=== PATIENT | female | born 1965 | race Caucasian/White ===

== ENCOUNTER 2020-03-16 09:53 | Emergency (ER) | payer OTHER ==
--- OUTSIDE RECORDS SUMMARY | 2020-03-16 09:56 | XMS REPORT | Summary of Care ---
:1965 Author Organization [facility] - [facility] Address [address] [place] [id number] Care Team Providers Name Role Phone Pcp, Patient Does Not Have A Primary Care Provider +[id number] 0-0000 Reason for Visit Reason Comments Follow-up Impingement syndrome of righ t shoulder Encounter Details Date Type Department Care Team Description 01/20/2020 Office Visit [facility] Orthopaedic Malik Alston S, T raumatic complete Surgery- [place] PAC tear of right rotator [address], [address], initial [address] encounter (Primary Dx) [place] [address] [address] [place], [place] [phone] Allergies No Known Allergiesdocumented as of this encounter (statuses as of 01/20/2020) Medications Medication Sig Dispensed Refills Start Date End Date Status ALPRAZolam (XANAX) 0.5 mg 0 03/19/2015 Active tablet buPROPion XL (WELLBUTRIN 0 02/12/2015 Active XL) 300 mg 24 hr tablet omeprazole (PRILOSEC) 40 0 03/31/2015 Active mg capsule valACYclovir (VALTREX) 1 0 04/11/2015 Active gram tablet zolpidem (AMBIEN CR) 12.5 0 04/12/2015 Active mg CR tablet cyclobenzaprine 10 mg TAKE 1 TABLET BY 0 11/11/2019 Active tablet MOUTH AT BEDTIME NEEDED FOR SPASM. WILL CAUSE SLEEPINESS, NO DRIVING estradiol 2 mg tablet Take 2 mg by 0 09/20/2019 Active mouth daily. FLUoxetine 20 mg capsule Take 20 mg by 0 09/21/2019 Active mouth daily. medroxyPROGESTERone 10 mg Take 10 mg by 0 11/19/2019 Active tablet mouth daily. rizatriptan 10 mg Take 10 mg by 0 11/03/2019 Active disintegrating tablet mouth daily. methylPREDNISolone Take by mouth 21 Each 0 12/04/2019 Active (MEDROL, JOSEFA,) 4 mg SEE-INSTRUCTIONS tablets . follow package directions meloxicam 15 mg Take 1 tablet by 30 tablet 0 01/01/2020 Active tabletIndications: mouth daily for 0 Impingement syndrome of 30 days. right shoulder, Internal derangement of multiple sites of right knee documented as of this encounter (statuses as of 01/20/2020) Active Problems Problem Noted Date Right knee pain 04/14/2015 documented as of this encounter (statuses as of 01/20/2020) Social History Tobacco Use Types Packs/Day Years Used Date Never Smoker Smokeless Tobacco: Never Used Alcohol Use Drinks/Week oz/Week Comments Never 0 Standard drinks or equivalent 0.0 Alcohol Habits Answer Date Recorded How often do you have a drink containing alcohol? Never 12/04/2019 How many drinks containing alcohol do you have on a typical Not asked day when you are drinking? How often do you have six or more drinks on one occasion? No t asked Sex Assigned at Date Recorded Not on file COVID-19 Exposure Response Date Recorded In the last month, have you been in contact with No / Unsure 01/20/2020 9:59 AM CDT someone who was confirmed or suspected to have Coronavirus / COVID-19? documented as of this encounter Last Filed Vital Signs Vital Sign Reading Time Taken Comments Blood Pressure 115/78 01/20/2020 10:26 AM CDT Pulse 78 01/20/2020 10:26 AM CDT Temperature - - Respiratory Rate - - Oxygen Saturation - - Inhaled Oxygen Concentration - - Weight 95.3 kg (210 lb) 01/20/2020 10:26 AM CDT Height 177.8 cm (5' 10") 01/20/2020 10:26 AM CDT Body Mass Index 30.13 01/20/2020 10:26 AM CDT documented in this encounter Progress Notes Malik Alston, PAC - 01/20/2020 10:00 AM CDT Cc: Chief Complaint Patient presents with Follow-up Impingement syndrome of right shoulder Amy Segura is a 54 year old female. On her last office visit she was prescribed meloxicam and had a cortisone injection in the right shoulder, 01/01/2020, her pain resolved a week ago and she was doing quite well until yesterday. She had an acute injury where she fell on her outstretched right hand after her dog that weighs 50 pounds hit her in the chest. Afterwards she had an acute loss of strength and motion she can only flex her arm at 20 but she can actively abduct 180 She was seen on 12/04/[address] Cosby she had imaging either CT or MR that showed that she had bursitis only we tried a Medrol Dosepak and that worked well while she was on it but after it wore offbut she is not getting relief any longer for her right shoulder. Seen her previously for arthritic pain in her right knee she has medial joint line pain and lateral joint line pain that is exacerbated today Shoulder Pain The pain is present in the right shoulder. This is a recurrent problem. The current episode started 1 to 4 weeks ago. There has been no history of extremity trauma. The problem occurs constantly. The problem has been gradually worsening. The quality of the pain is described as aching, burning and sharp. The pain is at a severity of 5/10. The pain is moderate. Associated symptoms include an inability to bear weight, joint swelling and a limited range of motion. The symptoms are aggravated by activity. She has tried NSAIDS, rest and movement for the symptoms. The treatment provided no relief. Allergies Amy has No Known Allergies. Medications Outpatient Medications Prior to Visit Medication Sig Dispense Refill meloxicam 15 mg tablet Take 1 tablet by mouth daily for 30 days. 30 tablet 0 cyclobenzaprine 10 mg tablet TAKE 1 TABLET BY MOUTH AT BEDTIME NEEDED FOR SPASM. WILL CAUSE SLEEPINESS, NO DRIVING estradiol 2 mg tablet Take 2 mg by mouth daily. FLUoxetine 20 mg capsule Take 20 mg by mouth daily. medroxyPROGESTERone 10 mg tablet Take 10 mg by mouth daily. methylPREDNISolone (MEDROL, JOSEFA,) 4 mg tablets Take by mouth SEE- INSTRUCTIONS. follow package directions 21 Each 0 rizatriptan 10 mg disintegrating tablet Take 10 mg by mouth daily. ALPRAZolam (XANAX) 0.5 mg tablet buPROPion XL (WELLBUTRIN XL) 300 mg 24 hr tablet omeprazole (PRILOSEC) 40 mg capsule valACYclovir (VALTREX) 1 gram tablet zolpidem (AMBIEN CR) 12.5 mg CR tablet No facility-administered medications prior to visit. Histories Past Medical History: Diagnosis Date Anxiety Hx of migraines Past Surgical History: Procedure Laterality Date APPENDECTOMY CHOLECYSTECTOMY Social History Socioeconomic History Marital status: Spouse name: Not on file Number of children: Not on file Years of education: Not on file Highest education level: Not on file Occupational History Not on file Social Needs Financial resource strain: Not on file Food insecurity Worry: Not on file Inability: Not on file Transportation needs Medical: Not on file Non-medical: Not on file Tobacco Use Smoking status: Never Smoker Smokeless tobacco: Never Used Substance and Sexual Activity Alcohol use: Never Alcohol/week: 0.0 standard drinks Frequency: Never Drug use: Not on file Sexual activity: Not on file Lifestyle Physical activity Days per week: Not on file Minutes per session: Not on file Stress: Not on file Relationships Social connections Talks on phone: Not on file Gets together: Not on file Attends denominational service: Not on file Active member of club or organization: Not on file Attends meetings of clubs or organizations: Not on file Relationship status: Not on file Intimate partner violence Fear of current or ex partner: Not on file Emotionally abused: Not on file Physically abused: Not on file Forced sexual activity: Not on file Other Topics Concern Not on file Social History Narrative Not on file Family History Problem Relation Age of Onset Diabetes Father Review of Systems Constitutional: Positive for activity change. HENT: Negative. Eyes: Negative. Respiratory: Negative. Cardiovascular: Negative. Gastrointestinal: Negative. Genitourinary: Negative. Musculoskeletal: Positive for joint swelling. Negative for gait problem and myalgias. Skin: Negative. Neurological: Negative. Psychiatric/Behavioral: Negative. Endocrine: Endocrine negative Vital Signs Ht 70" (177.8 cm) | Wt 95.3 kg (210 lb) | BMI 30.13 kg/m Physical Exam Musculoskeletal: Comments: Physical Exam Constitutional: oriented to person, place, and time. appears well-developed and well-nourished. HENT: Head: Normocephalic and atraumatic. Right Ear: External ear normal. Left Ear: External ear normal. Eyes: Conjunctivae are normal. Neck: Normal range of motion. No strabismus Neck supple. Cardiovascular: Normal rate and regular rhythm. Pulmonary/Chest: Normal respiratory rate equal chest rise and fall in no apparent distress Abdominal: Abdomen nondistended nontender Neurological: alert and oriented to person, place, and time. No asymmetry Skin: Skin is warm and dry. Psychiatric: normal mood and affect. behavior is normal. Judgment and thought content normal. Nursing note and vitals reviewed. She is tender in her biceps tendon on the right there is no asymmetry to her proximal biceps muscle there is no distal biceps pain she has a positive speed's test with pain and cannot flex her arm morethan 20 she is able to abduct 180 carefully. Has got a profound weakness to supraspinatus strength testing She had plain x-rays of her right shoulder performed at [facility] emergency centers no acute abnormality was found them they performed x-rays on another date 01/19/2020 and found no acute fracture or dislocation acromioclavicular osteoarthritis had a helical CT of the cervical spine that had no acute abnorm ality it was performed on 11/11/2019 Assessment/Plan 1. Traumatic complete tear of right rotator cuff, initial encounter She has signs on her physical exam of bicipital tendinitis and a complete tear of the supraspinatus of her rotator cuff she has been conservatively managing her shoulder pain for on this since November, we will proceed with an MRI of her right shoulder and follow-up with the results. documented in this encounter Plan of Treatment Health Maintenance Due Date Last Done Comments HEPATITIS C (HCV) SCREEN 1965 DTaP,Tdap,and Td Vaccines (1 - 1982 Tdap) PAP SMEAR 1984 Breast Cancer Screening 2003 (MAMMOGRAM) COLON CANCER SCREENING ANNUAL 2013 FIT/FOBT COLON CANCER SCREENING FIT DNA 2013 EVERY 3 YEARS COLON CANCER SCREENING 2013 SIGMOIDOSCOPY EVERY 5 YEARS COLONOSCOPY 2013 Colorectal Cancer Screening 2013 Zoster Recombinant Vaccine 2013 (SHINGRIX) (1 of 2) INFLUENZA VACCINE (#1) 2020 Depression Screening 12/31/2020 01/01/2020 PNEUMOCOCCAL 0-64 YEARS COMBINED Aged Out No longer eligible based on SERIES patient's age to complete this topic documented as of this encounter Results Not on filedocumented in this encounter Visit Diagnoses Diagnosis Traumatic complete tear of right rotator cuff, initial encounter - Primary documented in this encounter documented as of this encounter
--- OUTSIDE RECORDS SUMMARY | 2020-03-16 09:56 | XMS REPORT | Summary of Care ---
:1965 Author Organization [facility] - [facility] Address [address] [place] [id number] Care Team Providers Name Role Phone Pcp, Patient Does Not Have A Primary Care Provider +1-000-00 0-0000 Reason for Visit Reason Comments Follow-up Right Shoulder Inflammation Encounter Details Date Type Department Care Team Description 01/01/2020 Office Visit [facility] Orthopaedic Malik Alston I mpingement syndrome of right shoulder (Primary Dx); Surgery- [place] PAC Internal derangement of multiple sites o f right knee [address], [address] [place] [address] [address] [place], [place] [phone] Allergies No Known Allergiesdocumented as of this encounter (statuses as of 01/01/2020) Medications Medication Sig Dispensed Refills Start Date [...] as of this encounter (statuses as of 01/01/2020) Active Problems Problem Noted Date Right knee pain 04/14/2015 documented as of this encounter (statuses as of 01/01/2020) Social History Tobacco Use Types Packs/Day Years [...] Assigned at Date Recorded Not on file Job Start Date Occupation Industry Not on file Not on file Not on file Travel History Travel Start Travel End No recent travel history available. COVID-19 Exposure Response Date Recorded In the last month, have you been in contact with No / Unsure 01/01/2020 8:18 AM CDT someone who was confirmed or suspected to have Coronavirus / COVID-19? documented as of this encounter Last Filed Vital Signs Vital Sign Reading Time Taken Comments Blood Pressure 123/70 01/01/2020 8:21 AM CDT Pulse 83 01/01/2020 8:21 AM CDT Temperature - - Respiratory Rate - - Oxygen Saturation - - Inhaled Oxygen Concentration - - Weight 95.3 kg (210 lb) 01/01/2020 8:21 AM CDT Height 177.8 cm (5' 10") 01/01/2020 8:21 AM CDT Body Mass Index 30.13 01/01/2020 8:21 AM CDT documented in this encounter Progress Notes Malik Alston S, PAC - 01/01/2020 8:15 AM CDT Cc: Chief Complaint Patient presents with Follow-up Right Shoulder Inflammation Amy Segura is a 54 year old female. She was seen on 12/04/[address] [...] Prior to Visit Medication Sig Dispense Refill cyclobenzaprine 10 mg tablet TAKE 1 TABLET [...] Financial resource strain: Not on file Food insecurity: Worry: Not on file Inability: Not on file Transportation needs: Medical: Not on file Non-medical: Not on file Tobacco Use Smoking status: Never Smoker Smokeless tobacco: Never Used Substance and Sexual Activity Alcohol use: Never Alcohol/week: 0.0 standard drinks Frequency: Never Drug use: Not on file Sexual activity: Not on file Lifestyle Physical activity: Days per week: Not on file Minutes per session: Not on file Stress: Not on file Relationships Social connections: Talks on phone: Not on file Gets together: Not on file Attends hoahaoism service: Not on file Active member of club or organization: Not on file Attends meetings of clubs or organizations: Not on file Relationship status: Not on file Intimate partner violence: Fear of current or ex partner: Not [...] Psychiatric/Behavioral: Negative. Endocrine: Endocrine negative Vital Signs BP 123/70 | Pulse 83 | Ht 70" (177.8 cm) | Wt 95.3 kg (210 lb) | BMI 30.13 kg/m Physical Exam Musculoskeletal: Physical Exam Constitutional: oriented to person, place, [...] normal. Nursing note and vitals reviewed. She has a positive Epstein and Mineer impingement test of the right shoulder her strength is 5 over 5 to internal rotation external rotation she does have some weakness to supraspinatus strength testing on the right it was 45 compared to 5 over 5 on the left Assessment/Plan 1. Impingement syndrome of right shoulder 2. 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 Patient received an ultrasound guided injection of 1cc kenalog and 4cc lidocaine to the right shoulder. The patient was examined with ultrasound machine and the posterior injection portal was localized and the skin was indented with a needle. The coracoid was identified anteriorly. The skin was prepped with Betadine and then with alcohol. Ethyl chloride spray was used to provide local anesthesia. The needle was advanced under ultrasound guidance just below the posterior corner of the acromion directed toward the coracoid. 1 cc of Kenalog and 4 cc of 1% lidocaine without epinephrine were injected into the subacromial space. The puncture wound was cleansed with alcohol dried with a sterile 4 x 4 and a sterile Band-Aid was applied. Patient tolerated procedure well. No reactions noted. External rotation -Lay on your side and take a 2-1/2 pound weight with the weight in your top hand and externally rotate until the hand is parallel with the bed, perform the exercises in sets of 10.Do as many sets of 10 as you can without pain iuntil you can do 6 sets of 10, perform exercises once a day. Internal rotation- Then put the weight in your lower hand internally rotate the hand to the body perform reps -same as previous. Supraspinatus with the arm out to the side, bringing your arms forward 30 degrees or 1 foot anteriorturn the thumbs down with a 2-1/2 pound weight lower your arms and bring them back up to shoulder height. Do not go higher than shoulder height perform sets of 10. do his many sets of ten as you can pain-free until they can do 6 sets of 10. Wall Crawl For range of motion perform the wall crawl test allowing her fingers to crawl up the wall as high asyou can until you can get to the point where your arm is by your head, which is 180 degrees of abduction. When you get high enough to hold the top of the door or Hold onto that with your hand and thenlower your body to bring your arm to your head. they are all daily exercises. documented in this encounter Plan of Treatment Health Maintenance Due Date Last Done Comments HEPATITIS C (HCV) SCREEN 1965 DTaP,Tdap,and Td Vaccines (1 - 1974 Tdap) PAP SMEAR 1984 Breast Cancer Screening 2003 (MAMMOGRAM) COLONOSCOPY 2013 Zoster Recombinant Vaccine 2013 (SHINGRIX) (1 of 2) INFLUENZA VACCINE (#1) 2020 Depression Screening 12/31/2020 01/01/2020 PNEUMOCOCCAL 0-64 YEARS COMBINED Aged Out No longer eligible based on SERIES patient's age to complete this topic documented as of this encounter Results Not on filedocumented in this encounter Visit Diagnoses Diagnosis Impingement syndrome of right shoulder - Primary Other affections of shoulder region, not elsewhere classified Internal derangement of multiple sites o f right knee documented in this encounter documented as of this encounter
--- OUTSIDE RECORDS SUMMARY | 2020-03-16 09:56 | XMS REPORT | Continuity of Care Document ---
:1965 Author Organization [facility] t Address [facility] [place] [address] Care Team Providers Name Role Phone CARMELA Attending Clinician Unavailable Doctor Unassigned, Name Attending Clinician Unavailable Alecia CHUA S Attending Clinician Jose Cosby MD Attending Clinician Problems Condition Condition Condition Status Onset Resolution Last Treating Co mments Source Name Details Category Date Date Treatment Clinician Date Rotator Rotator Problem Active Univers cuff cuff ity of strain, strain, [place] right, right, Physici initial initial ans encounter encounter History of History of Problem Resolve Univers arthritis arthritis d ity of [place] Physici ans History of History of Problem Resolve Univers depression depression d it y of [place] Physici ans History of History of Problem Resolve Univers Gall[place] d it y [place] problem [place] problem [place] Physici ans History of History of Problem Resolve Univers pancreatit pancreatit d it y of is is [place] Physici ans Allergies, Adverse Reactions, Alerts This patient has no known allergies or adverse reactions. Family History Family Member Diagnosis Comments Start Date Stop Date Source Unknown Family Family history of Other Uni versity of [place] Member diabetes mellitus Physici ans Unknown Family Family history of Other [facility] vers[place] Member Heart trouble Physicians Unknown Family Family history of Other [facility] vers[place] Member arthritis Physicians Unknown Family Family history of Other [facility] vers[place] Member malignant neoplasm Physic ians Medications Ordered Filled Start Stop Current Ordering Indication Dosage Frequency Signature Comments Components Source Medication Medication Date Date Medication? Clinician (SIG) Name Name Cyclobenzap Cyclobenzap Mary CHURCH Q0.3333D TAKE 1 Univers rine HCl - rine HCl - 9 CARMELA TABLET 3 ity of 5 MG Oral 5 MG Oral 00:00: M.D. TIMES [place] Tablet Tablet 00 DAILY Physici NEEDED. ans Procedures Procedure Date / Time Performed Performing Clinician Korin e MR Shoulder wo 2020-03-04 00:00:00 [facility] f [place] contrast [id number] Physicians Plan of Care Planned Activity Planned Date Details Comments Source Future Appointment 2020-04-01 Patrick EDGE [facility] 15:45:00 Shayy GIBSON Encounters Start End Encounter Admission Attending Care Care Encounter Source Date/Time Date/Time Type Type Clinicians Facility Department ID 2020-03-15 2020-03-15 Outpatient [id number] [facility] 11:16:00 11:16:00 [facility] 2020-03-11 2020-03-11 Appointmen CARMELA [facility] Orthopedics [id number] Univers 13:15:00 13:15:00 t; Joe CHURCH at [facility] RANJIT Medicine Physici [facility] A 2020-03-04 2020-03-04 Appointmen CARMELA [facility] Orthopedics [id number] Univers 11:15:00 11:15:00 t; Joe CHURCH at [facility] RANJIT [facility] Physici [facility] A 2020-03-02 2020-03-02 Orders Doctor NIXON [id number] 00:00:00 00:00:00 Only Unassigned, [place] [id number] [facility] [id number] 2020-02-28 2020-02-28 CHRISTINA Ward [id number] 00:00:00 00:00:00 [facility] [id number] Surgical [id number] Specialti [id number] [address] [place] 2020-02-19 2020-02-19 Office CHRISTINA Cosby [id number] 09:27:22 10:09:07 Visit [facility] [id number] Surgical [id number] Specialti [id number] es [address] [place] 2020-02-19 2020-02-19 Orders Doctor TIFFANI [id number] 00:00:00 00:00:00 Only [place]assigned, [place] [id number] [facility] [id number] Results Test Test Test Results Result Source Description Time Comments Comments MR Shoulder wo 2020-02- PROCEDURE [facility] [id number] INFORMATION:Exam: MR Right Michael 17:13:00 Upper Extremity Joint Phy sicians Without Contrast; ShoulderExam date and time: 03/10/2020 5:14 PMAge: 54 years oldClinical indication: Strain of muscle(s) and tendon(s) of the rotator cuff ofright shoulder, initial encounter; Additional info: S46.011a strain ofmuscle(s) and tendon(s) of the rotator cuff of right shoulder, initialencounter/s46.011a strain of muscle(s) and tendon(s) of the rotator cuff ofright shoulder, initial encounter; 54-year-old female reports history of rightshoulder pain and subjective instability for approximately 1 week aftershoulder dislocation on March 01, 2020, patient reports shoulderdislocation when she raised arm above headTECHNIQUE:Imaging protocol: MR of the Right upper extremity without contrast. Examfocused on the shoulder.COMPARISON:1. CR SHOULDER SERIES DX, RIGHT 03/01/2020 8:36 PM2. SHOULDER SERIES DX, RIGHT 03/01/2020 2:50:58 PMFINDINGS:Rotator cuff:1. High-grade full-thickness and near complete tear of the supraspinatustendon at its insertion. There are small bands of residual intact insertionalfibers anteriorly and posteriorly. Bulk of the tendon is retracted 3 cm.2. High-grade complete tear of the infraspinatus tendon with 5 cm tendonretraction.3. The subscapularis is intact.4. Intramuscular edema within the supraspinatus and infraspinatus musclescompatible with acute/subacute rotator cuff injury. No definite rotator cuffmuscle atrophy. Evaluation for infraspinatus muscle atrophy limited by markedmusculotendinous retraction.5. High-riding humeral head compatible with massive rotator cuff tear.Labrum and biceps tendon:6. Distorted and indistinct inferior glenoid labrum with abnormal labralsignal compatible with complex inferior labral tear. No displaced labral tissueevident on this exam. Incidental note of an anterior superior sublabralforamen, normal variant.7. The biceps tendon is intact and located normally within the bicipitalgroove.Glenohumer al joint:8. Glenohumeral joint cartilage grossly preserved.9. No significant glenohumeral joint arthritic osseous spurring.10. No intra-articular loose body evident.11. No significant joint effusion.Osseous and other:12. Acute/subacute mild Hill-Sachs impaction fracture of the posterosuperiorhumeral head. No osseous glenoid fracture or bone contusion.13. Moderate hypertrophic acromioclavicular arthropathy with inferiorspurring.IMPRESSIO N:1. High-grade full-thickness and near complete tear of the supraspinatus tendonwith tendon fiber retraction.2. High-grade full-thickness and complete tear of the infraspinatus tendon withtendon retraction.3. Supraspinatus and infraspinatus intramuscular edema compatible withacute/subacute rotator cuff injury.4. Indistinct complex tearing of the inferior glenoid labrum.5. Acute/subacute mild Hill-Sachs impaction fracture of the humeral head.6. Moderate hypertrophic acromioclavicular arthropathy with inferior spurring.Tucker Pham MD On 03/11/2020 11:46:55; [id number] by: Tucker Pham MDDictated Date/time: 03/11/20 11:46Electronically Signed by: Tucker Pham MD 03/11/2011:46FINAL REPORT
--- OUTSIDE RECORDS SUMMARY | 2020-03-16 09:56 | XMS REPORT | Summary of Care ---
:1965 Author Organization [facility] Address [address] [place] [address] Care Team Providers Name Role Phone Pcp, Patient Does Not Have A Primary Care Provider +1-000-00 0-0000 Reason for Visit Reason Comments Follow-up Impingement syndrome of righ t shoulder Encounter Details Date Type Department Care Team Description 01/20/2020 Office Visit [facility] Orthopaedic Malik Alston S, T raumatic complete Surgery- [place] [facility] tear of right rotator [address], [address], [address] encounter (Primary Dx) [place] [address] [place], [place] [phone] Allergies No Known Allergiesdocumented as of this [...] file Gets together: Not on file Attends faith service: Not on file Active member of [...] x-rays of her right shoulder performed at [facility] emergency centers no acute abnormality was [...]
--- OUTSIDE RECORDS SUMMARY | 2020-03-16 09:56 | XMS REPORT | Summary of Care ---
:1965 Author Organization [facility] Address [address] [place] [address] Care Team Providers Name Role Phone Pcp, Patient Does Not Have A Primary Care Provider +1-000-00 0-0000 Reason for Visit Reason Comments Follow-up Right Shoulder Inflammation Encounter Details Date Type Department Care Team Description 01/01/[address] [facility] Orthopaedic Malik Alston I mpingement syndrome of right shoulder (Primary Dx); Surgery- [place] PAC Internal derangement of multiple sites o f right knee [address], [address] [place] [address] [address] [place], [place] [phone] Allergies No Known Allergiesdocumented as of this [...] file Gets together: Not on file Attends anglican service: Not on file Active member of [...]
--- OUTSIDE RECORDS SUMMARY | 2020-03-16 09:57 | XMS REPORT | Summary of Care ---
:1965 Author Organization [facility] - Health Address [address] [place] [address] Care Team Providers Name Role Phone Pcp, Patient Does Not Have A Primary Care Provider +1-000-00 0-0000 Encounter Details Date Type Department Care Team Description 11/11/2019 Orders Only [facility] Doctor Unassigned, No [address] [facility] [place] [address] [address] [place] [id number] Allergies No Known Allergiesdocumented as of this encounter (statuses as of 01/22/2020) Medications Medication Sig Dispensed Refills Start Date End Date Status ALPRAZolam (XANAX) 0.5 mg tablet 0 015 Active buPROPion XL (WELLBUTRIN XL) 300 mg 0 01/17 Active 24 hr tablet omeprazole (PRILOSEC) 40 mg capsule 0 03/18 Active valACYclovir (VALTREX) 1 gram tablet 0 Active zolpidem (AMBIEN CR) 12.5 mg CR 0 04/12/20 15 Active tablet documented as of this encounter (statuses as of 01/22/2020) Active Problems Problem Noted Date Right knee pain 04/14/2015 documented as of this encounter (statuses as of 01/22/2020) Social History Tobacco Use Types Packs/Day Years Used Date Never Smoker Alcohol Use Drinks/Week oz/Week Comments Not Asked 0 Standard drinks or equivalent 0.0 Sex Assigned at Date Recorded Not on file COVID-19 Exposure Response Date Recorded In the last month, have you been in contact with No / Unsure 01/20/2020 9:59 AM CDT someone who was confirmed or suspected to have Coronavirus / COVID-19? documented as of this encounter Last Filed Vital Signs Not on filedocumented in this encounter Plan of Treatment Health [...] this topic documented as of this encounter Procedures Procedure Name Priority Date/Time Associated Diagnosis Comme nts EXTERNAL PROVIDER Routine 11/11/2019 12:01 AM CDT RECORDS documented in this encounter Results Not on filedocumented in this encounter Insurance Payer Benefit Plan / Group Subscriber ID Effective Dates Phone Address Type [place] [id number] 2014-Present HMO/PPO/POS documented as of this encounter
--- OUTSIDE RECORDS SUMMARY | 2020-03-16 09:57 | XMS REPORT | Summary of Care ---
:1965 Author Organization [facility] Address [address] [place] [address] Care Team Providers Name Role Phone Pcp, Patient Does Not Have A Primary Care Provider +1-000-00 0-0000 Reason for Visit Reason Comments Refill Request Encounter Details Date Type Department Care Team Description 02/03/2020 Refill [facility] Orthopaedic Guzman Cosby MD Refill Request Surgery- [place] [address] [facility] [address] [facility], [address] [place] [address] [address] [place] [address] [phone] Allergies No Known Allergiesdocumented as of this encounter (statuses as of 02/05/2020) Medications Medication Sig Dispensed Refills Start End Date Status Date ALPRAZolam (XANAX) 0.5 0 Active mg tablet 5 buPROPion XL 0 Active (WELLBUTRIN XL) 300 mg 5 24 hr tablet omeprazole (PRILOSEC) 0 Active 40 mg capsule 5 valACYclovir (VALTREX) 0 Active 1 gram tablet 5 zolpidem (AMBIEN CR) 0 Active 12.5 mg CR tablet 5 cyclobenzaprine 10 mg TAKE 1 TABLET 0 Active tablet BY MOUTH AT 0 BEDTIME NEEDED FOR SPASM. WILL CAUSE SLEEPINESS, NO DRIVING estradiol 2 mg tablet Take 2 mg by 0 Active mouth daily. 0 FLUoxetine 20 mg Take 20 mg by 0 Active capsule mouth daily. 0 medroxyPROGESTERone 10 Take 10 mg by 0 Active mg tablet mouth daily. 0 rizatriptan 10 mg Take 10 mg by 0 Active disintegrating tablet mouth daily. 0 methylPREDNISolone Take by mouth 21 Each 0 Active (MEDROL, JOSEFA,) 4 mg SEE-INSTRUCTIO 0 tablets NS. follow package directions MELOXICAM 15 mg TAKE 1 TABLET 30 tablet 0 Active tabletIndications: BY MOUTH EVERY 0 Impingement syndrome of DAY right shoulder meloxicam (MOBIC) 15 mg Take 1 tablet 30 tablet 0 Discontinued tablet by mouth 0 20 daily. documented as of this encounter (statuses as of 02/05/2020) Active Problems Problem Noted Date Right knee pain 04/14/2015 documented as of this encounter (statuses as of 02/05/2020) Social History Tobacco Use Types Packs/Day Years [...] been in contact with No / Unsure 01/22/2020 12:44 PM CDT someone who was confirmed or suspected to have Coronavirus / COVID-19? documented as of this encounter Last Filed Vital Signs Not on filedocumented in this encounter Miscellaneous Notes Telephone Encounter - Aleida Ludwig - 02/04/2020 11:59 AM CDTPatient is having her MRI tomorrow and is requesting something to help her relax through the testing. She reports she is claustrophobic. She is also requesting something for pain. The Meloxicam that was prescribed does not alleviate the pain. Her MRI is scheduled for 11 pm tomorrow in [place]. Aleida Ludwig 02/04/2020 12:01 PM documented in this encounter Plan of Treatment Date Type Specialty Care Team Description 02/05/2020 Office Visit Orthopedic Surgery Malik Alston, TOMA [address] [place], [place] [phone] 02/17/2020 Appointment Radiology Guzman Cosby MD [address] [place] [phone] Health Maintenance Due Date Last Done Comments [...] affections of shoulder region, not elsewhere classified documented in this encounter Insurance Payer Benefit Plan / Group Subscriber ID Effective Dates Phone Address Type [employer] [place] [id number] 2014-Present HMO/PPO/POS documented as of this encounter
--- OUTSIDE RECORDS SUMMARY | 2020-03-16 09:57 | XMS REPORT | Summary of Care ---
:1965 Author Organization [facility] - Health Address [address] [place] [address] Care Team Providers Name Role Phone Pcp, Patient Does Not Have A Primary Care Provider +1-000-00 0-0000 Reason for Referral MRI/CAT Scan (Routine) Status Reason Specialty Diagnoses / Referred By Referred To Procedures Contact Contact New Request Diagnostic Diagnoses Traumatic complete tear of right rotator cuff, initial encounter Guzman Cosby Radiology Procedures MR SHOULDER RIGHT WO MELODY Garcia MD [address] [place] [address] [place] [address] Reason for Visit Reason Comments Follow-up Impingement syndrome of righ t shoulder Encounter Details Date Type Department Care Team Description 01/20/2020 Office Visit [facility] Orthopaedic Malik Alston S, T raumatic complete Surgery- [facility] tear of right rotator [address], [address] cuff, initial [address] encounter (Primary Dx) [place] [address] [address] [place], [place] [phone] Allergies No Known Allergiesdocumented as of this [...] x-rays of her right shoulder performed at [facility] emergency centers no acute abnormality was found [...] with the results. documented in this encounter Miscellaneous Notes Addendum Note - Alice Stephens - 01/20/2020 10:00 AM CDT Addended by: ALICE STEPHENS on: 01/20/2020 04:42 PM Modules accepted: Orders documented in this encounter Plan of Treatment Name Type Priority Associated Diagnoses Order S chedule MR SHOULDER RIGHT WO IMAGING Routine Traumatic complete t ear Expected: 01/20/2020, CONTRAST of right rotator cuff, Expir es: 01/19/2021 initial encounter Health Maintenance Due Date Last Done Comments [...]
--- OUTSIDE RECORDS SUMMARY | 2020-03-16 09:57 | XMS REPORT | Summary of Care ---
:1965 Author Organization [facility] Address [address] [place] [address] Care Team Providers Name Role Phone Pcp, Patient Does Not Have A Primary Care Provider +1000-00 0-0000 Reason for Visit Reason Comments Rx Concern/Question Encounter Details Date Type Department Care Team Description 01/22/2020 Telephone [facility] Orthopaedic Grace Alston, PAC Rx Concern/Question Surgery- [address] [phone] Allergies No Known Allergiesdocumented as of this encounter (statuses as of 01/26/2020) Medications Medication Sig Dispensed Refills Start Date [...] mouth 21 Each 0 12/04/2019 Active (MEDROL, JOSFEA,) 4 mg SEE-INSTRUCTIONS tablets . follow package directions meloxicam 15 mg Take 1 tablet by 30 tablet 0 01/01/2020 Active tabletIndications: mouth daily for 0 Impingement syndrome of 30 days. right shoulder, Internal derangement of multiple sites of right knee meloxicam (MOBIC) 15 mg Take 1 tablet by 30 tablet 0 0 Active tablet mouth daily. documented as of this encounter (statuses as of 01/26/2020) Active Problems Problem Noted Date Right knee pain 04/14/2015 documented as of this encounter (statuses as of 01/26/2020) Social History Tobacco Use Types Packs/Day Years [...] Notes Telephone Encounter - Aleida Ludwig - 01/26/2020 3:46 PM CDTMedication sent to pharmacy on file. Aleida Ludwig 01/26/2020 3:46 PM elephone Encounter - Malik Alston PAC - 01/26/2020 3:35 PM CDTmobic 15 mg one by mouth daily #30 elephone Encounter - Deb Zayas - 01/22/2020 1:55 PM CDT Patient was seen in the office on 01/20/2020. We referred her for an MRI of the Right Shoulder. She is requesting pain medication be called to her pharmacy? Assessment/Plan 1. Traumatic complete tear of right [...] Date Type Specialty Care Team Description 02/05/2020 Appointment Radiology Guzman Cosby MD [address] [place] [phone] Health Maintenance Due Date Last Done [...] Dates Phone Address Type [employer] II [id number] 2014-Present HMO/PPO/POS documented as of this encounter
--- OUTSIDE RECORDS SUMMARY | 2020-03-16 09:57 | XMS REPORT | Summary of Care ---
:1965 Author Organization [facility] Address [address] [place] [address] Care Team Providers Name Role Phone Pcp, Patient Does Not Have A Primary Care Provider +1-000-00 0-0000 Reason for Visit Reason Comments Shoulder Pain right shoulder x 3 weeks Encounter Details Date Type Department Care Team Description 02/05/2020 Office Visit [facility] Orthopaedic Malik Alston S, T raumatic complete Surgery- [place] [facility] tear of right rotator [address], [address], initial [address] encounter (Primary Dx) [place] [address] [address] [place], [place] [phone] [address] [phone] Allergies No Known Allergiesdocumented as of this encounter (statuses as of 02/05/2020) Medications Medication Sig Dispensed Refills Start Date [...] mg SEE-INSTRUCTIONS tablets . follow package directions MELOXICAM 15 mg TAKE 1 TABLET BY 30 tablet 0 02/05/2020 Active tabletIndications: MOUTH EVERY DAY Impingement syndrome of right shoulder methylPREDNISolone Take 21 tablets 1 Each 0 02/05/2020 Active (MEDROL, JOSEFA,) 4 mg by mouth tabletsIndications: SEE-INSTRUCTIONS Traumatic complete tear . follow package of right rotator cuff, directions initial encounter diclofenac 75 mg EC Take 1 tablet by 60 tablet 0 02/05/2020 Active tabletIndications: mouth 2 (two) 0 Traumatic complete tear times daily with of right rotator cuff, meals for 30 initial encounter days. documented as of this encounter (statuses as [...] Sign Reading Time Taken Comments Blood Pressure 128/87 02/05/2020 11:13 AM CDT Pulse 81 02/05/2020 11:13 AM CDT Temperature - - Respiratory Rate - - Oxygen Saturation - - Inhaled Oxygen Concentration - - Weight 95.3 kg (210 lb) 02/05/2020 11:13 AM CDT Height 177.8 cm (5' 10") 02/05/2020 11:13 AM CDT Body Mass Index 30.13 02/05/2020 11:13 AM CDT documented in this encounter Progress Notes Malik Alston, PAC - 02/05/2020 11:15 AM CDT Cc: Chief Complaint Patient presents with Shoulder Pain right shoulder x 3 weeks Amy Segura is a 54 year old female. Awaiting MRI, attempting to get approval through her insurance company it was supposed to be today but it was canceled due to pending approval. Pain is 10 over 10 in the morning. Last cortisone injection was 01/01/2020. Is currently taking meloxicam 7.5 mg by mouth daily, it was increased to twice a day. On her last office visit she was [...] Prior to Visit Medication Sig Dispense Refill MELOXICAM 15 mg tablet TAKE 1 TABLET BY MOUTH EVERY DAY 30 tablet 0 cyclobenzaprine 10 mg tablet [...] file Gets together: Not on file Attends yarsanism service: Not on file Active member of [...] Onset Diabetes Father Review of Systems Constitutional: Negative. HENT: Negative. Eyes: Negative. Respiratory: Negative. Breasts: Negative. Cardiovascular: Negative. Gastrointestinal: Negative. Genitourinary: Negative. Musculoskeletal: Positive for myalgias. Negative for joint swelling. Skin: Negative. Neurological: Positive for weakness. Psychiatric/Behavioral: Negative. Endocrine: Endocrine negative Vital Signs BP 128/87 | Pulse 81 | Ht 70" (177.8 cm) | Wt [...] a profound weakness to supraspinatus strength testing Assessment/Plan 1. Traumatic complete tear of right rotator cuff, initial encounter The MRI of her shoulder is for surgical planning. She has been treated with oral anti-inflammatories prescription strength as well as at home exercise program physician directed. She's having severe pain and needs her rotator cuff repair, she has tried meloxicam at 7.5 and 15 mgwe will discontinue meloxicam and start diclofenac sodium. She can't have another cortisone injection until its in 3 months since the last one and the last onewas only just over a month ago. I will give her a one-time short course of oral steroids with a Medrol Dosepak she doesn't have diabetes. She should take the Medrol Dosepak first and on the last day of the Dosepak she can start diclofenacsodium And we'll follow-up with her MRI results. documented in this encounter Plan of Treatment Date Type Specialty Care Team Description 02/17/2020 Appointment Radiology Guzman Cosby MD [address] [place], [place] [phone] Health Maintenance Due Date Last Done [...]
--- OUTSIDE RECORDS SUMMARY | 2020-03-16 09:57 | XMS REPORT | Summary of Care ---
:1965 Author Organization [facility] - Health Address [address] [place] [address] Care Team Providers Name Role Phone Pcp, Patient Does Not Have A Primary Care Provider +1-000-00 0-0000 Encounter Details Date Type Department Care Team Description 01/21/2020 Orders Only [facility] Doctor Unassigned, No 301 [facility] [place] [address] [address] [place] [address] Allergies No Known Allergiesdocumented as of this encounter (statuses as of 01/21/2020) Medications Medication Sig Dispensed Refills Start Date [...] as of this encounter (statuses as of 01/21/2020) Active Problems Problem Noted Date Right knee pain 04/14/2015 documented as of this encounter (statuses as of 01/21/2020) Social History Tobacco Use Types Packs/Day Years [...] Associated Diagnosis Comme nts EXTERNAL PROVIDER Routine 01/21/2020 12:01 AM CDT RECORDS documented in this encounter Results Not on filedocumented in this encounter Insurance Payer Benefit Plan / Group Subscriber ID Effective Dates Phone Address Type [place] [id number] 2014-Present HMO/PPO/POS documented as of this encounter
--- OUTSIDE RECORDS SUMMARY | 2020-03-16 09:57 | XMS REPORT | Summary of Care ---
:1965 Author Organization [facility] Address [address] [place] [address] Care Team Providers Name Role Phone Pcp, Patient Does Not Have A Primary Care Provider +1-000-00 0-0000 Reason for Visit Reason Comments Shoulder Pain right shoulder x 3 weeks Encounter Details Date Type Department Care Team Description 02/05/2020 Office Visit [facility] Orthopaedic Malik Alston S, T raumatic complete Surgery- [place] PAC tear of right rotator [address], [address] cuff, initial [address] encounter (Primary Dx) [place] [address] [address] [place], [place] [phone] [phone] Allergies No Known Allergiesdocumented as of this [...] Appointment Radiology Guzman Cosby MD [address] [place], [place] [phone] Health Maintenance Due Date [...]
--- OUTSIDE RECORDS SUMMARY | 2020-03-16 09:58 | XMS REPORT | Summary of Care ---
:1965 Author Organization [facility] Address [address] [place] [address] Care Team Providers Name Role Phone Pcp, Patient Does Not Have A Primary Care Provider +1-000-00 0-0000 Reason for Visit Reason Comments Shoulder Pain right shoulder x 3 weeks Encounter Details Date Type Department Care Team Description 02/05/2020 Office Visit [facility] Orthopaedic Bon Alston S, T raumatic complete Surgery- [place] PAC tear of right rotator [address] [place], [address] cuff, initial [address] encounter (Primary Dx) [place] [address] [address] [place], [place] [phone] [address] [phone] Allergies No Known Allergiesdocumented as of this [...] cuff, meals for 30 initial encounter days. diazePAM (VALIUM) 10 mg Take 1 tablet by 2 tablet 0 0 Active tabletIndications: mouth once now 0 Traumatic complete tear for 1 dose. Take of right rotator cuff, one tablet by initial encounter mouth 30 minutes prior to procedure may repeat once documented as of this encounter (statuses as [...] CDT documented in this encounter Progress Notes Bon Alston, PAC - 02/05/2020 11:15 AM CDT [...] file Gets together: Not on file Attends advent service: Not on file Active member of [...] her MRI results. documented in this encounter Miscellaneous Notes Addendum Note - Bon Alston PAC - 02/05/2020 11:15 AM CDT Addended by: BON ROBERTSON on: 02/05/2020 11:57 AM Modules accepted: Orders documented in this encounter Plan of Treatment Date Type Specialty Care Team Description 02/17/2020 Appointment Radiology Guzman Cosby MD [address] [place] [phone] Health Maintenance Due Date Last Done [...]
--- OUTSIDE RECORDS SUMMARY | 2020-03-16 09:58 | XMS REPORT | Summary of Care ---
:1965 Author Organization [facility] - [facility] Address [address] [place] [address] Care Team Providers Name Role Phone Pcp, Patient Does Not Have A Primary Care Provider +1-000-00 0-0000 Encounter Details Date Type Department Care Team Description 02/05/2020 Orders Only [facility] Doctor Unassigned, No 301 [facility] Name [place] [phone] [phone] Allergies No Known Allergiesdocumented as of this encounter (statuses as of 02/18/2020) Medications Medication Sig Dispensed Refills Start Date [...] as of this encounter (statuses as of 02/18/2020) Active Problems Problem Noted Date Right knee pain 04/14/2015 documented as of this encounter (statuses as of 02/18/2020) Social History Tobacco Use Types Packs/Day Years [...] filedocumented in this encounter Plan of Treatment Date Type Specialty Care Team Description 02/19/2020 Office Visit Orthopedic Surgery Fercho Cosby MD [address] [phone] Health Maintenance Due Date Last Done [...] Name Priority Date/Time Associated Diagnosis Comme nts REFERRAL- Routine 02/05/2020 12:01 AM CDT REQUEST/RESPONSE documented in this encounter Results Not on filedocumented in this encounter Insurance Payer Benefit Plan / Group Subscriber ID Effective Dates Phone Address Type [place] [id number] 2014-Present HMO/PPO/POS documented as of this encounter
--- OUTSIDE RECORDS SUMMARY | 2020-03-16 09:58 | XMS REPORT | Summary of Care ---
:1965 Author Organization [facility] Address [address] [place] [address] Care Team Providers Name Role Phone Pcp, Patient Does Not Have A Primary Care Provider +1-000-00 0-0000 Reason for Visit Reason Comments Follow-up MRI follow up Encounter Details Date Type Department Care Team Description 02/19/2020 Office Visit [facility] Orthopaedic Guzman Cosby I mpingement syndrome Surgery- Jesus Garcia MD of right shoulder [address], [address] (Primary Dx) [place] [address] [address] [place], [place] [phone] [address] [phone] Allergies No Known Allergiesdocumented as of this encounter (statuses as of 02/20/2020) Medications Medication Sig Dispensed Refills Start Date [...] as of this encounter (statuses as of 02/20/2020) Active Problems Problem Noted Date Right knee pain 04/14/2015 documented as of this encounter (statuses as of 02/20/2020) Social History Tobacco Use Types Packs/Day Years [...] been in contact with No / Unsure 02/19/2020 10:07 AM CDT someone who was confirmed or suspected to have Coronavirus / COVID-19? documented as of this encounter Last Filed Vital Signs Vital Sign Reading Time Taken Comments Blood Pressure 132/84 02/19/2020 9:52 AM CDT Pulse 60 02/19/2020 9:52 AM CDT Temperature - - Respiratory Rate - - Oxygen Saturation - - Inhaled Oxygen Concentration - - Weight - - Height - - Body Mass Index - - documented in this encounter Progress Notes Guzman Cosby MD - 02/19/2020 9:30 AM CDT Cc: Chief Complaint Patient presents with Follow-up MRI follow up Follow up on MRI results for right shoulder Amy Segura is a 54 year old female. Patient here for MRI results of the of the right shoulder. She has noticed minor changes since the last office visit but continues to have discomfort. She has had cortisone injections previously. Allergies Amy has No Known Allergies. Medications Outpatient Medications Prior to Visit Medication Sig Dispense Refill diclofenac 75 mg EC tablet Take 1 tablet by mouth 2 (two) times daily with meals for 30 days. 60tablet 0 MELOXICAM 15 mg tablet TAKE 1 TABLET BY MOUTH EVERY DAY 30 tablet 0 methylPREDNISolone (MEDROL, JOSEFA,) 4 mg tablets Take 21 tablets by mouth SEE- INSTRUCTIONS. followpackage directions 1 Each 0 cyclobenzaprine 10 mg tablet TAKE 1 [...] file Gets together: Not on file Attends yazidi service: Not on file Active member of [...] Genitourinary: Negative. Musculoskeletal: Positive for joint swelling. Skin: Negative. Neurological: Negative. Psychiatric/Behavioral: Negative. Endocrine: Endocrine negative Vital Signs BP 132/84 | Pulse 60 Physical Exam Musculoskeletal: Comments: Physical Exam Constitutional: [...] a profound weakness to supraspinatus strength testing IMPRESSION: 1. Rotator cuff tendinosis and/or strain with retracted full-thickness tear through the majority of the supraspinatus and infraspinatus tendons. 2. Extensive infraspinatus muscle strain without significant atrophy or other interstitial tear. 3. Nondisplaced posterior labral tear. 4. Moderate acromio clavicular arthrosis with inferior projecting spur formation as well as lateral subacromial spurring and downsloping of the type II acromion process predisposing to rotator cuff outlet impingement. 5. Small glenohumeral joint effusion extends throughout the subacromial/subdeltoid bursa. Electronically Signed By: Guzman Garner MD, Board Certified by The [place] [employer] Signed On: 02/16/2020 9:14:00 AM Assessment/Plan Impingement Syndrome of the right shoulder Referral to PT to increase strength and ROM. Follow up 4 weeks. documented in this encounter Plan of Treatment [...] not elsewhere classified documented in this encounter documented as of this encounter"
--- OUTSIDE RECORDS SUMMARY | 2020-03-16 09:58 | XMS REPORT | Summary of Care ---
:1965 Author Organization [facility] Address [address] [place] [address] Care Team Providers Name Role Phone Pcp, Patient Does Not Have A Primary Care Provider +1-000-00 0-0000 Reason for Referral MRI/CAT Scan (Routine) Status Reason Specialty Diagnoses / Referred By Referred To Procedures Contact Contact Pending Review Diagnostic Diagnoses Traumatic complete tear of right rotator cuff, initial encounter Malik Alston, Radiology Procedures MR SHOULDER RIGHT WO CONTRAST PAC [address] [place] [address] Reason for Visit Reason Comments Orders Encounter Details Date Type Department Care Team Description 01/22/2020 Telephone [facility] Orthopaedic Grace Alston, PAC Orders Surgery- [place] [address] [place] [address] [address] [place] [address] Allergies No Known Allergiesdocumented as of [...] tablet cyclobenzaprine 10 mg TAKE 1 TABLET 0 11/11/2019 Active tablet BY MOUTH AT BEDTIME NEEDED FOR SPASM. [...] 0 12/04/2019 Active (MEDROL, JOSEFA,) 4 mg SEE-INSTRUCTION tablets S. follow package directions meloxicam 15 mg Take 1 tablet 30 tablet 0 01/01/2020 tabletIndications: by mouth daily 0 Impingement syndrome of for 30 days. right shoulder, Internal derangement of [...] on filedocumented in this encounter Miscellaneous Notes Addendum Note - Alice Stephens - 02/05/2020 4:51 PM CDT Addended by: ALICE STEPHENS on: 02/05/2020 04:51 PM Modules accepted: Orders elephone Encounter - Alice Stephens - 02/05/2020 4:47 PM CDTI did not have this patient MRI but went ahead and I have filled out the [facility] form, and faxed with demographics for scheduling. Alice Rosenthalca 02/05/2020 4:47 PM elephone Encounter - Deb Zayas - 01/22/2020 1:57 PM CDTPatient would like for her MRI to be sent to [facility] in [place], [place]. There fax# is [phone]. Thank you. documented in this encounter Plan of Treatment Date Type Specialty Care Team Description 02/17/2020 Appointment Radiology Guzman Cosby MD [address] [place] [phone] Name Type Priority Associated Diagnoses Order S chedule MR SHOULDER RIGHT WO IMAGING Routine Traumatic complete t ear Expected: 02/05/2020, CONTRAST of right rotator cuff, Expir es: 02/04/2021 initial encounter Health Maintenance Due Date Last [...] encounter - Primary documented in this encounter Insurance Payer Benefit Plan / Group Subscriber ID Effective Dates Phone Address Type [employer] II [id number] 2014-Present HMO/PPO/POS documented as of this encounter
--- OUTSIDE RECORDS SUMMARY | 2020-03-16 09:58 | XMS REPORT | Summary of Care ---
:1965 Author Organization [facility] Address [address] [place] [address] Care Team Providers Name Role Phone Pcp, Patient Does Not Have A Primary Care Provider +1-000-00 0-0000 Reason for Visit Reason Comments Orders Encounter Details Date Type Department Care Team Description 01/22/2020 Telephone [facility] Orthopaedic Grace Alston, PAC Orders Surgery- [place] [address] [facility] [address] [facility], [place] [address] [address] [place] [address] [phone] Allergies No Known Allergiesdocumented as of this [...] this encounter Miscellaneous Notes Telephone Encounter - Amy Stephens - 02/05/2020 4:47 PM CDTI did not have this patient MRI but went ahead and I have filled out the [facility] form, and faxed with demographics for scheduling. Amy Stephens 02/05/2020 4:47 PM elephone Encounter - Deb Zayas - 01/22/2020 1:57 PM CDTPatient would like for her MRI to be sent to [facility] in [place], [place]. There fax# is [phone]. Thank you. documented in this encounter Plan of Treatment Date Type Specialty Care Team Description 02/17/2020 Appointment Radiology Guzman Cosby MD Counts include 234 beds at the [facility] [address] [place] [phone] Health Maintenance Due Date Last Done [...] Dates Phone Address Type [employer] II [id number] 2014-Present HMO/PPO/POS documented as of this encounter
--- OUTSIDE RECORDS SUMMARY | 2020-03-16 09:58 | XMS REPORT | Summary of Care ---
:1965 Author Organization [facility] Address [address] [place] [address] Care Team Providers Name Role Phone Pcp, Patient Does Not Have A Primary Care Provider +1-000-00 0-0000 Reason for Visit Reason Comments Rx Concern/Question Encounter Details Date Type Department Care Team Description 02/04/2020 Telephone [facility] Orthopaedic Guzman Cosby , Rx Concern/Question Surgery- [place] [address] [facility] [address] [facility] [place] [address] [address] [place], [place] [phone] [address] Allergies No Known Allergiesdocumented as of [...] SEE-INSTRUCTIO 0 tablets NS. follow package directions meloxicam (MOBIC) 15 mg Take 1 tablet [...] Telephone Encounter - Amy Stephens - 02/05/2020 4:42 PM CDTCalled patient, stated she came in office today, and this was discussed and fixed in office. With Malik Alston PA-C. 02/05/2020 4:43 PM elephone Encounter - Malik Alston PAC - 02/05/2020 9:16 AM CDTDiscontinue meloxicam and start diclofenac sodium elephone Encounter - Abbie Canales - 02/04/2020 6:15 PM CDT Amy Wolverton is a 54 year old female The patient is calling because she is still in pain, the meloxocam is not working. It has been 3 weeks since the last appointment and her MRI has been rescheduled and she would like to know what she can do about the pain she is experiencing. documented in this encounter Plan of Treatment Date Type Specialty Care Team Description 02/17/2020 Appointment Radiology Guzman Cosby MD [address] [phone] Health Maintenance Due Date Last Done [...] Dates Phone Address Type [employer] II [id number] 2014-Present HMO/PPO/POS documented as of this encounter
--- OUTSIDE RECORDS SUMMARY | 2020-03-16 09:58 | XMS REPORT | Summary of Care ---
:1965 Author Organization [facility] Address [address] [place] [address] Care Team Providers Name Role Phone Pcp, Patient Does Not Have A Primary Care Provider +1-000-00 0-0000 Reason for Visit Reason Comments Follow-up MRI follow up Encounter Details Date Type Department Care Team Description 02/19/2020 Office Visit [facility] Orthopaedic Guzman Cosby I mpingement syndrome Surgery- Jesus Garcia MD of right shoulder [address] [place], [address] (Primary Dx) [place] [address] [place] [address] [address] [place], [place] [phone] [address] [phone] Allergies No Known Allergiesdocumented as of this [...] file Gets together: Not on file Attends evangelical service: Not on file Active member of [...] Guzman Garner MD, Board Certified by The [place] [employer] Signed On: 02/16/2020 9:14:00 [...]
--- OUTSIDE RECORDS SUMMARY | 2020-03-16 09:59 | XMS REPORT | Summary of Care ---
:1965 Author Name RANJIT CASEY M.D. Address [facility] Unavailable , Care Team Providers Name Role Phone RANJIT CASEY M.D. Unavailable Unavailable CARMELA CASE MA, RANJIT Brand Unavailable Unavailable Functional Status Name Dates Details Functional status health issues are not documented Status: Name Dates Details Cognitive status health issues are not documented Status: Problems Name Dates Details Rotator cuff strain, right, initial encounter (840.4, S46.01 1A) Status: Active Medications Name Dates Details Cyclobenzaprine HCl - 5 MG Oral Tablet TAKE 1 TABLET 3 TIMES DAILY NEEDED. Quantity: 30 Refills: 0 RANJIT CASEY M.D. Start : 10-Mar-2020 Active Allergies and Adverse Reactions Name Dates Details Allergy history not documented Status: Past Medical History Name Dates Details History of arthritis (V13.4, Z87.39) Sta tus: Resolved History of depression (V11.8, Z86.59) St atus: Resolved History of Gallbladder problem (575.9, K82.9) Status: Resolved History of pancreatitis (V12.79, Z87.19) Status: Resolved Procedures Procedure Dates Details Procedures not documented Immunization Name Dates Details Immunizations not documented Family History Name Dates Details Family history of diabetes mellitus (V18.0, Z83.3) Comments: Other Status: Active Family history of Heart trouble (429.9, I51.9) Comments: Other Status: Active Family history of arthritis (V17.7, Z82.61) Comments: Other Status: Active Family history of malignant neoplasm (V16.9, Z80.9) Comments: Other Status: Active Social History Name Dates Details Tobacco smoking consumption unknown (finding) Vital Signs Date Test Result Details No Known Vitals to report Results Date Description Value Details Results not documented Plan of Care Name Dates Details Planned Observations Planned Goals not documented Planned Encounters Appointment; RANJIT CASEY M.D. On: 15-Mar-2020 14:0 0 Appointment; MINESH GIBSON P.A. On: 01-Apr-2020 15: 45 Interventions Provided Medication ChangesCyclobenzaprine HCl - 5 MG Oral Tablet - Rosa has a dramatic acute on chronic right shoulder rotator cuff tear. She also has axillary nerve dysfunction, though this is improving. We discussed treatment options. Due to her young age and hernear pseudo-paralytic status to the shoulder, we will plan for right shoulder arthroscopic rotator cuff repair. We will add her to the surgical schedule. P Instructions Name Dates Details Instructions not documented Encounters Appointment; RANJIT CASEY M.D. On: 04-Mar-2020 11:1 5 Encounter Diagnosis: Problem not documented Appointment; RANJIT CASEY M.D. On: 11-Mar-2020 13:1 5 Encounter Diagnosis: Problem not documented
--- OUTSIDE RECORDS SUMMARY | 2020-03-16 09:59 | XMS REPORT | Summary of Care ---
:1965 Author Organization [facility] Address [address] [place] [address] Care Team Providers Name Role Phone Pcp, Patient Does Not Have A Primary Care Provider +1-000-00 0-0000 Reason for Visit Reason Comments Refill Request Encounter Details Date Type Department Care Team Description 02/28/2020 Refill [facility] Orthopaedic Grace Alston, PAC Refill Request Surgery- [place] [address] [facility], [place] [address] [address] [place] [address] [phone] Allergies No Known Allergiesdocumented as of this encounter (statuses as of 03/02/2020) Medications Medication Sig Dispensed Refills Start End [...] 0 Impingement syndrome of DAY right shoulder methylPREDNISolone Take 21 1 Each 0 A ctive (MEDROL, JOSEFA,) 4 mg tablets by 0 tabletsIndications: mouth Traumatic complete tear SEE-INSTRUCTIO of right rotator cuff, NS. follow initial encounter package directions DICLOFENAC 75 mg EC TAKE 1 TABLET 60 tablet 0 Active tabletIndications: BY MOUTH TWICE 0 Traumatic complete tear A DAY WITH A of right rotator cuff, MEAL initial encounter diclofenac 75 mg EC Take 1 tablet 60 tablet 0 Discontinued tabletIndications: by mouth 2 0 20 Traumatic complete tear (two) times of right rotator cuff, daily with initial encounter meals for 30 days. documented as of this encounter (statuses as of 03/02/2020) Active Problems Problem Noted Date Right knee pain 04/14/2015 documented as of this encounter (statuses as of 03/02/2020) Social History Tobacco Use Types Packs/Day Years [...] tear of right rotator cuff, initial encounter documented in this encounter Insurance Payer Benefit Plan / Group Subscriber ID Effective Dates Phone Address Type [place] [id number] 2014-Present HMO/PPO/POS documented as of this encounter
--- OUTSIDE RECORDS SUMMARY | 2020-03-16 09:59 | XMS REPORT | Summary of Care ---
:1965 Author Name RANJIT CASEY M.D. Address [facility]available , Care Team Providers Name Role Phone RANJIT CASEY M.D. Unavailable Unavailable CARMELA CASE NE, RANJIT Brand Unavailable Unavailable Functional Status Name Dates Details Functional status health issues are not documented Status: Name Dates Details Cognitive status health issues are not documented Status: Problems Name Dates Details Rotator cuff strain, right, initial encounter (840.4, S46.01 1A) Status: Active Medications Name Dates Details Medications not documented Allergies and Adverse Reactions Name Dates Details Allergy history not documented Status: Procedures Procedure Dates Details MR Shoulder wo contrast [id number] Date: 04-Mar-2020 Immunization Name Dates Details Immunizations not documented Social History Name Dates Details Tobacco smoking consumption unknown (finding) Vital Signs Date Test Result Details No Known Vitals to report Results Date Description Value Details Results not documented Plan of Care Name Dates Details Planned Observations Planned Goals not documented Planned Encounters Appointment; RANJIT CASEY M.D. On: 11-Mar-2020 13:1 5 Interventions Provided Labs/Procedures/ImagingMR Shoulder wo contrast [id number]; To Be Done: 04 Mar 2020 PlanPatient has a large full-thickness rotator cuff tear. She was being treated with physical therapy, with no improvement. She then sustained a dislocation developed an axillary nerve palsy. I am concerned that her rotator cuff tear has progressed. I recommended an updated MRI to assess for rotator cuff tear progression. She will follow-up after this is complete, we will discuss arthroscopic rotator cuff repair. P Instructions Name Dates Details Instructions not documented Encounters Appointment; RANJIT CASEY M.D. On: 04-Mar-2020 11:1 5 Encounter Diagnosis: Problem not documented
--- OUTSIDE RECORDS SUMMARY | 2020-03-16 09:59 | XMS REPORT | Summary of Care ---
:1965 Author Name Yonis Tuttle M.A. Address Unavailable Unavailable , Care Team Providers Name Role Phone CARMELA Diaz, RANJIT Unavailable Unavailable CARMELA CASE [place], RANJIT Brand Unavailable Unavailable Functional Status Name [...] Z87.19) Status: Resolved Procedures Procedure Dates Details MR Shoulder wo contrast [id number] Date: 04-Mar-2020 Immunization Name Dates Details Immunizations [...] 5 Interventions Provided Labs/Procedures/ImagingMR Shoulder wo contrast [id number]; To Be Done: 04 Mar 2020 Tobacco Use Screening; Done: 10 Mar 2020PlanPatient has a large full-thickness rotator cuff tear. [...]
--- OUTSIDE RECORDS SUMMARY | 2020-03-16 09:59 | XMS REPORT | Summary of Care ---
:1965 Author Name RANJIT CASEY M.D. Address [place] Physicians Unavailable , Care Team Providers Name Role Phone RANJIT CASEY M.D. Unavailable Unavailable CARMELA CASE [place], RANJIT Brand Unavailable Unavailable Functional Status Name [...] to report Results Date Description Value Details [id number] MR Shoulder wo contrast [id number] Shoulder wo contrast MR SEE NOTES Comments : PROCEDURE INFORMATION:Exam: MR Right Upper Extremity Joint Without Contrast; ShoulderExam date and time: 03/10/2020 5:14 PMAge: 54 years oldClinical indication: Strain of muscle(s) and tendon(s) of the r otator cuff ofri ght shoulder, initial encounter; Additional info: S46.011a strain ofmuscle(s) and tendon(s) of the rotator cuff of right shoulder, initialencounter/s46.011a strain of muscle(s) and tendo n(s) of the rota tor cuff ofright shoulder, initial encounter; 54-year-old female reports history of rightshoulder pain and subjective instability for approximately 1 week aftershoulder dislocation on Se pt2019 , patient reports shoulderdislocation when she raised arm above headTECHNIQUE:Imaging protocol: MR of the Right upper extremity without contrast. Examfocused on the shoulder.COMPARISON:1 . CR SHOULDER SE CARMEL DX, RIGHT 03/01/2020 8:36 PM2. SHOULDER SERIES DX, RIGHT 03/01/2020 2:50:58 PMFINDINGS:Rotator cuff:1. High-grade full-thickness and near complete tear of the supraspinatustendon at its insertion. T here are small bands of residual intact insertionalfibers anteriorly and posteriorly. Bulk of the tendon is retracted 3 cm.2. High-grade complete tear of the infraspinatus tendon with 5 cm tendonretrac tion.3. The subscapularis is intact.4. Intramuscular edema within the supraspinatus and infraspinatus musclescompatible with acute/subacute rotator cuff injury. No definite rotator cuf fmuscle atrophy. Evaluation for infraspinatus muscle atrophy limited by markedmusculotendinous retraction.5. High-riding humeral head compatible with massive rotator cuff tear.Labrum and biceps tendon: 6. Distorted an d indistinct inferior glenoid labrum with abnormal labralsignal compatible with complex inferior labral tear. No displaced labral tissueevident on this exam. Incidental note of an anteri or superior subl abralforamen, normal variant.7. The biceps tendon is intact and located normally within the bicipitalgroove.Glenohumeral joint:8. Glenohumeral joint cartilage grossly preserved.9. No significant christ ohumeral joint arthritic osseous spurring.10. No intra- articular loose body evident.11. No significant joint effusion.Osseous and other:12. Acute/subacute mild Hill-Sachs impaction fr acture of the po sterosuperiorhumeral head. No osseous glenoid fracture or bone contusion.13. Moderate hypertrophic acromioclavicular arthropathy with inferiorspurring.IMPRESSION:1. High-grade full-thic kness and near c omplete tear of the supraspinatus tendonwith tendon fiber retraction.2. High-grade full-thickness and complete tear of the infraspinatus tendon withtendon retraction.3. Supraspinatus and infraspinatus i ntramuscular edema compatible withacute/subacute rotator cuff injury.4. Indistinct complex tearing of the inferior glenoid labrum.5. Acute/subacute mild Hill-Sachs impaction fracture of the humeral head .6. Moderate hypertrophic acromioclavicular arthropathy with inferior spurring.Tucker Pham MD On 03/11/2020 11:46:55; [id number] by: Tucker Pham MDDictated Date/ time: 03/11/20 11:46Electronically Signed by: Tucker Pham MD 03/11/2011:46FINAL REPORT Plan of Care Name Dates Details Planned Observations Planned Goals not documented Planned Encounters Appointment; RANJIT CASEY M.D. On: 15-Mar-2020 14:0 0 Appointment; MINESH GIBSON P.A. On: 01-Apr-2020 15: 45 Interventions Provided Medication ChangesCyclobenzaprine HCl - 5 MG Oral Tablet - Start Labs/Procedures/ImagingMR Shoulder wo contrast [id number]; Done: 10 Mar 2020Tobacco Use Screening; Done: 10 Mar 2020PlanPatient has [...]
--- OUTSIDE RECORDS SUMMARY | 2020-03-16 09:59 | XMS REPORT | Summary of Care ---
:1965 Author Organization [facility] Address [address] [place] [address] Care Team Providers Name Role Phone Pcp, Patient Does Not Have A Primary Care Provider +1-000-00 0-0000 Encounter Details Date Type Department Care Team Description 02/19/2020 Orders Only [facility] Doctor Unassigned, No [address] [facility] Name [place] [phone] [place] [phone] Allergies No Known Allergiesdocumented as of this encounter (statuses as of 03/02/2020) Medications Medication Sig Dispensed Refills Start Date [...] Date/Time Associated Diagnosis Comme nts REFERRAL- Routine 02/19/2020 12:01 AM CDT REQUEST/RESPONSE documented in this encounter Results Not on filedocumented in this encounter Insurance Payer Benefit Plan / Group Subscriber ID Effective Dates Phone Address Type [place] [id number] 2014-Present HMO/PPO/POS documented as of this encounter
--- OUTSIDE RECORDS SUMMARY | 2020-03-16 09:59 | XMS REPORT | Summary of Care ---
:1965 Author Name Flynn Sesay Mesha Address Unavailable Unavailable , Care Team Providers Name Role Phone RANJIT CASEY M.D. Unavailable Unavailable CARMELA CASE [place], RANJIT Brand Unavailable Unavailable Functional Status Name [...] Procedure Dates Details MR Shoulder wo contrast [id number] Date: 04-Mar-2020 Immunization Name Dates Details Immunizations [...] 5 Interventions Provided Labs/Procedures/ImagingMR Shoulder wo contrast [id number]; To Be Done: 04 Mar 2020 Instructions Name Dates Details Instructions not documented Encounters Appointment; RANJIT CASEY M.D. On: 04-Mar-2020 11:1 5 Encounter Diagnosis: Problem not documented
--- OUTSIDE RECORDS SUMMARY | 2020-03-16 09:59 | XMS REPORT | Summary of Care ---
:1965 Author Organization [facility] Address [address] [place] [address] Care Team Providers Name Role Phone Pcp, Patient Does Not Have A Primary Care Provider +1-000-00 0-0000 Encounter Details Date Type Department Care Team Description 03/02/2020 Orders Only [facility] Doctor Unassigned, No [address] [facility] Name [place] [phone] [place] [phone] Allergies No Known Allergiesdocumented as of this [...] Associated Diagnosis Comme nts EXTERNAL PROVIDER Routine 03/02/2020 12:01 AM CDT RECORDS documented in this encounter Results Not on filedocumented in this encounter Insurance Payer Benefit Plan / Group Subscriber ID Effective Dates Phone Address Type [place] [id number] 2014-Present HMO/PPO/POS documented as of this encounter
--- NOTE | 2020-03-16 11:16 | ER ---
Nurse's Notes [facility] Name: Amy Segura Age: 54 yrs Sex: Female : 1965 Arrival Date: 03/16/2020 Time: 09:56 Bed Waiting Private MD: Diagnosis: Presentation: 03/16 10:06 Chief complaint: Patient states: Had a orthoscopic rotator cuff surgery yesterday for a ca1 dislocated R shoulder. The numbness has always been there since the dislocation, but it has gotten worse today that it had moved up to the R side of my neck to the middle, R jaw and I have difficulty breathing and swallowing. Reports cough this morning. Denies sore throat. Coronavirus screen: Client denies travel out of the [place] in the last 14 days. At this time, the client does not indicate any symptoms associated with coronavirus-19. The client reports previous COVID testing was negative. Date of collection: March 15, 2020 in prep for surgery. Ebola Screen: Patient negative for fever greater than or equal to 101.5 degrees Fahrenheit, and additional compatible Ebola Virus Disease symptoms Patient denies exposure to infectious person. Patient denies travel to an Ebola-affected area in the 21 days before illness onset. No symptoms or risks identified at this time. Initial Sepsis Screen: Does the patient meet any 2 criteria? No. Patient's initial sepsis screen is negative. Does the patient have a suspected source of infection? No. Patient's initial sepsis screen is negative. Risk Assessment: Do you want to hurt yourself or someone else? Patient reports no desire to harm self or others. Onset of symptoms was March 16, 2020. 10:06 Method Of Arrival: Wheelchair ca1 10:06 Acuity: BETY 3 ca1 Triage Assessment: 10:13 General: Appears in no apparent distress. uncomfortable, Behavior is calm, cooperative, ca1 appropriate for age. Pain: Complains of pain in right arm Pain currently is 10 out of 10 on a pain scale. Respiratory: Respiratory effort is even, unlabored, Respiratory pattern is regular, symmetrical. Historical: - Allergies: 10:13 No Known Allergies; ca1 - Home Meds: 10:13 Wellbutrin Oral [Active]; Prozac Oral [Active]; oxycodone 5 mg Oral tab 1 tab every 4-6 ca1 hours [Active]; acetaminophen 650 mg Oral TbER 1 tabs every 8 hours [Active]; tramadol 50 mg Oral tab 1 tab every 4-6 hours [Active]; - PMHx: 10:13 Depression; ca1 - PSHx: 10:13 Appendectomy; Cholecystectomy; rotator Cuff surgery R; ca1 - Immunization history:: Adult Immunizations up to date. - Social history:: Smoking status: Patient denies any tobacco usage or history of. Assessment: 11:15 Reassessment: Pt left, told registration, "their doctor can see them sooner". ca1 Vital Signs: 10:06 BP 132 / 87; Pulse 85; Resp 18 S; Temp 97.1(TE); Pulse Ox 97% on R/A; Weight 95.25 kg ca1 (R); Height 5 ft. 10 in. (177.80 cm) (R); Pain 10/10; 10:06 Body Mass Index 30.13 (95.25 kg, 177.80 cm) ca1 ED Course: 09:56 Patient arrived in ED. ag5 10:11 Triage completed. ca1 10:14 Arm band placed on right wrist. ca1 11:13 Desmond Miller MD is Attending Physician. dm Administered Medications: No medications were administered Outcome: 11:15 Patient left the ED. ca1 Signatures: Desmond Miller MD MD cha Acob, Cheryl RN RN ca1 Leyla Arevalo ag5
[2020-03-16 11:21] VITALS: BP 132/87; TEMP 97.1; O2SAT 97
== END 2020-03-16 11:15 | disposition left against medical advice (07) ==
LOC: ER 09:53
DX: Z53.21 Procedure and treatment not carried out due to patient leaving prior to being seen by health care provider (principal); Z20.828 Contact with and (suspected) exposure to other viral communicable diseases
CPT/HCPCS: 99281

== ENCOUNTER 2021-09-23 18:32 | Emergency (ER) | payer OTHER ==
--- OUTSIDE RECORDS SUMMARY | 2021-09-23 18:38 | XMS REPORT | Continuity of Care Document ---
:1965 Author Organization [facility] t Address [address] [place] [address] Care Team Providers Name Role Phone No Primary Care Physician Unavailable ROBBIE Attending Clinician Unavailable MCKENZIE_NORMAN_Richard_Zain Attending Clinician Unavailable Matias Ramos Attending Clinician [phone] MCKENZIE_FRANCISCO_Yang_Arleen Attending Clinician Unavailable Frankie Soria Attending Clinician [phone] USHA AVALOS Attending Clinician Unavailable Mitchel WU Attending Clinician Unavailable Jose MARTIN Attending Clinician Unavailable CELIO Attending Clinician Unavailable ARTHUR Attending Clinician Unavailable CARMELA CASEY Attending Clinician Unavailable Doctor Unassigned, Name Attending Clinician Unavailable ISREAL DAWSON Attending Clinician Unavailable Ernesto Rausch Attending Clinician Jose Martin MD Attending Clinician Ernesto BHARDWAJ Attending Clinician Unavailable TITI_Richard_Zain Admitting Clinician Unavailable VICKI_Leanne Admitting Clinician Unavailable Payers Payer Name Policy Type Policy Number Effective Date Expiration Date Ernesto leonard WEBTPA [id number] 2020 00:00:00 WEB-TPA - [employer] [id number] 2021 (PPO) 00:00:00 [employer] [id number] 2017 00:00:00 Problems Condition Condition Condition Status Onset Resolution Last Treating Co mments Source Name Details Category Date Date Treatment Clinician Date 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 [facility] tear of tear of -11 [facility] lateral lateral 00:00: meniscus meniscus 00 of left of left knee as knee as current current injury injury 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 [facility] tear of tear of -11 [facility] medial medial 00:00: meniscus meniscus 00 of left of left knee as knee as current current injury injury Internal Internal Disease Active 2020-06 UT derangemen derangemen 0-27 He alth t of left t of left 00:00: knee knee 00 Limp Limp Disease Active 2020-06 [facility] 0-27 Health 00:00: 00 Class 1 Class 1 Disease Active 2020-06 [facility] obesity obesity 0-27 Health due to due to 00:00: excess excess 00 calories calories with with serious serious comorbidit comorbidit y and body y and body mass index mass index (BMI) of (BMI) of 34.0 to 34.0 to 34.9 in 34.9 in adult adult Effusion Effusion Disease Active 2020-06 [facility] of left of left 0-27 Health knee knee 00:00: 00 Primary Primary Disease Active 2020-06 [facility] osteoarthr osteoarthr 0-27 He alth itis of itis of 00:00: left knee left knee 00 Right knee Right knee Disease Active 2014-06 U nivers pain pain 0-28 ity of 00:00: [facility] Rotator Rotator Problem Active [facility] cuff cuff [...] y of is is [place] [facility] Shoulder Shoulder Problem Active Un[facility] rs pain, pain, ity of right right [place] [facility] Complete Complete Problem Active [facility] tear of tear of ity of right right [place] rotator rotator Physici cuff cuff ans Allergies, Adverse Reactions, Alerts Allergy Allergy Status Severity Reaction(s) Onset Inactive Treating Comm ents Source Name Type Date Date Clinician NO KNOWN Drug Active Univers ALLERGIE Class ity of [facility] Family History Family Member Diagnosis Comments Start Date Stop Date Source Unknown Family Family history of Other [facility] [place] Member diabetes mellitus Physici ans Unknown Family Family history of Other [facility] [place] Member Heart trouble Physicians Unknown Family Family history of Other [facility] [place] Member arthritis Physicians Unknown Family Family history of Other [facility] [place] Member malignant neoplasm Physic ians Social History Social Habit Start Date Stop Date Quantity Comments Source Exposure to Not sure [facility] SARS-CoV-2 (event) History [facility] [place] [facility] History [facility] Alcohol intake 2021-05-26 2021-05-26 Lifetime [facility] 00:00:00 00:00:00 non-drinker (finding) Tobacco use and 2021-04-13 2021-04-13 Smokeless tobacco [facility] exposure 00:00:00 00:00:00 non-user History [facility] 2019-12-04 2019-12-04 1 [facility] 00:00[facility]00 [facility] [place] Sex Assigned At [birth year] [facility] 00:00:00 00:00:00 Smoking Status Start Date Stop Date Source Never smoked tobacco [facility] Medications Ordered Filled Start Stop Current Ordering Indication Dosage Frequency Signature Comments Components Source Medication Medication Date Date Medication? Clinician (SIG) Name Name omeprazole 2020-06 Yes [id number] TAKE 1 UT (PriLOSEC) 07-05 9109 CAPSULE BY [facility] [address] 00:00: MOUTH 1 capsule 00 TIME EACH DAY. DO NOT CRUSH, CHEW, OR SPLIT. TAKE W/ NSAID omeprazole 2020-06 Yes [id number] TAKE 1 UT (PriLOSEC) 1-18 9109 CAPSULE [facility] [address] 00:00: MOUTH 1 capsule 00 TIME EACH DAY. DO NOT CRUSH, CHEW, OR SPLIT. TAKE W/ NSAID aspirin 325 2020-06- No [id number] 325mg QD Take 1 UT MG EC 07-03 9108 tablet Health tablet 00:00: 05:59 (325 mg 00 :00 total) by mouth 1 (one) time each day. aspirin 325 2020-06- No [id number] 325mg QD Take 1 UT MG EC 07-03 9108 tablet Health tablet 00:00: 05:59 (325 mg 00 :00 total) by mouth 1 (one) time each day. naloxone 2020-06- No [id number] .4mg Administer UT (Narcan) 2 07-03 9109 0.4 mL Health MG/2ML 00:00: 05:59 (0.4 mg injection 00 :00 total) into affected nostril(s) if needed for opioid reversal. May repeat every 2-3 minutes as needed until medical assistance available. aspirin 325 2020-06- No [id number] 325mg QD Take 1 UT MG EC 07-03 9108 tablet Health tablet 00:00: 05:59 (325 mg 00 :00 total) by mouth 1 (one) time each day. naloxone 2020-06- No [id number] .4mg Administer UT (Narcan) 2 07-03 9109 0.4 mL Health MG/2ML 00:00: 05:59 (0.4 mg injection 00 :00 total) into affected nostril(s) if needed for opioid reversal. May repeat every 2-3 minutes as needed until medical assistance available. aspirin 325 2020-06- No [id number] 325mg QD Take 1 UT MG EC 07-03 9108 tablet Health tablet 00:00: 05:59 (325 mg 00 :00 total) by mouth 1 (one) time each day. naloxone 2020-06- No [id number] .4mg Administer UT (Narcan) 2 07-03 9109 0.4 mL Health MG/2ML 00:00: 05:59 (0.4 mg injection 00 :00 total) into affected nostril(s) if needed for opioid reversal. May repeat every 2-3 minutes as needed until medical assistance available. HYDROcodone 2020-06- No [id number] 1{tbl} Take 1 UT -acetaminop 07-03 9109 tablet by Miko riddle ([place]) 00:00: 05:59 mouth 10-325 MG 00 :00 every 4 tablet (four) hours if needed for severe pain (Pain). HYDROcodone 2020-06- No [id number] 1{tbl} Take 1 UT -acetaminop -07-03 9109 tablet by He alth hen ([place]) 00:00: 05:59 mouth 10-325 MG 00 :00 every 4 tablet (four) hours if needed for severe pain (Pain). HYDROcodone 2020-06- No [id number] 1{tbl} Take 1 UT -acetaminop -07-03 9109 tablet by He alth hen ([place]) 00:00: 05:59 mouth 10-325 MG 00 :00 every 4 tablet (four) hours if needed for severe pain (Pain). ondansetron 2020-06- No [id number] 4mg Take 1 UT ODT (Zofran 07-03 9108 tablet (4 He alth ODT) 4 MG 00:00: 05:59 mg total) disintegrat 00 :00 by mouth ing tablet every 8 (eight) hours if needed for nausea or vomiting for up to 7 days. sulfamethox 2020-06- No [id number] 1{tbl} Q.5D Take 1 UT azole-trime 07-03 9108 tablet by He alth thoprim 00:00: 05:59 mouth 2 (Bactrim 00 :00 (two) DS) 800-160 times a MG tablet day for 7 days. ondansetron 2020-06- No [id number] 4mg Take 1 UT ODT (Zofran 07-03 9108 tablet (4 He alth ODT) 4 MG 00:00: 05:59 mg total) disintegrat 00 :00 by mouth ing tablet every 8 (eight) hours if needed for nausea or vomiting for up to 7 days. sulfamethox 2020-06- No [id number] 1{tbl} Q.5D Take 1 UT azole-trime 07-03 9108 tablet by He alth thoprim 00:00: 05:59 mouth 2 (Bactrim 00 :00 (two) DS) 800-160 times a MG tablet day for 7 days. ondansetron 2020-06- No [id number] 4mg Take 1 UT ODT (Zofran 07-03 9108 tablet (4 He alth ODT) 4 MG 00:00: 05:59 mg total) disintegrat 00 :00 by mouth ing tablet every 8 (eight) hours if needed for nausea or vomiting for up to 7 days. sulfamethox 2020-06- No [id number] 1{tbl} Q.5D Take 1 UT azole-trime 07-03 9108 tablet by He alth thoprim 00:00: 05:59 mouth 2 (Bactrim 00 :00 (two) DS) 800-160 times a MG tablet day for 7 days. meloxicam 2020-06- No [id number] 7.5mg Take 1 UT (Mobic) 7.5 06-22 9109 tablet Healt h MG tablet 00:00: 05:59 (7.5 mg 00 :00 total) by mouth 1 (one) time each day if needed (pain). meloxicam 2020-06- No [id number] 7.5mg Take 1 UT (Mobic) 7.5 06-22 9109 tablet Healt h MG tablet 00:00: 05:59 (7.5 mg 00 :00 total) by mouth 1 (one) time each day if needed (pain). meloxicam 2020-06- No [id number] 7.5mg Take 1 UT (Mobic) 7.5 06-22 9109 tablet Healt h MG tablet 00:00: 05:59 (7.5 mg 00 :00 total) by mouth 1 (one) time each day if needed (pain). meloxicam 2020-06- No [id number] 7.5mg Take 1 UT (Mobic) 7.5 06-22 9109 tablet Healt h MG tablet 00:00: 05:59 (7.5 mg 00 :00 total) by mouth 1 (one) time each day if needed (pain). meloxicam 2020-06- No [id number] 7.5mg Take 1 UT (Mobic) 7.5 06-22 9109 tablet Healt h MG tablet 00:00: 05:59 (7.5 mg 00 :00 total) by mouth 1 (one) time each day if needed (pain). meloxicam 2020-06- No [id number] 7.5mg Take 1 UT (Mobic) 7.5 06-22 9109 tablet Healt h MG tablet 00:00: 05:59 (7.5 mg 00 :00 total) by mouth 1 (one) time each day if needed (pain). meloxicam 2020-06- No [id number] 7.5mg Take 1 UT (Mobic) 7.5 06-22 9109 tablet Healt h MG tablet 00:00: 05:59 (7.5 mg 00 :00 total) by mouth 1 (one) time each day if needed (pain). methylPREDN 2020-06- No [id number] 4mg Take 1 UT ISolone 004-15 9108 tablet (4 Health (Medrol 00:00: 04:59 mg total) Dospak) 4 00 :00 by mouth 1 MG tablets (one) time for 1 dose. Use as directed by package instructio ns ACYclovi 2020-06 Yes valacyclov UT r (Valtrex) 0-27 ir 1 gram [facility] 1 g tablet 15:20: tablet 10 TAKE 1 TABLET BY MOUTH EVERY DAY zoster 2020-06 Yes Shingrix UT vaccine-rec 0-27 (PF) 50 Healt h ombinant 15:20: mcg/0.5 mL adjuvanted 10 intramuscu (Shingrix) lar 50 suspension MCG/0.5ML , kit TO vaccine BE ADMINISTER ED BY PHARMACIST FOR IMMUNIZATI ON valACYclovi 2020-06 Yes valacyclov UT r (Valtrex) 0-27 ir 1 gram [facility] 1 g tablet 15:20: tablet 10 TAKE 1 TABLET BY MOUTH EVERY DAY zoster 2020-06 Yes Shingrix UT vaccine-rec 0-27 (PF) 50 Healt h ombinant 15:20: mcg/0.5 mL adjuvanted 10 intramuscu (Shingrix) lar 50 suspension MCG/0.5ML , kit TO vaccine BE ADMINISTER ED BY PHARMACIST FOR IMMUNIZATI ON valACYclovi 2020-06 Yes valacyclov UT r (Valtrex) 0-27 ir 1 gram [facility] 1 g tablet 15:20: tablet 10 TAKE 1 TABLET BY MOUTH EVERY DAY zoster 2020-06 Yes Shingrix UT vaccine-rec 0-27 (PF) 50 Healt h ombinant 15:20: mcg/0.5 mL adjuvanted 10 intramuscu (Shingrix) lar 50 suspension MCG/0.5ML , kit TO vaccine BE ADMINISTER ED BY PHARMACIST FOR IMMUNIZATI ON ACYcl2020-06 Yes valacyclov UT r (Valtrex) 0-27 ir 1 gram [facility] 1 g tablet 15:20: tablet 10 TAKE 1 TABLET BY MOUTH EVERY DAY zoster 2020-06 Yes Shingrix UT vaccine-rec 0 (PF) 50 Healt h ombinant 15:20: mcg/0.5 mL adjuvanted 10 intramuscu (Shingrix) lar 50 suspension MCG/0.5ML , kit TO vaccine BE ADMINISTER ED BY PHARMACIST FOR IMMUNIZATI ON 2020-06 Yes valacyclov UT r (Valtrex) 0-27 ir 1 gram [facility]a [facility] 1 g tablet 15:20: tablet 10 TAKE 1 TABLET BY MOUTH EVERY DAY zoster 2020-06 Yes Shingrix UT vaccine-rec 0 (PF) 50 Healt h ombinant 15:20: mcg/0.5 mL adjuvanted 10 intramuscu (Shingrix) lar 50 suspension MCG/0.5ML , kit TO vaccine BE ADMINISTER ED BY PHARMACIST FOR IMMUNIZATI ON 2020-06 Yes valacyclov UT r (Valtrex) 0-27 ir 1 gram [facility] 1 g tablet 15:20: tablet 10 TAKE 1 TABLET BY MOUTH EVERY DAY zoster 2020-06 Yes Shingrix UT vaccine-rec 0 (PF) 50 Healt h ombinant 15:20: mcg/0.5 mL adjuvanted 10 intramuscu (Shingrix) lar 50 suspension MCG/0.5ML , kit TO vaccine BE ADMINISTER ED BY PHARMACIST FOR IMMUNIZATI ON ACYcl2020-06 Yes valacyclov UT r (Valtrex) 0-27 ir 1 gram [facility]a [facility] 1 g tablet 15:20: tablet 10 TAKE 1 TABLET BY MOUTH EVERY DAY zoster 2020-06 Yes Shingrix UT vaccine-rec 027 (PF) 50 Healt h ombinant 15:20: mcg/0.5 mL adjuvanted 10 intramuscu (Shingrix) lar 50 suspension MCG/0.5ML , kit TO vaccine BE ADMINISTER ED BY PHARMACIST FOR IMMUNIZATI ON valACYclovi 2020-06 Yes valacyclov UT r (Valtrex) 0-27 ir 1 gram [facility] 1 g tablet 15:20: tablet 10 TAKE 1 TABLET BY MOUTH EVERY DAY zoster 2020-06 Yes Shingrix UT vaccine-rec 0-27 (PF) 50 Healt h ombinant 15:20: mcg/0.5 mL adjuvanted 10 intramuscu (Shingrix) lar 50 suspension MCG/0.5ML , kit TO vaccine BE ADMINISTER ED BY PHARMACIST FOR IMMUNIZATI ON valACYclovi 2020-06 Yes valacyclov UT r (Valtrex) 0-27 ir 1 gram [facility] 1 g tablet 15:20: tablet 10 TAKE 1 TABLET BY MOUTH EVERY DAY zoster 2020-06 Yes Shingrix UT vaccine-rec 027 (PF) 50 Healt h ombinant 15:20: mcg/0.5 mL adjuvanted 10 intramuscu (Shingrix) lar 50 suspension MCG/0.5ML , kit TO vaccine BE ADMINISTER ED BY PHARMACIST FOR IMMUNIZATI ON valACYclovi 2020-06 Yes valacyclov UT r (Valtrex) 0-27 ir 1 gram [facility] 1 g tablet 15:20: tablet 10 TAKE 1 TABLET BY MOUTH EVERY DAY zoster 2020-06 Yes Shingrix UT vaccine-rec 027 (PF) 50 Healt h ombinant 15:20: mcg/0.5 mL adjuvanted 10 intramuscu (Shingrix) lar 50 suspension MCG/0.5ML , kit TO vaccine BE ADMINISTER ED BY PHARMACIST FOR IMMUNIZATI ON valACYclovi 2020-06 Yes valacyclov UT r (Valtrex) 0-27 ir 1 gram [facility]a [facility] 1 g tablet 15:20: tablet 10 TAKE 1 TABLET BY MOUTH EVERY DAY zoster 2020-06 Yes Shingrix UT vaccine-rec 027 (PF) 50 Healt h ombinant 15:20: mcg/0.5 mL adjuvanted 10 intramuscu (Shingrix) lar 50 suspension MCG/0.5ML , kit TO vaccine BE ADMINISTER ED BY PHARMACIST FOR IMMUNIZATI ON valACYclovi 2020-06 Yes valacyclov UT r (Valtrex) 0-27 ir 1 gram [facility]a [facility] 1 g tablet 15:20: tablet 10 TAKE 1 TABLET BY MOUTH EVERY DAY zoster 2020-06 Yes Shingrix UT vaccine-rec 0-27 (PF) 50 Healt h ombinant 15:20: mcg/0.5 mL adjuvanted 10 intramuscu (Shingrix) lar 50 suspension MCG/0.5ML , kit TO vaccine BE ADMINISTER ED BY PHARMACIST FOR IMMUNIZATI ON estradiol 2020-06 Yes estradiol UT (Estrace) 1 0-27 1 mg Health MG tablet 15:20: tablet 09 TAKE 1 AND 1/2 TABLET BY MOUTH EVERY DAY estradiol 2020-06 Yes estradiol UT (Estrace) 1 0-27 1 mg Health MG tablet 15:20: tablet 09 TAKE 1 AND 1/2 TABLET BY MOUTH EVERY DAY estradiol 2020-06 Yes estradiol UT (Estrace) 1 0-27 1 mg Health MG tablet 15:20: tablet 09 TAKE 1 AND 1/2 TABLET BY MOUTH EVERY DAY estradiol 2020-06 Yes estradiol UT (Estrace) 1 0-27 1 mg Health MG tablet 15:20: tablet 09 TAKE 1 AND 1/2 TABLET BY MOUTH EVERY DAY estradiol 2020-06 Yes estradiol UT (Estrace) 1 0-27 1 mg Health MG tablet 15:20: tablet 09 TAKE 1 AND 1/2 TABLET BY MOUTH EVERY DAY estradiol 2020-06 Yes estradiol UT (Estrace) 1 0-27 1 mg Health MG tablet 15:20: tablet 09 TAKE 1 AND 1/2 TABLET BY MOUTH EVERY DAY estradiol 2020-06 Yes estradiol UT (Estrace) 1 0-27 1 mg Health MG tablet 15:20: tablet 09 TAKE 1 AND 1/2 TABLET BY MOUTH EVERY DAY estradiol 2020-06 Yes estradiol UT (Estrace) 1 0-27 1 mg Health MG tablet 15:20: tablet 09 TAKE 1 AND 1/2 TABLET BY MOUTH EVERY DAY estradiol 2020-06 Yes estradiol UT (Estrace) 1 0-27 1 mg Health MG tablet 15:20: tablet 09 TAKE 1 AND 1/2 TABLET BY MOUTH EVERY DAY estradiol 2020-06 Yes estradiol UT (Estrace) 1 0-27 1 mg Health MG tablet 15:20: tablet 09 TAKE 1 AND 1/2 TABLET BY MOUTH EVERY DAY estradiol 2020-06 Yes estradiol UT (Estrace) 1 0-27 1 mg Health MG tablet 15:20: tablet 09 TAKE 1 AND 1/2 TABLET BY MOUTH EVERY DAY estradiol 2020-06 Yes estradiol UT (Estrace) 1 0-27 1 mg Health MG tablet 15:20: tablet 09 TAKE 1 AND 1/2 TABLET BY MOUTH EVERY DAY clotrimazol 2020-06 Yes clotrimazo UT e-betametha 0-27 le-betamet He alth sone 15:20: hasone 1 (Lotrisone) 08 %-0.05 % cream topical cream APPLY TO AFFECTED AREA TWICE A DAY clotrimazol 2020-06 Yes clotrimazo UT e-betametha 0-27 le-betamet He alth sone 15:20: hasone 1 (Lotrisone) 08 %-0.05 % cream topical cream APPLY TO AFFECTED AREA TWICE A DAY clotrimazol 2020-06 Yes clotrimazo UT e-betametha 0-27 le-betamet He alth sone 15:20: hasone 1 (Lotrisone) 08 %-0.05 % cream topical cream APPLY TO AFFECTED AREA TWICE A DAY clotrimazol 2020-06 Yes clotrimazo UT e-betametha 0-27 le-betamet He alth sone 15:20: hasone 1 (Lotrisone) 08 %-0.05 % cream topical cream APPLY TO AFFECTED AREA TWICE A DAY clotrimazol 2020-06 Yes clotrimazo UT e-betametha 0-27 le-betamet He alth sone 15:20: hasone 1 (Lotrisone) 08 %-0.05 % cream topical cream APPLY TO AFFECTED AREA TWICE A DAY clotrimazol 2020-06 Yes clotrimazo UT e-betametha 0-27 le-betamet He alth sone 15:20: hasone 1 (Lotrisone) 08 %-0.05 % cream topical cream APPLY TO AFFECTED AREA TWICE A DAY clotrimazol 2020-06 Yes clotrimazo UT e-betametha 0-27 le-betamet He alth sone 15:20: hasone 1 (Lotrisone) 08 %-0.05 % cream topical cream APPLY TO AFFECTED AREA TWICE A DAY clotrimazol 2020-06 Yes clotrimazo UT e-betametha 0-27 le-betamet He alth sone 15:20: hasone 1 (Lotrisone) 08 %-0.05 % cream topical cream APPLY TO AFFECTED AREA TWICE A DAY clotrimazol 2020-06 Yes clotrimazo UT e-betametha 0-27 le-betamet He alth sone 15:20: hasone 1 (Lotrisone) 08 %-0.05 % cream topical cream APPLY TO AFFECTED AREA TWICE A DAY clotrimazol 2020-06 Yes clotrimazo UT e-betametha 0-27 le-betamet He alth sone 15:20: hasone 1 (Lotrisone) 08 %-0.05 % cream topical cream APPLY TO AFFECTED AREA TWICE A DAY clotrimazol 2020-06 Yes clotrimazo UT e-betametha 0-27 le-betamet He alth sone 15:20: hasone 1 (Lotrisone) 08 %-0.05 % cream topical cream APPLY TO AFFECTED AREA TWICE A DAY clotrimazol 2020-06 Yes clotrimazo UT e-betametha 0-27 le-betamet He alth sone 15:20: hasone 1 (Lotrisone) 08 %-0.05 % cream topical cream APPLY TO AFFECTED AREA TWICE A DAY omeprazole 2020-06- No [id number] 20mg QD Take 1 UT OTC 005-14 9109 tablet (20 Health (PriLOSEC 00:00: 05:59 mg total) OTC) 20 MG 00 :00 by mouth 1 EC tablet (one) time each day. Do not crush, chew, or split. Take w/ NSAID Diclofenac 2020-06- No [id number] Q.[id number] Apply UT Sodium 05-14 9109 [id number] topically H ealth (Voltaren) 00:00: 05:59 3D 3 (three) 1 % 00 :00 times a external day if gel needed (pain). Apply 4 grams to affected area not to exceed 16 grams every day omeprazole 2020-06- No [id number] 20mg QD Take 1 UT OTC 0-05-14 9109 tablet (20 Health (PriLOSEC 00:00: 05:59 mg total) OTC) 20 MG 00 :00 by mouth 1 EC tablet (one) time each day. Do not crush, chew, or split. Take w/ NSAID Diclofenac 2020-06- No [id number] Q.[id number] Apply UT Sodium 0-27 11- 9109 [id number] topically H ealth (Voltaren) 00:00: 05:59 3D 3 (three) 1 % 00 :00 times a external day if gel needed (pain). Apply 4 grams to affected area not to exceed 16 grams every day omeprazole 2020-06- No [id number] 20mg QD Take 1 UT OTC 0-14 05- 9109 tablet (20 Health (PriLOSEC 00:00: 05:59 mg total) OTC) 20 MG 00 :00 by mouth 1 EC tablet (one) time each day. Do not crush, chew, or split. Take w/ NSAID Diclofenac 2020-06- No [id number] Q.[id number] Apply UT Sodium 0-27 11- 9109 [id number] topically H ealth (Voltaren) 00:00: 05:59 3D 3 (three) 1 % 00 :00 times a external day if gel needed (pain). Apply 4 grams to affected area not to exceed 16 grams every day omeprazole 2020-06 No [id number] 20mg QD Take 1 UT OTC 005-14 9109 tablet (20 Health (PriLOSEC 00:00: 05:59 mg total) OTC) 20 MG 00 :00 by mouth 1 EC tablet (one) time each day. Do not crush, chew, or split. Take w/ NSAID Diclofenac 2020-06- No [id number] Q.[id number] Apply UT Sodium 0-27 - 9109 [id number] topically H ealth (Voltaren) 00:00: 05:59 3D 3 (three) 1 % 00 :00 times a external day if gel needed (pain). Apply 4 grams to affected area not to exceed 16 grams every day omeprazole 2020-06- No [id number] 20mg QD Take 1 UT OTC 0-27 11- 9109 tablet (20 Health (PriLOSEC 00:00: 05:59 mg total) OTC) 20 MG 00 :00 by mouth 1 EC tablet (one) time each day. Do not crush, chew, or split. Take w/ NSAID Diclofenac 2020-06- No [id number] Q.[id number] Apply UT Sodium 0-27 11-27 9109 [id number] topically H ealth (Voltaren) 00:00: 05:59 3D 3 (three) 1 % 00 :00 times a external day if gel needed (pain). Apply 4 grams to affected area not to exceed 16 grams every day omeprazole 2020-06- No [id number] 20mg QD Take 1 UT OTC 0-05-14 9109 tablet (20 Health (PriLOSEC 00:00: 05:59 mg total) OTC) 20 MG 00 :00 by mouth 1 EC tablet (one) time each day. Do not crush, chew, or split. Take w/ NSAID Diclofenac 2020-06- No [id number] Q.[id number] Apply UT Sodium 0-27 11-27 9109 [id number] topically H ealth (Voltaren) 00:00: 05:59 3D 3 (three) 1 % 00 :00 times a external day if gel needed (pain). Apply 4 grams to affected area not to exceed 16 grams every day Diclofenac 2020-06- No [id number] Q.[id number] Apply UT Sodium 0-27 11-27 9109 [id number] topically H ealth (Voltaren) 00:00: 05:59 3D 3 (three) 1 % 00 :00 times a external day if gel needed (pain). Apply 4 grams to affected area not to exceed 16 grams every day Diclofenac 2020-06- No [id number] Q.[id number] Apply UT Sodium 0-27 11-27 9109 [id number] topically H ealth (Voltaren) 00:00: 05:59 3D 3 (three) 1 % 00 :00 times a external day if gel needed (pain). Apply 4 grams to affected area not to exceed 16 grams every day omeprazole 2020-06- No [id number] 20mg QD Take 1 UT OTC 0-14 05- 9109 tablet (20 Health (PriLOSEC 00:00: 05:59 mg total) OTC) 20 MG 00 :00 by mouth 1 EC tablet (one) time each day. Do not crush, chew, or split. Take w/ NSAID Diclofenac 2020-06- No [id number] Q.[id number] Apply UT Sodium 0-14 05- 9109 [id number] topically H ealth (Voltaren) 00:00: 05:59 3D 3 (three) 1 % 00 :00 times a external day if gel needed (pain). Apply 4 grams to affected area not to exceed 16 grams every day meloxicam 2020-06- No [id number] 7.5mg Take 1 UT (Mobic) 7.5 005-14 9109 tablet Healt h MG tablet 00:00: 05:59 (7.5 mg 00 :00 total) by mouth 1 (one) time each day if needed (pain). omeprazole 2020-06- No [id number] 20mg QD Take 1 UT OTC 005-14 9109 tablet (20 Health (PriLOSEC 00:00: 05:59 mg total) OTC) 20 MG 00 :00 by mouth 1 EC tablet (one) time each day. Do not crush, chew, or split. Take w/ NSAID Diclofenac 2020-06- No [id number] Q.[id number] Apply UT Sodium 0- 9109 [id number] topically H ealth (Voltaren) 00:00: 05:59 3D 3 (three) 1 % 00 :00 times a external day if gel needed (pain). Apply 4 grams to affected area not to exceed 16 grams every day meloxicam 2020-06- No [id number] 7.5mg Take 1 UT (Mobic) 7.5 005-14 9109 tablet Healt h MG tablet 00:00: 05:59 (7.5 mg 00 :00 total) by mouth 1 (one) time each day if needed (pain). omeprazole 2020-06- No [id number] 20mg QD Take 1 UT OTC 005-14 9109 tablet (20 Health (PriLOSEC 00:00: 05:59 mg total) OTC) 20 MG 00 :00 by mouth 1 EC tablet (one) time each day. Do not crush, chew, or split. Take w/ NSAID Diclofenac 2020-06- No [id number] Q.[id number] Apply UT Sodium 05-14 9109 [id number] topically H ealth (Voltaren) 00:00: 05:59 3D 3 (three) 1 % 00 :00 times a external day if gel needed (pain). Apply 4 grams to affected area not to exceed 16 grams every day omeprazole 2020-06- No [id number] 20mg QD Take 1 UT OTC 05-05 9109 tablet (20 Health (PriLOSEC 00:00: 00:00 mg total) OTC) 20 MG 00 :00 by mouth 1 EC tablet (one) time each day. Do not crush, chew, or split. Take w/ NSAID meloxicam 2020-06- No [id number] 7.5mg Take 1 UT (Mobic) 7.5 04-22 tablet Healt h MG tablet 00:00: 00:00 (7.5 mg 00 :00 total) by mouth 1 (one) time each day if needed (pain). baclofen 2020-06 Yes UT (Lioresal) 0-20 Health 10 MG 00:00: tablet 00 topiramate 2020-06 Yes UT (Topamax) 0-20 Health 25 MG 00:00: tablet 00 baclofen 2020-06 Yes UT (Lioresal) 0-20 Health 10 MG 00:00: tablet 00 topiramate 2020-06 Yes UT (Topamax) 0-20 Health 25 MG 00:00: tablet 00 baclofen 2020-06 Yes UT (Lioresal) 0-20 Health 10 MG 00:00: tablet 00 topiramate 2020-06 Yes UT (Topamax) 0-20 Health 25 MG 00:00: tablet 00 baclofen 2020-06 Yes UT (Lioresal) 0-20 Health 10 MG 00:00: tablet 00 topiramate 2020-06 Yes UT (Topamax) 0-20 Health 25 MG 00:00: tablet 00 baclofen 2020-06 Yes UT (Lioresal) 0-20 Health 10 MG 00:00: tablet 00 baclofen 2020-06 Yes [facility] (L[facility]resal[facility]-20 [facility] 10 MG 00:00: tablet 00 topiramate 2020-06 Yes [facility] (Topamax[facility] 25 MG 00:00: tablet 00 baclofen 2020-06 Yes [facility] (Lioresal) [facility]-20 [facility] 10 MG 00:00: tablet 00 topiramate 2020-06 Yes [facility] (Topamax) [facility] 25 MG 00:00: tablet 00 baclofen 2020-06 Yes [facility] (Lioresal) 0-20 [facility] 10 MG 00:00: tablet 00 topiramate 2020-06 Yes [facility] (Topamax) 0-20 [facility] 25 MG 00:00: tablet 00 baclofen 2020-06 Yes [facility] (Lioresal) 0-20 [facility] 10 MG 00:00: tablet 00 topiramate 2020-06 Yes [facility] (Topamax) 0-20 [facility] 25 MG 00:00: tablet 00 topiramate 2020-06 Yes [facility] (Topamax) 0-20 [facility] 25 MG 00:00: tablet 00 baclofen 2020-06 Yes [facility] (Lioresal) 0-20 [facility] 10 MG 00:00: tablet 00 topiramate 2020-06 Yes [facility] (Topamax) 0-20 [facility] 25 MG 00:00: tablet 00 baclofen 2020-06 Yes [facility] (Lioresal) 0-20 [facility] 10 MG 00:00: tablet 00 topiramate 2020-06 Yes [facility] (Topamax) 0-20 [facility] 25 MG 00:00: tablet 00 baclofen 2020-06 Yes [facility] (Lioresal) 0-20 [facility] 10 MG 00:00: tablet 00 topiramate 2020-06 Yes [facility] (Topamax) 0-20 [facility] 25 MG 00:00: tablet 00 buPROPion 0 Yes [facility] XL 8-24 [facility] (Wellbutrin 00:00: XL) 300 MG 00 24 hr tablet FLUoxetine 0 Yes [facility] (PROzac) 40 8-24 [facility] MG capsule 00:00: 00 buPROPion 2020-0 Yes [facility] XL 8-[facility] (Wellbutrin 00:00: XL) 300 MG 00 24 hr tablet FLUoxetine 0 Yes [facility] (PROzac) 40 8-24 [facility] MG capsule 00:00: 00 buPROPion 2020-0 Yes [facility] XL 8-24 [facility] (Wellbutrin 00:00: XL) 300 MG 00 24 hr tablet FLUoxetine 2020-0 Yes [facility] (PROzac) 40 8-24 [facility] MG capsule 00:00: 00 buPROPion 2020-0 Yes [facility] XL 8-24 [facility] (Wellbutrin 00:00: XL) 300 MG 00 24 hr tablet FLUoxetine 2020-0 Yes [facility] (PROzac) 40 8-24 [facility] MG capsule 00:00: 00 buPROPion 2020-0 Yes [facility] XL 8-24 [facility] (Wellbutrin 00:00: XL) 300 MG 00 24 hr tablet FLUoxetine 2020-0 Yes [facility] (PROzac) 40 8-24 [facility] MG capsule 00:00: 00 buPROPion 2020-0 Yes [facility] XL 8-24 [facility] (Wellbutrin 00:00: XL) 300 MG 00 24 hr tablet buPROPion 2020-0 Yes [facility] XL 8-24 [facility] (Wellbutrin 00:00: XL) 300 MG 00 24 hr tablet FLUoxetine 2020-0 Yes [facility] (PROzac) 40 8-24 [facility] MG capsule 00:00: 00 buPROPion 2020-0 Yes [facility] XL 8-24 [facility] (Wellbutrin 00:00: XL) 300 MG 00 24 hr tablet FLUoxetine 2020-0 Yes [facility] (PROzac) 40 8-24 [facility] MG capsule 00:00: 00 FLUoxetine 2020-0 Yes [facility] (PROzac) 40 8-24 [facility] MG capsule 00:00: 00 buPROPion 2020-0 Yes [facility] XL 8-24 [facility] (Wellbutrin 00:00: XL) 300 MG 00 24 hr tablet FLUoxetine 2020-0 Yes [facility] (PROzac) 40 8-24 [facility] MG capsule 00:00: 00 buPROPion 2020-0 Yes [facility] XL 8-24 [facility] (Wellbutrin 00:00: XL) 300 MG 00 24 hr tablet FLUoxetine 2020-0 Yes [facility] (PROzac) 40 8-24 [facility] MG capsule 00:00: 00 buPROPion 2020-0 Yes [facility] XL 8-24 [facility] (Wellbutrin 00:00: XL) 300 MG 00 24 hr tablet FLUoxetine 2020-0 Yes [facility] (PROzac) 40 8-24 [facility] MG capsule 00:00: 00 buPROPion 2020-0 Yes [facility] XL 8-24 [facility] (Wellbutrin 00:00: XL) 300 MG 00 24 hr tablet FLUoxetine 2021-0 Yes [facility] (PROzac) 40 8-24 [facility] MG capsule 00:00: 00 chlorhexidi 2020-1 Yes [facility] ne 2-29 [facility] (Peridex) 00:00: 0.12 % 00 solution chlorhexidi 2020-1 Yes [facility] ne 2-29 [facility] (Peridex) 00:00: 0.12 % 00 solution chlorhexidi 2020-1 Yes [facility] ne 2-29 [facility] (Peridex) 00:00: 0.12 % 00 solution chlorhexidi 2020-1 Yes [facility] ne 2-29 [facility] (Peridex) 00:00: 0.12 % 00 solution chlorhexidi 2020-1 Yes [facility] ne 2-29 [facility] (Peridex) 00:00: 0.12 % 00 solution chlorhexidi 2020-1 Yes [facility] ne 2-29 [facility] (Peridex) 00:00: 0.12 % 00 solution chlorhexidi 2020-1 Yes [facility] ne 2-29 [facility] (Peridex) 00:00: 0.12 % 00 solution chlorhexidi 2020-1 Yes [facility] ne 2-29 [facility] (Peridex) 00:00: 0.12 % 00 solution chlorhexidi 2020-1 Yes [facility] ne 2-29 [facility] (Peridex) 00:00: 0.12 % 00 solution chlorhexidi 2020-1 Yes [facility] ne 2-29 [facility] (Peridex) 00:00: 0.12 % 00 solution chlorhexidi 2020-1 Yes [facility] ne 2-29 [facility] (Peridex) 00:00: 0.12 % 00 solution chlorhexidi 2020-1 Yes [facility] ne 2-29 [facility] (Peridex) 00:00: 0.12 % 00 solution Meloxicam Meloxicam 2019-06 Yes RANJIT TAKE 1 [facility] 15 MG Oral 15 MG Oral 1-12 CELIO TABLET BY ity of Tablet Tablet 00:00: M.D. MOUTH [place] 00 EVERY DAY Physici NEEDED ans Tylenol 8 Tylenol 8 Yes RANJIT TAKE 1 [facility] Hour Hour 9-28 CELIO TABLET BY ity of Arthritis Arthritis 00:00: M.D. MOUTH [place] Pain 650 MG Pain 650 MG 00 EVERY 4-6 Physici Oral Tablet Oral Tablet HOURS ans Extended Extended NEEDED FOR Release Release PAIN traMADol traMADol Yes RANJIT TAKE 1 [facility] [place] HCl - 50 MG HCl - 50 MG 9-28 CELIO TABLET ity of Oral Tablet Oral Tablet 00:00: M.D. EVERY 4 TO [place] 00 6 HOURS Physici NEEDED. ans Cyclobenzap Cyclobenzap 2020-0 Yes RANJIT Q0.3333D TAKE 1 [facility] rine HCl - rine HCl - 9- CELIO TABLET 3 ity of 5 MG Oral 5 MG Oral 00:00: M.[place]. TIMES [place] Tablet Tablet 00 DAILY Physici NEEDED. ans diclofenac 2020-0 Yes 1{tbl} Take 1 [facility] (Voltaren) 9-15 tablet by [facility] 75 MG EC 00:00: mouth 2 tablet 00 (two) times a day with meals. diclofenac 2020-0 Yes 1{tbl} Take 1 [facility] (Voltaren) 9-15 tablet by [facility] 75 MG EC 00:00: mouth 2 tablet 00 (two) times a day with meals. diclofenac 2020-0 Yes 1{tbl} Take 1 [facility] (Voltaren) 9-15 tablet by [facility] 75 MG EC 00:00: mouth 2 tablet 00 (two) times a day with meals. diclofenac 2020-0 Yes 1{tbl} Take 1 [facility] (Voltaren) 9-15 tablet by [facility] 75 MG EC 00:00: mouth 2 tablet 00 (two) times a day with meals. diclofenac 2020-0 Yes 1{tbl} Take 1 [facility] (Voltaren) 9-15 tablet by [facility] 75 MG EC 00:00: mouth 2 tablet 00 (two) times a day with meals. diclofenac 2020-0 Yes 1{tbl} Take 1 [facility] (Voltaren) 9-15 tablet by [facility] 75 MG EC 00:00: mouth 2 tablet 00 (two) times a day with meals. diclofenac 2020-0 Yes 1{tbl} Take 1 [facility] (Voltaren) 9-15 tablet by [facility] 75 MG EC 00:00: mouth 2 tablet 00 (two) times a day with meals. diclofenac 2020-0 Yes 1{tbl} Take 1 [facility] (Voltaren) 9-15 tablet by [facility] 75 MG EC 00:00: mouth 2 tablet 00 (two) times a day with meals. diclofenac 2020-0 Yes 1{tbl} Take 1 [facility] (Voltaren) 9-15 tablet by [facility] 75 MG EC 00:00: mouth 2 tablet 00 (two) times a day with meals. diclofenac 2020-0 Yes 1{tbl} Take 1 [facility] (Voltaren) 9-15 tablet by [facility] MG EC 00:00: mouth 2 tablet 00 (two) times a day with meals. diclofenac 2020-0 Yes 1{tbl} Take 1 [facility] (Voltaren) 9-15 tablet by [facility] 75 MG EC 00:00: mouth 2 tablet 00 (two) times a day with meals. diclofenac 2020-0 Yes 1{tbl} Take 1 [facility] (Voltaren) 9-15 tablet by [facility] 75 MG EC 00:00: mouth 2 tablet 00 (two) times a day with meals. DICLOFENAC 2020-0 Yes [id number] TAKE 1 [facility] 75 mg EC 9-15 TABLET BY ity of tablet 00:00: MOUTH [place] 00 TWICE A Medical DAY WITH A Branch MEAL MELOXICAM 2020-0 Yes [id number] TAKE 1 [facility] 15 mg 8-20 9102 TABLET BY ity of tablet 00:00: MOUTH [place] 00 EVERY DAY Medical Branch MELOXICAM 2020-0 Yes [id number] TAKE 1 [facility] 15 mg 8-20 9102 TABLET BY ity of tablet 00:00: MOUTH [place] 00 EVERY DAY Medical Branch methylPREDN 2020-0 Yes [id number] 84mg Take 21 [facility] ISolone 8-20 tablets by ity of (MEDROL, 00:00: mouth [place] JOSEFA,) 4 mg 00 SEE-INSTRU Med ical tablets CTIONS. Branch follow package directions MELOXICAM 2020-0 Yes [id number] TAKE 1 [facility] 15 mg 8-20 9102 TABLET BY ity of tablet 00:00: MOUTH [place] 00 EVERY DAY Medical Branch methylPREDN 2020-0 Yes [id number] 84mg Take 21 [facility] ISolone 8-20 tablets by ity of (MEDROL, 00:00: mouth [place] JOSEFA,) 4 mg 00 SEE-INSTRU Med ical tablets CTIONS. Branch follow package directions MELOXICAM 2020-0 Yes [id number] TAKE 1 [facility] 15 mg 8-20 9102 TABLET BY ity of tablet 00:00: MOUTH [place] 00 EVERY DAY Medical Branch methylPREDN 2020-0 Yes [id number] 84mg Take 21 [facility] ISolone 8-20 tablets by ity of (MEDROL, 00:00: mouth [place] JOSEFA,) 4 mg 00 SEE-INSTRU Med ical tablets CTIONS. Branch follow package directions MELOXICAM 2020-0 Yes [id number] TAKE 1 [facility] 15 mg 8-20 9102 TABLET BY ity of tablet 00:00: MOUTH [place] 00 EVERY DAY Medical Branch methylPREDN 2020-0 Yes [id number] 84mg Take 21 [facility] ISolone 8-20 tablets by ity of (MEDROL, 00:00: mouth [place] JOSEFA,) 4 mg 00 SEE-INSTRU Med ical tablets CTIONS. Branch follow package directions MELOXICAM 2020-0 Yes [id number] TAKE 1 [facility] 15 mg 8-20 9102 TABLET BY ity of tablet 00:00: MOUTH [place] 00 EVERY DAY Medical Branch methylPREDN 2020-0 Yes [id number] 84mg Take 21 [facility] ISolone 8-20 tablets by ity of (MEDROL, 00:00: mouth [place] JOSEFA,) 4 mg 00 SEE-INSTRU Med ical tablets CTIONS. Branch follow package directions MELOXICAM 2020-0 Yes [id number] TAKE 1 [facility] 15 mg 8-20 9102 TABLET BY ity of tablet 00:00: MOUTH [place] EVERY DAY Medical Branch methylPREDN 2020-0 Yes [id number] 84mg Take 21 [facility] ISolone 8-20 tablets by ity of (MEDROL, 00:00: mouth [place] JOSEFA,) 4 mg 00 SEE-INSTRU Med ical tablets CTIONS. Branch follow package directions MELOXICAM 2020-0 Yes [id number] TAKE 1 [facility] 15 mg 8-20 9102 TABLET BY ity of tablet 00:00: MOUTH [place] EVERY DAY Medical Branch methylPREDN 2020-0 Yes [id number] 84mg Take 21 [facility] ISolone 8-20 tablets by ity of (MEDROL, 00:00: mouth [place] JOSEFA,) 4 mg 00 SEE-INSTRU Med ical tablets CTIONS. Branch follow package directions MELOXICAM 2020-0 Yes [id number] TAKE 1 [facility] 15 mg 8-20 9102 TABLET BY ity of tablet 00:00: MOUTH [place] 00 EVERY DAY Medical Branch methylPREDN 2020-0 Yes [id number] 84mg Take 21 [facility] ISolone 8-20 tablets by ity of (MEDROL, 00:00: mouth [place] JOSEFA,) 4 mg 00 SEE-INSTRU Med ical tablets CTIONS. Branch follow package directions MELOXICAM 2020-0 Yes [id number] TAKE 1 [facility] 15 mg 8-20 9102 TABLET BY ity of tablet 00:00: MOUTH [place] EVERY DAY Medical Branch methylPREDN 2020-0 Yes [id number] 84mg Take 21 [facility] ISolone 8-20 tablets by ity of (MEDROL, 00:00: mouth [place] JOSEFA,) 4 mg 00 SEE-INSTRU Med ical tablets CTIONS. Branch follow package directions diclofenac 2019-0 2020- No [id number] 75mg Take 1 [facility] 75 mg EC 8-20 09-20 tablet by ity o f tablet 00:00: 04:59 mouth 2 [place] 00 :00 (two) Medical times Branch daily with meals for 30 days. diclofenac 2019-0 2020- No [id number] 75mg Take 1 [facility] 75 mg EC 8-20 09-20 tablet by ity o f tablet 00:00: 04:59 mouth 2 [place] 00 :00 (two) Medical times Branch daily with meals for 30 days. diclofenac 2019-0 2020- No [id number] 75mg Take 1 [facility] 75 mg EC 8-20 09-20 tablet by ity o f tablet 00:00: 04:59 mouth 2 [place] 00 :00 (two) Medical times Branch daily with meals for 30 days. diclofenac 2019-0 2020- No [id number] 75mg Take 1 [facility] 75 mg EC 8-20 09-20 tablet by ity o f tablet 00:00: 04:59 mouth 2 [place] 00 :00 (two) Medical times Branch daily with meals for 30 days. diclofenac 2019-0 2020- No [id number] 75mg Take 1 [facility] 75 mg EC 8-20 09-20 tablet by ity o f tablet 00:00: 04:59 mouth 2 [place] 00 :00 (two) Medical times Branch daily with meals for 30 days. diclofenac 2019-0 2020- No [id number] 75mg Take 1 [facility] 75 mg EC 8-20 09-20 tablet by ity o f tablet 00:00: 04:59 mouth 2 [place] 00 :00 (two) Medical times Branch daily with meals for 30 days. diclofenac 2020-0 2020- No [id number] 75mg Take 1 [facility] 75 mg EC 8-20 09-20 tablet by ity o f tablet 00:00: 04:59 mouth 2 [place] 00 :00 (two) Medical times Branch daily with meals for 30 days. diclofenac 2020-0 2020- No [id number] 75mg Take 1 [facility] 75 mg EC 8-20 09-20 tablet by ity o f tablet 00:00: 04:59 mouth 2 [place] 00 :00 (two) Medical [facility] daily with meals for 30 days. diclofenac 2019-0 2020- No [id number] 75mg Take 1 [facility] 75 mg EC 8-20 09-15 tablet by ity o f tablet 00:00: 00:00 mouth 2 [place] 00 :00 (two) Medical [facility] daily with meals for 30 days. diazePAM 2019-0 2020- No [id number] 10mg Take 1 U nivers (VALIUM) 10 8-20 08-21 tablet by it y of mg tablet 00:00: 04:59 mouth once [place] 00 :00 now for 1 Medical dose. Take Branch one tablet by mouth 30 minutes prior to procedure may repeat once meloxicam 2019-0 Yes 15mg Take 1 Univer s (MOBIC) 15 8-10 tablet by ity of mg tablet 00:00: mouth [place] 00 daily. [facility] meloxicam 2019-0 2020- No 15mg Take 1 Unive rs (MOBIC) 15 8-10 08-20 tablet by ity of mg tablet 00:00: 00:00 mouth [place] 00 :00 daily. [facility] meloxicam 2019-0 2020- No 15mg Take 1 Unive rs (MOBIC) 15 8-10 08-20 tablet by ity of mg tablet 00:00: 00:00 mouth [place] 00 :00 daily. [facility] meloxicam 2019-0 2020- No [id number] 15mg Take 1 U nivers 15 mg 7-16 08-16 tablet by ity of tablet 00:00: 04:59 mouth [place] 00 :00 daily for Medical 30 days. Branch meloxicam 2020-0 2020- No [id number] 15mg Take 1 U nivers 15 mg 7-16 08-16 tablet by ity of tablet 00:00: 04:59 mouth [place] 00 :00 daily for Medical 30 days. Branch meloxicam 2020-0 2020- No [id number] 15mg Take 1 U nivers 15 mg 7-16 08-16 tablet by ity of tablet 00:00: 04:59 mouth [place] 00 :00 daily for Medical 30 days. [place] meloxicam 2020-0 2020- No [id number] 15mg Take 1 U nivers 15 mg 7-16 08-16 tablet by ity of tablet 00:00: 04:59 mouth [place] 00 :00 daily for Medical 30 days. Branch meloxicam 2020-0 2020- No [id number] 15mg Take 1 U nivers 15 mg 7-16 08-16 tablet by ity of tablet 00:00: 04:59 mouth [place] 00 :00 daily for Medical 30 days. Branch meloxicam 2020-0 2020- No [id number] 15mg Take 1 U nivers 15 mg 7-16 08-16 tablet by ity of tablet 00:00: 04:59 mouth [place] 00 :00 daily for Medical 30 days. Branch meloxicam 2020-0 2020- No [id number] 15mg Take 1 U nivers 15 mg 7-16 08-16 tablet by ity of tablet 00:00: 04:59 mouth [place] 00 :00 daily for Medical 30 days. [place] meloxicam 2020-0 2020- No [id number] 15mg Take 1 U nivers 15 mg 7-16 08-16 tablet by ity of tablet 00:00: 04:59 mouth [place] 00 :00 daily for Medical 30 days. [place] meloxicam 2020-0 2020- No [id number] 15mg Take 1 U nivers 15 mg 7-16 08-16 tablet by ity of tablet 00:00: 04:59 mouth [place] 00 :00 daily for Medical 30 days. [place] methylPREDN 2020-0 Yes Take by [facility] ISolone 6-18 mouth ity of (MEDROL, 00:00: SEE-INSTRU [place] JOSEFA,) 4 mg 00 CTIONS. Medica l tablets follow Branch package directions methylPREDN 2020-0 Yes Take by [facility] ISolone 6-18 mouth ity of (MEDROL, 00:00: SEE-INSTRU [place] JOSEFA,) 4 mg 00 CTIONS. Medica l tablets follow Branch package directions methylPREDN 2020-0 Yes Take by [facility] ISolone 6-18 mouth ity of (MEDROL, 00:00: SEE-INSTRU [place] JOSEFA,) 4 mg 00 CTIONS. Medica l tablets follow Branch package directions methylPREDN 2020-0 Yes Take by [facility] ISolone 6-18 mouth ity of (MEDROL, 00:00: SEE-INSTRU [place] JOSEFA,) 4 mg 00 CTIONS. Medica l tablets follow Branch package directions methylPREDN 2020-0 Yes Take by [facility] ISolone 6-18 mouth ity of (MEDROL, 00:00: SEE-INSTRU [place]SE[place],) 4 mg 00 CTIONS. Medica l tablets follow Branch package directions methylPREDN 2020-0 Yes Take by [facility] ISolone 6-18 mouth ity of (MEDROL, 00:00: SEE-INSTRU [place] JOSEFA,) 4 mg 00 CTIONS. Medica l tablets follow Branch package directions methylPREDN 2020-0 Yes Take by [facility] [place] ISolone 6-18 mouth ity of (MEDROL, 00:00: SEE-INSTRU [place] JOSEFA,) 4 mg 00 CTIONS. Medica l tablets follow Branch package directions methylPREDN 2020-0 Yes Take by [facility] ISolone 6-18 mouth ity of (MEDROL, 00:00: SEE-INSTRU [place] JOSEFA,) 4 mg 00 CTIONS. Medica l tablets follow Branch package directions methylPREDN 2020-0 Yes Take by [facility] ISolone 6-18 mouth ity of (MEDROL, 00:00: SEE-INSTRU [place] JOSEFA,) 4 mg 00 CTIONS. Medica l tablets follow Branch package directions methylPREDN 2020-0 Yes Take by [facility] ISolone 6-18 mouth ity of (MEDROL, 00:00: SEE-INSTRU [place] JOSEFA,) 4 mg 00 CTIONS. Medica l tablets follow Branch package directions methylPREDN 2020-0 Yes Take by [facility] ISolone 6-18 mouth ity of (MEDROL, 00:00: SEE-INSTRU [place] JOSE[place],) 4 mg 00 CTIONS. Medica l tablets follow Branch package directions methylPREDN 2020-0 Yes Take by [facility] ISolone 6-18 mouth ity of (MEDROL, 00:00: SEE-INSTRU [place]SE[place],) 4 mg 00 CTIONS. Medica l tablets follow Branch package directions methylPREDN 2020-0 Yes Take by [facility] [place] ISolone 6-18 mouth ity of (MEDROL, 00:00: SEE-INSTRU [place]SE[place],) 4 mg 00 CTIONS. Medica l tablets follow Branch package directions methylPREDN 2020-0 Yes Take by [facility] [place] ISolone 6-18 mouth ity of (MEDROL, 00:00: SEE-INSTRU [place],) 4 mg 00 CTIONS. Medica l tablets follow Branch package directions methylPREDN 2020-0 Yes Take by [facility] [place] ISolone 6-18 mouth ity of (MEDROL, 00:00: SEE-INSTRU [place],) 4 mg 00 CTIONS. Medica l tablets follow Branch package directions methylPREDN 2020-0 Yes Take by [facility] [place] ISolone 6-18 mouth ity of (MEDROL, 00:00: SEE-INSTRU [place],) 4 mg 00 CTIONS. Medica l tablets follow Branch package directions methylPREDN 2020-0 Yes Take by [facility] [place] ISolone 6-18 mouth ity of (MEDROL, 00:00: SEE-INSTRU [place],) 4 mg 00 CTIONS. Medica l tablets follow Branch package directions methylPREDN 2020-0 Yes Take by [facility] [place] ISolone 6-18 mouth ity of (MEDROL, 00:00: SEE-INSTRU [place],) 4 mg 00 CTIONS. Medica l tablets follow Branch package directions methylPREDN 2020-0 Yes Take by Un [place] ISolone 6-18 mouth ity of (MEDROL, 00:00: SEE-INSTRU [place],) 4 mg 00 CTIONS. Medica l tablets follow Branch package directions methylPREDN 2020-0 Yes Take by [facility] [place] ISolone 6-18 mouth ity of (MEDROL, 00:00: SEE-INSTRU [place],) 4 mg 00 CTIONS. Medica l tablets follow Branch package directions methylPREDN 2020-0 Yes Take by [facility] [place] ISolone 6-18 mouth ity of (MEDROL, 00:00: SEE-INSTRU [place] JOSEFA,) 4 mg 00 CTIONS. Medica l tablets follow Branch package directions methylPREDN 2020-0 Yes Take by [facility] [place] ISolone 6-18 mouth ity of (MEDROL, 00:00: SEE-INSTRU [place] JOSE[place],) 4 mg 00 CTIONS. Medica l tablets follow Branch package directions medroxyPROG 2020-0 Yes medroxypro [place] [facility] (Pro[facility] 00:00: 10 mg 10 MG 00 tablet tablet TAKE 1 TABLET BY MOUTH EVERY DAY medroxyPROG 2020-0 Yes medroxypro [place] [facility] (Provera) 00:00: 10 mg 10 MG 00 tablet tablet TAKE 1 TABLET BY MOUTH EVERY DAY medroxyPROG 2020-0 Yes medroxypro [facility] (Provera) 00:00: 10 mg 10 MG 00 tablet tablet TAKE 1 TABLET BY MOUTH EVERY DAY medroxyPROG 2020-0 Yes medroxypro [facility] 6[facility] (Provera) 00:00: 10 mg 10 MG 00 tablet tablet TAKE 1 TABLET BY MOUTH EVERY DAY medroxyPROG 2020-0 Yes medroxypro [facility] 6[facility] (Provera) 00:00: 10 mg 10 MG 00 tablet tablet TAKE 1 TABLET BY MOUTH EVERY DAY medroxyPROG 2020-0 Yes medroxypro [facility] 6[facility] (Provera) 00:00: 10 mg 10 MG 00 tablet tablet TAKE 1 TABLET BY MOUTH EVERY DAY medroxyPROG 2020-0 Yes medroxypro [facility] (Provera) 00:00: 10 mg 10 MG 00 tablet tablet TAKE 1 TABLET BY MOUTH EVERY DAY medroxyPROG 2020-0 Yes medroxypro [facility] (Provera) 00:00: 10 mg 10 MG 00 tablet tablet TAKE 1 TABLET BY MOUTH EVERY DAY medroxyPROG 2020-0 Yes medroxypro [facility] (Provera) 00:00: 10 mg 10 MG 00 tablet tablet TAKE 1 TABLET BY MOUTH EVERY DAY medroxyPROG 2020-0 Yes medroxypro [facility] (Provera) 00:00: 10 mg 10 MG 00 tablet tablet TAKE 1 TABLET BY MOUTH EVERY DAY medroxyPROG 2020-0 Yes medroxypro [facility] (Provera) 00:00: 10 mg 10 MG 00 tablet tablet TAKE 1 TABLET BY MOUTH EVERY DAY medroxyPROG 2020-0 Yes medroxypro [facility] (Provera) 00:00: 10 mg 10 MG 00 tablet tablet TAKE 1 TABLET BY MOUTH EVERY DAY medroxyPROG 2020-0 Yes 10mg Take 10 mg [facility] ESTERone 10 6-03 by mouth ity of mg tablet 00:00: daily. [address] medroxyPROG 2020-0 Yes 10mg Take 10 mg [facility] ESTERone 10 6-03 by mouth ity of mg tablet 00:00: daily. [place] [facility] medroxyPROG 2020-0 Yes 10mg Take 10 mg [facility] ESTERone 10 6-03 by mouth ity of mg tablet 00:00: daily. [place] [facility] Branch medroxyPROG 2020-0 Yes 10mg Take 10 mg [facility] ESTERone 10 6-03 by mouth ity of mg tablet 00:00: daily. [place] [facility] medroxyPROG 2020-0 Yes 10mg Take 10 mg [facility] ESTERone 10 6-03 by mouth ity of mg tablet 00:00: daily. [place] [facility] medroxyPROG 2020-0 Yes 10mg Take 10 mg [facility] ESTERone 10 6-03 by mouth ity of mg tablet 00:00: daily. [place] [facility] medroxyPROG 2020-0 Yes 10mg Take 10 mg [facility] ESTERone 10 6-03 by mouth ity of mg tablet 00:00: daily. [place] [facility] medroxyPROG 2020-0 Yes 10mg Take 10 mg [facility] ESTERone 10 6-03 by mouth ity of mg tablet 00:00: daily. [place] [facility] medroxyPROG 2020-0 Yes 10mg Take 10 mg [facility] ESTERone 10 6-03 by mouth ity of mg tablet 00:00: daily. [place] [facility] medroxyPROG 2020-0 Yes 10mg Take 10 mg [facility] ESTERone 10 6-03 by mouth ity of mg tablet 00:00: daily. [place] [facility] medroxyPROG 2020-0 Yes 10mg Take 10 mg [facility] ESTERone 10 6-03 by mouth ity of mg tablet 00:00: daily. [place] [facility] medroxyPROG 2020-0 Yes 10mg Take 10 mg [facility] ESTERone 10 6-03 by mouth ity of mg tablet 00:00: daily. [place] [facility] medroxyPROG 2020-0 Yes 10mg Take 10 mg [facility] ESTERone 10 6-03 by mouth ity of mg tablet 00:00: daily. [place] [facility] medroxyPROG 2020-0 Yes 10mg Take 10 mg [facility] ESTERone 10 6-03 by mouth ity of mg tablet 00:00: daily. [place] [facility] medroxyPROG 2020-0 Yes 10mg Take 10 mg [facility] ESTERone 10 6-03 by mouth ity of mg tablet 00:00: daily. [place] [facility] medroxyPROG 2020-0 Yes 10mg Take 10 mg [facility] ESTERone 10 6-03 by mouth ity of mg tablet 00:00: daily. [place] [facility] medroxyPROG 2020-0 Yes 10mg Take 10 mg [facility] ESTERone 10 6-03 by mouth ity of mg tablet 00:00: daily. [place] [facility] medroxyPROG 2020-0 Yes 10mg Take 10 mg [facility] ESTERone 10 6-03 by mouth ity of mg tablet 00:00: daily. Medical Branch medroxyPROG 2020-0 Yes 10mg Take 10 mg [facility] ESTERone 10 6-03 by mouth ity of mg tablet 00:00: daily. [place] [facility] medroxyPROG 2020-0 Yes 10mg Take 10 mg [facility] ESTERone 10 6-03 by mouth ity of mg tablet 00:00: daily. [place] [facility] medroxyPROG 2020-0 Yes 10mg Take 10 mg [facility] ESTERone 10 6-03 by mouth ity of mg tablet 00:00: daily. [place] [facility] medroxyPROG 2020-0 Yes 10mg Take 10 mg [facility] ESTERone 10 6-03 by mouth ity of mg tablet 00:00: daily. [place] [facility] cyclobenzap 2020-0 Yes TAKE 1 Univ ers rine 10 mg 5-26 TABLET BY ity of tablet 00:00: MOUTH AT [place] [address] BEDTIME Medical NEEDED FOR Branch SPASM. WILL CAUSE SLEEPINESS , NO DRIVING cyclobenzap 2020-0 Yes TAKE 1 Univ ers rine 10 mg 5-26 TABLET BY ity of tablet 00:00: MOUTH AT [place] [address] BEDTIME Medical NEEDED FOR Branch SPASM. WILL CAUSE SLEEPINESS , NO DRIVING cyclobenzap 2020-0 Yes TAKE 1 Univ ers rine 10 mg 5-26 TABLET BY ity of tablet 00:00: MOUTH AT [place] 00 BEDTIME Medical NEEDED FOR Branch SPASM. WILL CAUSE SLEEPINESS , NO DRIVING cyclobenzap 2020-0 Yes TAKE 1 Univ ers rine 10 mg 5-26 TABLET BY ity of tablet 00:00: MOUTH AT [place] [address] BEDTIME Medical NEEDED FOR Branch SPASM. WILL CAUSE SLEEPINESS , NO DRIVING cyclobenzap 2020-0 Yes TAKE 1 Univ ers rine 10 mg 5-26 TABLET BY ity of tablet 00:00: MOUTH AT [place] [address] BEDTIME Medical NEEDED FOR Branch SPASM. WILL CAUSE SLEEPINESS , NO DRIVING cyclobenzap 2020-0 Yes TAKE 1 Univ ers rine 10 mg 5-26 TABLET BY ity of tablet 00:00: MOUTH AT [place] 00 BEDTIME Medical NEEDED FOR Branch SPASM. WILL CAUSE SLEEPINESS , NO DRIVING cyclobenzap 2020-0 Yes TAKE 1 Univ ers rine 10 mg 5-26 TABLET BY ity of tablet 00:00: MOUTH AT [place] 00 BEDTIME Medical NEEDED FOR Branch SPASM. WILL CAUSE SLEEPINESS , NO DRIVING cyclobenzap 2020-0 Yes TAKE 1 [facility] 10 mg 5-26 TABLET BY ity of tablet 00:00: MOUTH AT [place] 00 BEDTIME Medical NEEDED FOR Branch SPASM. WILL CAUSE SLEEPINESS , NO DRIVING cyclobenzap 2020-0 Yes TAKE 1 [facility] rine 10 mg 5-26 TABLET BY ity of tablet 00:00: MOUTH AT [place] 00 BEDTIME Medical NEEDED FOR Branch SPASM. WILL CAUSE SLEEPINESS , NO DRIVING cyclobenzap 2020-0 Yes TAKE 1 [facility]ine 10 mg 5-26 TABLET BY ity of tablet 00:00: MOUTH AT [place] 00 BEDTIME Medical NEEDED FOR Branch SPASM. WILL CAUSE SLEEPINESS , NO DRIVING cyclobenzap 2020-0 Yes TAKE 1 [facility]ine 10 mg 5-26 TABLET BY ity of tablet 00:00: MOUTH AT [place] 00 BEDTIME Medical NEEDED FOR Branch SPASM. WILL CAUSE SLEEPINESS , NO DRIVING cyclobenzap 2020-0 Yes TAKE 1 [facility]ine 10 mg 5-26 TABLET BY ity of tablet 00:00: MOUTH AT [place] 00 BEDTIME Medical NEEDED FOR Branch SPASM. WILL CAUSE SLEEPINESS , NO DRIVING cyclobenzap 2020-0 Yes TAKE 1 [facility]ine 10 mg 5-26 TABLET BY ity of tablet 00:00: MOUTH AT [place] 00 BEDTIME Medical NEEDED FOR Branch SPASM. WILL CAUSE SLEEPINESS , NO DRIVING cyclobenzap 2020-0 Yes TAKE 1 [facility] 10 mg 5-26 TABLET BY ity of tablet 00:00: MOUTH AT [place] 00 BEDTIME Medical NEEDED FOR Branch SPASM. WILL CAUSE SLEEPINESS , NO DRIVING cyclobenzap 2020-0 Yes TAKE 1 [facility] 10 mg 5-26 TABLET BY ity of tablet 00:00: MOUTH AT [place] 00 BEDTIME Medical NEEDED FOR Branch SPASM. WILL CAUSE SLEEPINESS , NO DRIVING cyclobenzap 2020-0 Yes TAKE 1 [facility]ine 10 mg 5-26 TABLET BY ity of tablet 00:00: MOUTH AT [place] 00 BEDTIME Medical NEEDED FOR Branch SPASM. WILL CAUSE SLEEPINESS , NO DRIVING cyclobenzap 2019- Yes TAKE 1 [facility]ine 10 mg 5-26 TABLET BY ity of tablet 00:00: MOUTH AT [place] [address] BEDTIME Medical NEEDED FOR Branch SPASM. WILL CAUSE SLEEPINESS , NO DRIVING cyclobenzap 2019- Yes TAKE 1 [facility]ine 10 mg 5-26 TABLET BY ity of tablet 00:00: MOUTH AT [place] 00 BEDTIME Medical NEEDED FOR Branch SPASM. WILL CAUSE SLEEPINESS , NO DRIVING cyclobenzap 0 Yes TAKE 1 [facility]ine 10 mg 5-26 TABLET BY ity of tablet 00:00: MOUTH AT [place] 00 BEDTIME Medical NEEDED FOR Branch SPASM. WILL CAUSE SLEEPINESS , NO DRIVING cyclobenzap Yes TAKE 1 [facility]ine 10 mg 5-26 TABLET BY ity of tablet 00:00: MOUTH AT [place] 00 BEDTIME Medical NEEDED FOR Branch SPASM. WILL CAUSE SLEEPINESS , NO DRIVING cyclobenzap Yes TAKE 1 [facility] 10 mg 5-26 TABLET BY ity of tablet 00:00: MOUTH AT [place] 00 BEDTIME Medical NEEDED FOR Branch SPASM. WILL CAUSE SLEEPINESS , NO DRIVING cyclobenzap Yes TAKE 1 [facility] 10 mg 5-26 TABLET BY ity of tablet 00:00: MOUTH AT [place] 00 BEDTIME Medical NEEDED FOR Branch SPASM. WILL CAUSE SLEEPINESS , NO DRIVING rizatriptan Yes rizatripta [facility] 5-18 n 10 mg Health ([facility] 00:00: disintegra ) 10 MG 00 ting disintegrat tablet ing tablet TAKE 1 TABLET BY MOUTH EVERY DAY rizatriptan 2019- Yes rizatripta [facility] 5-18 n 10 mg Health ([facility] 00:00: disintegra ) 10 MG 00 ting disintegrat tablet ing tablet TAKE 1 TABLET BY MOUTH EVERY DAY rizatriptan 2019-0 Yes rizatripta [facility] 5-18 n 10 mg Health ([facility] 00:00: disintegra ) 10 MG 00 ting disintegrat tablet ing tablet TAKE 1 TABLET BY MOUTH EVERY DAY rizatriptan 2019- Yes rizatripta [facility] 5-18 n 10 mg Health ([facility] 00:00: disintegra ) 10 MG 00 ting disintegrat tablet ing tablet TAKE 1 TABLET BY MOUTH EVERY DAY rizatriptan Yes rizatripta [facility] 5-18 n 10 mg Health ([employer] 00:00: disintegra ) 10 MG 00 ting disintegrat tablet ing tablet TAKE 1 TABLET BY MOUTH EVERY DAY rizatriptan Yes rizatripta [facility] 5-18 n 10 mg Health ([employer] 00:00: disintegra ) 10 MG 00 ting disintegrat tablet ing tablet TAKE 1 TABLET BY MOUTH EVERY DAY rizatriptan Yes rizatripta [facility] 5-18 n 10 mg Health ([employer] [facility] 00:00: disintegra ) 10 MG 00 ting disintegrat tablet ing tablet TAKE 1 TABLET BY MOUTH EVERY DAY rizatriptan Yes rizatripta [facility] 5-18 n 10 mg Health ([employer] 00:00: disintegra ) 10 MG 00 ting disintegrat tablet ing tablet TAKE 1 TABLET BY MOUTH EVERY DAY rizatriptan Yes rizatripta [facility] 5-18 n 10 mg Health ([employer] 00:00: disintegra ) 10 MG 00 ting disintegrat tablet ing tablet TAKE 1 TABLET BY MOUTH EVERY DAY rizatriptan Yes rizatripta [facility] 5-18 n 10 mg Health ([employer] 00:00: disintegra ) 10 MG 00 ting disintegrat tablet ing tablet TAKE 1 TABLET BY MOUTH EVERY DAY rizatriptan Yes rizatripta [facility] 5-18 n 10 mg Health ([employer] 00:00: disintegra ) 10 MG 00 ting disintegrat tablet ing tablet TAKE 1 TABLET BY MOUTH EVERY DAY rizatriptan Yes rizatripta [facility] 5-18 n 10 mg Health ([employer] 00:00: disintegra ) 10 MG 00 ting disintegrat tablet ing tablet TAKE 1 TABLET BY MOUTH EVERY DAY rizatriptan Yes 10mg Take 10 mg [facility] 10 mg 5-18 by mouth [facility]y [place] disintegrat [place] tablet 00 [facility] rizatriptan Yes 10mg Take 10 mg [facility] 10 mg 5-18 by mouth ity of disintegrat 00:[place] 00 [facility] rizatriptan 2019-0 Yes 10mg Take 10 mg [facility] 10 mg 5-18 by mouth ity of disintegrat 00:00: [place] [facility] rizatriptan 2019-0 Yes 10mg Take 10 mg [facility] 10 mg 5-18 by mouth ity of disintegrat 00:00: [place] [facility] rizatriptan 2019-0 Yes 10mg Take 10 mg [facility] 10 mg 5-18 by mouth ity of disintegrat 00:00: [place]. [place] [facility] rizatriptan 2019-0 Yes 10mg Take 10 mg [facility] 10 mg 5-18 by mouth ity of disintegrat 00:00: [place] [facility] rizatriptan 0 Yes 10mg Take 10 mg [facility] 10 mg 5-18 by mouth ity of disintegrat 00:00: [place] [facility] rizatriptan 0 Yes 10mg Take 10 mg [facility] 10 mg 5-18 by mouth ity of disintegrat 00:00: [place]. [place] [facility] rizatriptan 0 Yes 10mg Take 10 mg [facility] 10 mg 5-18 by mouth ity of disintegrat 00:00: [place] [facility] rizatriptan 2019-0 Yes 10mg Take 10 mg [facility] 10 mg 5-18 by mouth ity of disintegrat 00:00: [place] 00 [facility] rizatriptan 2019-0 Yes 10mg Take 10 mg [facility] 10 mg 5-18 by mouth ity of disintegrat 00:00: [place]. [place] [facility] rizatriptan 2019-0 Yes 10mg Take 10 mg [facility] 10 mg 5-18 by mouth ity of disintegrat 00:00: [place] [facility] rizatriptan 2019-0 Yes 10mg Take 10 mg [facility] 10 mg 5-18 by mouth ity of disintegrat 00:00: [place]. [place] [facility] rizatriptan 2019-0 Yes 10mg Take 10 mg [facility] 10 mg 5-18 by mouth ity of disintegrat 00:00: [place]. [place] 00 [facility] rizatriptan 2019-0 Yes 10mg Take 10 mg [facility] 10 mg 5-18 by mouth ity of disintegrat 00:00: [place]. [place] [facility] rizatriptan 2019-0 Yes 10mg Take 10 mg [facility] 10 mg 5-18 by mouth ity of disintegrat 00:00: [place]. [place] [facility] rizatriptan 2019-0 Yes 10mg Take 10 mg [facility] 10 mg 5-18 by mouth ity of disintegrat 00:00: [place] [facility] rizatriptan 2019-0 Yes 10mg Take 10 mg [facility] 10 mg 5-18 by mouth ity of disintegrat 00:00: [place]. [place] [facility] rizatriptan 2019-0 Yes 10mg Take 10 mg [facility] 10 mg 5-18 by mouth ity of disintegrat 00:00: [place]. [place] [facility] rizatriptan 2019-0 Yes 10mg Take 10 mg [facility] 10 mg 5-18 by mouth ity of disintegrat 00:00: [place]. [place] [facility] rizatriptan 2019-0 Yes 10mg Take 10 mg [facility] 10 mg 5-18 by mouth ity of disintegrat 00:00: [place]. [place] [facility] rizatriptan 2019-0 Yes 10mg Take 10 mg [facility] 10 mg 5-18 by mouth ity of disintegrat 00:00: [place] [facility] FLUoxetine 2020-0 Yes 20mg Take 20 mg U nivers 20 mg 4-05 by mouth ity of capsule 00:00: daily. [address] FLUoxetine 2020-0 Yes 20mg Take 20 mg U nivers 20 mg 4-05 by mouth ity of capsule 00:00: daily. [address] FLUoxetine 2020-0 Yes 20mg Take 20 mg U nivers 20 mg 4-05 by mouth ity of capsule 00:00: daily. [address] FLUoxetine 2020-0 Yes 20mg Take 20 mg U nivers 20 mg 4-05 by mouth ity of capsule 00:00: daily. [address] FLUoxetine 2020-0 Yes 20mg Take 20 mg U nivers 20 mg 4-05 by mouth ity of capsule 00:00: daily. [place] [facility] FLUoxetine 2020-0 Yes 20mg Take 20 mg U nivers 20 mg 4-05 by mouth ity of capsule 00:00: daily. [place] [facility] FLUoxetine 2020-0 Yes 20mg Take 20 mg U nivers 20 mg 4-05 by mouth ity of capsule 00:00: daily. [place] [facility] FLUoxetine 2020-0 Yes 20mg Take 20 mg U nivers 20 mg 4-05 by mouth ity of capsule 00:00: daily. [place] [facility] FLUoxetine 2020-0 Yes 20mg Take 20 mg U nivers 20 mg 4-05 by mouth ity of capsule 00:00: daily. [place] [facility] FLUoxetine 2020-0 Yes 20mg Take 20 mg U nivers 20 mg 4-05 by mouth ity of capsule 00:00: daily. [place] [facility] FLUoxetine 2020-0 Yes 20mg Take 20 mg U nivers 20 mg 4-05 by mouth ity of capsule 00:00: daily. [place] [facility] FLUoxetine 2020-0 Yes 20mg Take 20 mg U nivers 20 mg 4-05 by mouth ity of capsule 00:00: daily. [place] [facility] FLUoxetine 2020-0 Yes 20mg Take 20 mg U nivers 20 mg 4-05 by mouth ity of capsule 00:00: daily. [place] [facility] FLUoxetine 2020-0 Yes 20mg Take 20 mg U nivers 20 mg 4-05 by mouth ity of capsule 00:00: daily. [place] [facility] FLUoxetine 2020-0 Yes 20mg Take 20 mg U nivers 20 mg 4-05 by mouth ity of capsule 00:00: daily. [place] [facility] FLUoxetine 2020-0 Yes 20mg Take 20 mg U nivers 20 mg 4-05 by mouth ity of capsule 00:00: daily. [place] [facility] FLUoxetine 2020-0 Yes 20mg Take 20 mg U nivers 20 mg 4-05 by mouth ity of capsule 00:00: daily. [place] [facility] FLUoxetine 2020-0 Yes 20mg Take 20 mg U nivers 20 mg 4-05 by mouth ity of capsule 00:00: daily. [address] FLUoxetine 2020-0 Yes 20mg Take 20 mg U nivers 20 mg 4-05 by mouth ity of capsule 00:00: daily. [place] [facility] FLUoxetine 2020-0 Yes 20mg Take 20 mg U nivers 20 mg 4-05 by mouth ity of capsule 00:00: daily. [place] [facility] FLUoxetine 2020-0 Yes 20mg Take 20 mg U nivers 20 mg 4-05 by mouth ity of capsule 00:00: daily. [place] [facility] FLUoxetine 2020-0 Yes 20mg Take 20 mg U nivers 20 mg 4-05 by mouth ity of capsule 00:00: daily. [place] [facility] estradiol 2 2020-0 Yes 2mg Take 2 mg U nivers mg tablet 4-04 by mouth ity of 00:00: daily. [place] [facility] estradiol 2 2020-0 Yes 2mg Take 2 mg U nivers mg tablet 4-04 by mouth ity of 00:00: daily. [place] [facility] estradiol 2 2020-0 Yes 2mg Take 2 mg U nivers mg tablet 4-04 by mouth ity of 00:00: daily. [address] estradiol 2 2020-0 Yes 2mg Take 2 mg U nivers mg tablet 4-04 by mouth ity of 00:00: daily. [place] [facility] estradiol 2 2020-0 Yes 2mg Take 2 mg U nivers mg tablet 4-04 by mouth ity of 00:00: daily. [place] [facility] estradiol 2 2020-0 Yes 2mg Take 2 mg U nivers mg tablet 4-04 by mouth ity of 00:00: daily. [place] [facility] estradiol 2 2020-0 Yes 2mg Take 2 mg U nivers mg tablet 4-04 by mouth ity of 00:00: daily. [place] [facility] estradiol 2 2020-0 Yes 2mg Take 2 mg U nivers mg tablet 4-04 by mouth ity of 00:00: daily. [place] [facility] estradiol 2 2020-0 Yes 2mg Take 2 mg U nivers mg tablet 4-04 by mouth ity of 00:00: daily. [address] estradiol 2 2020-0 Yes 2mg Take 2 mg U nivers mg tablet 4-04 by mouth ity of 00:00: daily. [address] estradiol 2 2020-0 Yes 2mg Take 2 mg U nivers mg tablet 4-04 by mouth ity of 00:00: daily. [address] estradiol 2 2020-0 Yes 2mg Take 2 mg U nivers mg tablet 4-04 by mouth ity of 00:00: daily. [address] estradiol 2 2020-0 Yes 2mg Take 2 mg U nivers mg tablet 4-04 by mouth ity of 00:00: daily. [place] [facility] estradiol 2 2020-0 Yes 2mg Take 2 mg U nivers mg tablet 4-04 by mouth ity of 00:00: daily. [place] [facility] estradiol 2 2020-0 Yes 2mg Take 2 mg U nivers mg tablet 4-04 by mouth ity of 00:00: daily. [place] [facility] estradiol 2 2020-0 Yes 2mg Take 2 mg U nivers mg tablet 4-04 by mouth ity of 00:00: daily. [place] [facility] estradiol 2 2020-0 Yes 2mg Take 2 mg U nivers mg tablet 4-04 by mouth ity of 00:00: daily. [place] [facility] estradiol 2 2020-0 Yes 2mg Take 2 mg U nivers mg tablet 4-04 by mouth ity of 00:00: daily. [place] [facility] estradiol 2 2020-0 Yes 2mg Take 2 mg U nivers mg tablet 4-04 by mouth ity of 00:00: daily. [place] [facility] estradiol 2 2020-0 Yes 2mg Take 2 mg U nivers mg tablet 4-04 by mouth ity of 00:00: daily. [place] [facility] estradiol 2 2020-0 Yes 2mg Take 2 mg U nivers mg tablet 4-04 by mouth ity of 00:00: daily. [place] [facility] estradiol 2 2020-0 Yes 2mg Take 2 mg U nivers mg tablet 4-04 by mouth ity of 00:00: daily. [place] [facility] zolpidem 2014-06 Yes Univers (AMBIEN CR) 0-26 ity of 12.5 mg CR 00:00: [place] tablet [facility] zolpidem 2014-06 Yes Univers (AMBIEN CR) 0-26 ity of 12.5 mg CR 00:00: [place] tablet [facility] zolpidem 2014-06 Yes Univers (AMBIEN CR) 0-26 ity of 12.5 mg CR 00:00: [place] tablet [facility] zolpidem 2014-06 Yes Univers (AMBIEN CR) 0-26 ity of 12.5 mg CR 00:00: [place] tablet [facility] zolpidem 2014-06 Yes Univers (AMBIEN CR) 0-26 ity of 12.5 mg CR 00:00: [place] tablet 00 [facility] zolpide 2014-06 Yes Univers (AMBIEN CR) 0-26 ity of 12.5 mg CR 00:00: [place] tablet 00 [facility] zolpide 2014-06 Yes Univers (AMBIEN CR) 0-26 ity of 12.5 mg CR 00:00: [place] tablet 00 [facility] zolpide 2014-06 Yes Univers (AMBIEN CR) 0-26 ity of 12.5 mg CR 00:00: [place] tablet 00 [facility] zolpide 2014-06 Yes Univers (AMBIEN CR) 0-26 ity of 12.5 mg CR 00:00: [place] tablet 00 [facility] zolpide 2014-06 Yes Univers (AMBIEN CR) 0-26 ity of 12.5 mg CR 00:00: [place] tablet [facility] zolpide 2014-06 Yes Univers (AMBIEN CR) 0-26 ity of 12.5 mg CR 00:00: [place] tablet [facility] zolpide 2014-06 Yes Univers (AMBIEN CR) 0-26 ity of 12.5 mg CR 00:00: [place] tablet 00 [facility] zolpide 2014-06 Yes Univers (AMBIEN CR) 0-26 ity of 12.5 mg CR 00:00: [place] tablet 00 [facility] zolpide 2014-06 Yes Univers (AMBIEN CR) 0-26 ity of 12.5 mg CR 00:00: [place] tablet 00 [facility] zolpide 2014-06 Yes Univers (AMBIEN CR) 0-26 ity of 12.5 mg CR 00:00: [place] tablet 00 [facility] zolpide 2014-06 Yes Univers (AMBIEN CR) 0-26 ity of 12.5 mg CR 00:00: [place] tablet 00 [facility] zolpide 2014-06 Yes Univers (AMBIEN CR) 0-26 ity of 12.5 mg CR 00:00: [place] tablet 00 [facility] zolpide 2014-06 Yes Univers (AMBIEN CR) 0-26 ity of 12.5 mg CR 00:00: [place] tablet 00 [facility] zolpide 2014-06 Yes Univers (AMBIEN CR) 0-26 ity of 12.5 mg CR 00:00: [place] tablet 00 [facility] zolpide 2014-06 Yes Univers (AMBIEN CR) 0-26 ity of 12.5 mg CR 00:00: [place] tablet 00 [facility] zolpidem 2014-06 Yes Univers (AMBIEN CR) 0-26 ity of 12.5 mg CR 00:00: [place] tablet 00 [facility] zolpidem 2014-06 Yes Univers (AMBIEN CR) 0-26 ity of 12.5 mg CR 00:00: [place] tablet 00 [facility] zolpidem 2014-06 Yes Univers (AMBIEN CR) 0-26 ity of 12.5 mg CR 00:00: [place] tablet 00 [facility] valACYclovi 2014-06 Yes Univer s r (VALTREX) 0-25 ity of 1 gram 00:00: [place] tablet 00 [facility] valACYclovi 2014-06 Yes Univer s r (VALTREX) 0-25 ity of 1 gram 00:00: [place] tablet 00 [facility] valACYclovi 2014-06 Yes Univer s r (VALTREX) 0-25 ity of 1 gram 00:00: [place] tablet 00 [facility] valACYclovi 2014-06 Yes Univer s r (VALTREX) 0-25 ity of 1 gram 00:00: [place] tablet 00 [facility] valACYclovi 2014-06 Yes Univer s r (VALTREX) 0-25 ity of 1 gram 00:00: [place] tablet 00 [facility] valACYclovi 2014-06 Yes Univer s r (VALTREX) 0-25 ity of 1 gram 00:00: [place] tablet 00 [facility] valACYclovi 2014-06 Yes Univer s r (VALTREX) 0-25 ity of 1 gram 00:00: [place] tablet 00 [facility] valACYclovi 2014-06 Yes Univer s r (VALTREX) 0-25 ity of 1 gram 00:00: [place] tablet 00 [facility] valACYclovi 2014-06 Yes Univer s r (VALTREX) 0-25 ity of 1 gram 00:00: [place] tablet 00 [facility] valACYclovi 2014-06 Yes Univer s r (VALTREX) 0-25 ity of 1 gram 00:00: [place] tablet 00 [facility] valACYclovi 2014-06 Yes Univer s r (VALTREX) 0-25 ity of 1 gram 00:00: [place] tablet 00 [facility] valACYclovi 2014-06 Yes Univer s r (VALTREX) 0-25 ity of 1 gram 00:00: [place] tablet 00 [facility] valACYclovi 2014-06 Yes Univer s r (VALTREX) 0-25 ity of 1 gram 00:00: [place] tablet 00 [facility] valACYclovi 2014-06 Yes Univer s r (VALTREX) 0-25 ity of 1 gram 00:00: [place] tablet 00 [facility] valACYclovi 2014-06 Yes Univer s r (VALTREX) 0-25 ity of 1 gram 00:00: [place] tablet 00 [facility] valACYclovi 2014-06 Yes Univer s r (VALTREX) 0-25 ity of 1 gram 00:00: [place] tablet 00 [facility] valACYclovi 2014-06 Yes Univer s r (VALTREX) 0-25 ity of 1 gram 00:00: [place] tablet 00 [facility] valACYclovi 2014-06 Yes Univer s r (VALTREX) 0-25 ity of 1 gram 00:00: [place] tablet 00 [facility] valACYclovi 2014-06 Yes Univer s r (VALTREX) 0-25 ity of 1 gram 00:00: [place] tablet 00 [facility] valACYclovi 2014-06 Yes Univer s r (VALTREX) 0-25 ity of 1 gram 00:00: [place] tablet 00 [facility] valACYclovi 2014-06 Yes Univer s r (VALTREX) 0-25 ity of 1 gram 00:00: [place] tablet 00 [facility] valACYclovi 2014-06 Yes Univer s r (VALTREX) 0-25 ity of 1 gram 00:00: [place] tablet 00 [facility] valACYclovi 2014-06 Yes Univer s r (VALTREX) 0-25 ity of 1 gram 00:00: [place] tablet 00 [facility] omeprazole 2014-06 Yes Univers (PRILOSEC) 0-14 ity of 40 mg 00:00: [place] capsule 00 [facility] omeprazole 2014-06 Yes Univers (PRILOSEC) 0-14 ity of 40 mg 00:00: [place] capsule 00 [facility] omeprazole 2014-06 Yes Univers (PRILOSEC) 0-14 ity of 40 mg 00:00: [place] capsule 00 [facility] omeprazole 2014-06 Yes Univers (PRILOSEC) 0-14 ity of 40 mg 00:00: [place] capsule 00 [facility] omeprazole 2014-06 Yes Univers (PRILOSEC) 0-14 ity of 40 mg 00:00: [place] capsule [facility] omeprazole 2014-06 Yes Univers (PRILOSEC) 0-14 ity of 40 mg 00:00: [place] capsule [facility] omeprazole 2014-06 Yes Univers (PRILOSEC) 0-14 ity of 40 mg 00:00: [place] capsule [facility] omeprazole 2014-06 Yes Univers (PRILOSEC) 0-14 ity of 40 mg 00:00: [place] capsule [facility] omeprazole 2014-06 Yes Univers (PRILOSEC) 0-14 ity of 40 mg 00:00: [place] capsule [facility] omeprazole 2014-06 Yes Univers (PRILOSEC) 0-14 ity of 40 mg 00:00: [place] capsule [facility] omeprazole 2014-06 Yes Univers (PRILOSEC) 0-14 ity of 40 mg 00:00: [place] capsule [facility] omeprazole 2014-06 Yes Univers (PRILOSEC) 0-14 ity of 40 mg 00:00: [place] capsule [facility] omeprazole 2014-06 Yes Univers (PRILOSEC) 0-14 ity of 40 mg 00:00: [place] capsule [facility] omeprazole 2014-06 Yes Univers (PRILOSEC) 0-14 ity of 40 mg 00:00: [place] capsule [facility] omeprazole 2014-06 Yes Univers (PRILOSEC) 0-14 ity of 40 mg 00:00: [place] capsule [facility] omeprazole 2014-06 Yes Univers (PRILOSEC) 0-14 ity of 40 mg 00:00: [place] capsule [facility] omeprazole 2014-06 Yes Univers (PRILOSEC) 0-14 ity of 40 mg 00:00: [place] capsule [facility] omeprazole 2014-06 Yes Univers (PRILOSEC) 0-14 ity of 40 mg 00:00: [place] capsule [facility] omeprazole 2014-06 Yes Univers (PRILOSEC) 0-14 ity of 40 mg 00:00: [place] capsule [facility] omeprazole 2014-06 Yes Univers (PRILOSEC) 0-14 ity of 40 mg 00:00: [place] capsule [facility] omeprazole 2014-06 Yes Univers (PRILOSEC) 0-14 ity of 40 mg 00:00: [place] capsule [facility] omeprazole 2014-06 Yes Univers (PRILOSEC) 0-14 ity of 40 mg 00:00: [place] capsule 00 [facility] [place] omeprazole 2014-06 Yes Univers (PRILOSEC) 0-14 ity of 40 mg 00:00: [place] capsule [facility] ALPRAZolam 2014-06 Yes Univers (XANAX) 0.5 0-02 ity of mg tablet 00:00: [place] [facility] ALPRAZolam 2014-06 Yes Univers (XANAX) 0.5 0-02 ity of mg tablet 00:00: [place] [facility] ALPRAZolam 2014-06 Yes Univers (XANAX) 0.5 0-02 ity of mg tablet 00:00: [place] [facility] ALPRAZolam 2014-06 Yes Univers (XANAX) 0.5 0-02 ity of mg tablet 00:00: [facility] ALPRAZolam 2014-06 Yes Univers (XANAX) 0.5 0-02 ity of mg tablet 00:00: [place] [facility] ALPRAZolam 2014-06 Yes Univers (XANAX) 0.5 0-02 ity of mg tablet 00:00: [place] [facility] ALPRAZolam 2014-06 Yes Univers (XANAX) 0.5 0-02 ity of mg tablet 00:00: [place] [facility] ALPRAZolam 2014-06 Yes Univers (XANAX) 0.5 0-02 ity of mg tablet 00:00: [place] [facility] ALPRAZolam 2014-06 Yes Univers (XANAX) 0.5 0-02 ity of mg tablet 00:00: [place] [facility] ALPRAZolam 2014-06 Yes Univers (XANAX) 0.5 0-02 ity of mg tablet 00:00: [place] [facility] ALPRAZolam 2014-06 Yes Univers (XANAX) 0.5 0-02 ity of mg tablet 00:00: [place] [facility] ALPRAZolam 2014-06 Yes Univers (XANAX) 0.5 0-02 ity of mg tablet 00:00: [place] [facility] ALPRAZolam 2014-06 Yes Univers (XANAX) 0.5 0-02 ity of mg tablet 00:00: [facility] ALPRAZolam 2014-06 Yes Univers (XANAX) 0.5 0-02 ity of mg tablet 00:00: [place] 00 [facility] ALPRAZolam 2014-06 Yes Univers (XANAX) 0.5 0-02 ity of mg tablet 00:00: [place] [facility] ALPRAZolam 2014-06 Yes Univers (XANAX) 0.5 0-02 ity of mg tablet 00:00: [place] [facility] ALPRAZolam 2014-06 Yes Univers (XANAX) 0.5 0-02 ity of mg tablet 00:00: [place] [facility] ALPRAZolam 2014-06 Yes Univers (XANAX) 0.5 0-02 ity of mg tablet 00:00: [place] [facility] ALPRAZolam 2014-06 Yes Univers (XANAX) 0.5 0-02 ity of mg tablet 00:00: [place] [facility] ALPRAZolam 2014-06 Yes Univers (XANAX) 0.5 0-02 ity of mg tablet 00:00: [place] [facility] ALPRAZolam 2014-06 Yes Univers (XANAX) 0.5 0-02 ity of mg tablet 00:00: [place] [facility] ALPRAZolam 2014-06 Yes Univers (XANAX) 0.5 0-02 ity of mg tablet 00:00: [place] [facility] ALPRAZolam 2014-06 Yes Univers (XANAX) 0.5 0-02 ity of mg tablet 00:00: [place] [facility] buPROPion Yes Univers XL 8-28 ity of (WELLBUTRIN 00:00: [place] XL) 300 mg 00 Medical 24 hr Branch tablet buPROPion Yes Univers XL 8-28 ity of (WELLBUTRIN 00:00: [place] XL) 300 mg 00 Medical 24 hr Branch tablet buPROPion Yes Univers XL 8-28 ity of (WELLBUTRIN 00:00: [place] XL) 300 mg 00 Medical 24 hr Branch tablet buPROPion Yes Univers XL 8-28 ity of (WELLBUTRIN 00:00: [place] XL) 300 mg 00 Medical 24 hr Branch tablet buPROPion Yes Univers XL 8-28 ity of (WELLBUTRIN 00:00: [place] XL) 300 mg 00 Medical 24 hr Branch tablet buPROPion Yes Univers XL 8-28 ity of (WELLBUTRIN 00:00: [place] XL) 300 mg 00 Medical 24 hr Branch tablet buPROPion Yes Univers XL 8-28 ity of (WELLBUTRIN 00:00: [place] XL) 300 mg 00 Medical 24 hr Branch tablet buPROPion Yes Univers XL 8-28 ity of (WELLBUTRIN 00:00: [place] XL) 300 mg 00 Medical 24 hr Branch tablet buPROPion Yes Univers XL 8-28 ity of (WELLBUTRIN 00:00: [place] XL) 300 mg 00 Medical 24 hr Branch tablet buPROPion Yes Univers XL 8-28 ity of (WELLBUTRIN 00:00: [place] XL) 300 mg 00 Medical 24 hr Branch tablet buPROPion Yes Univers XL 8-28 ity of (WELLBUTRIN 00:00: [place] XL) 300 mg 00 Medical 24 hr Branch tablet buPROPion Yes Univers XL 8-28 ity of (WELLBUTRIN 00:00: [place] XL) 300 mg 00 Medical 24 hr Branch tablet buPROPion Yes Univers XL 8-28 ity of (WELLBUTRIN 00:00: [place] XL) 300 mg 00 Medical 24 hr Branch tablet buPROPion Yes Univers XL 8-28 ity of (WELLBUTRIN 00:00: [place] XL) 300 mg 00 Medical 24 hr Branch tablet buPROPion Yes Univers XL 8-28 ity of (WELLBUTRIN 00:00: [place] XL) 300 mg 00 Medical 24 hr Branch tablet buPROPion Yes Univers XL 8-28 ity of (WELLBUTRIN 00:00: [place] XL) 300 mg 00 Medical 24 hr Branch tablet buPROPion Yes Univers XL 8-28 ity of (WELLBUTRIN 00:00: [place] XL) 300 mg 00 Medical 24 hr Branch tablet buPROPion Yes Univers XL 8-28 ity of (WELLBUTRIN 00:00: [place] XL) 300 mg 00 Medical 24 hr Branch tablet buPROPion Yes Univers XL 8-28 ity of (WELLBUTRIN 00:00: [place] XL) 300 mg 00 Medical 24 hr Branch tablet buPROPion Yes Univers XL 8-28 ity of (WELLBUTRIN 00:00: [place] XL) 300 mg 00 Medical 24 hr Branch tablet buPROPion 2015-0 Yes Univers XL 8-28 ity of (WELLBUTRIN 00:00: [place] XL) 300 mg 00 Medical 24 hr Branch tablet buPROPion 2014-0 Yes Univers XL 8-28 ity of (WELLBUTRIN 00:00: [place] XL) 300 mg 00 Medical 24 hr Branch tablet buPROPion 2014-0 Yes Univers XL 8-28 ity of (WELLBUTRIN 00:00: [place] XL) 300 mg 00 Medical 24 hr Branch tablet Vital Signs Vital Name Observation Time Observation Value Comments Source Body height 2021-05-26 16:58:00 [facility] weight 2021-05-26 16:58:00 [facility]245 [facility] BMI 2021-05-26 16:58:00 34.10 kg/m2 [facility] height 2021-04-28 14:48:00 171.5 [facility] weight 2021-04-28 14:48:00 100.245 [facility] BMI 2021-04-28 14:48:00 34.10 kg[facility]m2 [facility] Body height 2021-04-13 20:09:00 171.5 [facility] Body weight 2021-04-13 20:09:00 100.608 [facility] BMI 2021-04-13 20:09:00 34.23 kg[facility]m2 [facility] Systolic blood 2020-02-19 14:52:00 132 mm[facility]Hg[facility] 2020-02-19 14:52:00 84 mm[Hg] Unive [facility] Heart rate 2020-02-19 14:52:00 60 /min Universi [facility] Systolic blood 2020-02-19 14:52:00 132 mm[Hg] Univer sity [facility] pressure [facility] Branch Diastolic blood 2020-02-19 14:52:00 84 mm[Hg] [facility] 2020-02-19 14:52:00 60 /min Universi [facility] Systolic blood 2020-02-05 16:13:00 128 mm[Hg] Univer sity [facility] Branch Diastolic blood 2020-02-05 16:13:00 87 mm[Hg] [facility] Heart rate 2020-02-05 16:13:00 81 /min [facility] [place] [facility] Body height 2020-02-05 16:13:00 177.8 cm [facility] [place] [facility] Body weight 2020-02-05 16:13:00 95.255 kg [facility] [place] [facility] BMI 2020-02-05 16:13:00 30.13 kg/m2 [facility] [place] [facility] Systolic blood 2020-01-20 15:26:00 115 mm[Hg] [facility]iver [facility] [place] [facility] Diastolic blood 2020-01-20 15:26:00 78 mm[Hg] [facility]ive [facility] [place] pressure [facility] Heart rate 2020-01-20 15:26:00 78 /min [facility] [place] [facility] Body height 2020-01-20 15:26:00 177.8 cm [facility] [place] [facility] Body weight 2020-01-20 15:26:00 95.255 kg [facility] [place] [facility] BMI 2020-01-20 15:26:00 30.13 kg/m2 [facility] [place] [facility] Systolic blood 2020-01-01 13:21:00 123 mm[Hg] [facility]iver [facility] [place] [facility] Diastolic blood 2020-01-01 13:21:00 70 mm[Hg] [facility]ive [facility] [place] [facility] Heart rate 2020-01-01 13:21:00 83 /min [facility] [place] [facility] Body height 2020-01-01 13:21:00 177.8 cm [facility] [place] [facility] Body weight 2020-01-01 13:21:00 95.255 kg [facility] [place] [facility] BMI 2020-01-01 13:21:00 30.13 kg/m2 [facility] [place] [facility] Systolic blood 2019-12-04 13:14:00 129 mm[Hg] [facility] [place] [facility] Diastolic blood 2019-12-04 13:14:00 80 mm[Hg] [facility]ive [facility] [place] [facility] Heart rate 2019-12-04 13:14:00 85 /min [facility] [place] [facility] Body height 2019-12-04 13:14:00 177.8 cm [facility] [place] [facility] Body weight 2019-12-04 13:14:00 95.255 kg [facility] [place] [facility] BMI 2019-12-04 13:14:00 30.13 kg/m2 [facility] Medical Branch Procedures Procedure Date / Time Performed Performing Clinician Korin joya XR KNEE 4+ VIEWS LEFT 2021-04-13 19:55:00 AvalosShade [place] [facility] Op Promis 29 2020-03-31 00:00:00 [facility] Survey Physicians MR Shoulder wo 2020-03-04 00:00:00 [place] o [facility] contrast [id number] Physicians EXTERNAL PROVIDER 2020-03-02 05:01:00 Doctor Unassigned, No [facility] [place] RECORDS Name Medical Branch REFERRAL- 2020-02-19 05:01:00 Doctor Unassigned, No Univer sity [facility] REQUEST/RESPONSE Name Medical Branch REFERRAL- 2020-02-05 05:01:00 Doctor Unassigned, No [facility]RESPONSE Name Medical Branch EXTERNAL PROVIDER 2020-01-21 05:01:00 Doctor Unassigned, No Univ ersity [facility] RECORDS Name Medical Branch EXTERNAL PROVIDER 2019-11-11 05:01:00 Doctor Unassigned, No [facility] Name [facility] Branch Encounters Start End Encounter Admission Attending Care Care Encounter Source Date/Time Date/Time Type Type Clinicians Facility Department ID 2021-08-12 Outpatient ROBBIE [facility] [id number] [place] 01:01:39 [facility] 2021-05-26 [facility] [id number] [place] 11:11:27 [facility] 2021-08-29 2021-08-29 Outpatient GC_SWHAWPRC PRIV PRIV [id number] [facility] 12:51:00 12:51:00 _Fisher_H [id number] [facility] 2021-08-03 2021-08-03 Outpatient GC_SWHAWPRC PRIV PRIV [id number] [facility] 02:58:00 02:58:00 _Fisher_H [id number] [facility] 2021-08-03 2021-08-03 Outpatient GC_SWHAWPRC PRIV PRIV [id number] [facility] 02:58:00 02:58:00 _Fisher_H [id number] [facility] 2021-08-02 2021-08-02 Outpatient GC_SWHAWPRC PRIV PRIV [id number] [facility] 02:09:00 02:09:00 _Fisher_H [id number] [facility] 2021-07-28 2021-07-28 Outpatient GC_SWHAWPRC PRIV PRIV [id number] [facility] 03:49:00 03:49:00 _Fisher_H [id number] [facility] 2021-07-27 2021-07-27 Outpatient GC_SWHAWPRC PRIV PRIV [id number] [facility] 05:32:00 05:32:00 _Richard_H [id number] [facility] 2021-07-27 2021-07-27 Outpatient Richard, PRIV PRIV [id number] 00:00:00 00:00:00 Natty [id number] Matias [id number] 2021-05-31 2021-05-31 Outpatient GC_SWHAOMC_ PRIV PRIV [id number] [facility] 03:30:00 03:30:00 Leanne [id number] [facility] 2021-05-26 2021-05-26 Office KESHIA AVALOS [facility] 1.2.840.114 [id number] [place] 10:15:00 10:30:00 Visit [facility] [id number] H [facility] 9.2.7.2.686 PLAZA 2 [id number] [id number] 2021-05-24 2021-05-24 Outpatient GC_SWHAWPRC PRIV PRIV [id number] [facility] 03:44:00 03:44:00 _Richard_H [id number] [facility] 2021-05-24 2021-05-24 Outpatient Yang, PRIV PRIV [id number] 00:00:00 00:00:00 Celio [id number] Bude [id number] 2021-05-23 2021-05-23 Outpatient GC_SWHAOMC_ PRIV PRIV [id number] [facility] 04:56:00 04:56:00 Leanne [id number] [facility] 2021-05-13 2021-05-13 [id number] MH 05:22:00 10:50:00 [facility] 2021-05-05 2021-05-05 Refill KESHIA Avalos 1.2.840.114 [id number] [place] 00:00:00 00:00:00 [facility]ruly[facility]hnaz [facility] [id number] Health T CARE 9.2.7.2.686 CENTER AT [id number] [place] Alatorre [facility] 2021-05-03 2021-05-03 Refill Ana Grullon [facility] 1.2.840.11 [id number] [place] 00:00:00 00:00:00 Ana Grullon 350.1.13.58 Health MEDICAL 9.2.7.2.686 PLAZA 6 [id number] 5 2021-05-03 2021-05-03 Refill Ana Grullon [facility] 1.2.840.11 [id number] [place] 00:00:00 00:00:00 Ana Grullon 350.1.13.58 Health MEDICAL 9.2.7.2.686 PLAZA 8 [id number] 5 2021-05-02 2021-05-02 Orders Ana Grullon [facility] 1.2.840.11 [id number] [place] 00:00:00 00:00:00 Only Ana Grullon 350.1.13.58 Health MEDICAL 9.2.7.2.686 PLAZA 3 [id number] 5 2021-05-02 2021-05-02 EXT H OP Robbie, EXT MSRDP 1.2.840.114 [id number] [place] 00:00:00 00:00:00 Unrulymahnaz [place] 350.1.13.58 H ealt 9.2.7.2.686 [id number] 2021-04-28 2021-04-28 Office Robbie [facility] 1.2.840.114 [id number] [place] 08:42:47 09:54:20 Visit Unrulygeneva TAYLOR 350.1.13.58 [facility] MEDICAL 9.2.7.2.686 PLAZA 1 [id number] 5 2021-04-22 2021-04-22 Refill Ana Grullon [facility] 1.2.840.11 [id number] [place] 00:00:00 00:00:00 Ana Grullon 350.1.13.58 Health MEDICAL 9.2.7.2.686 PLAZA 2 [id number] 5 2021-04-20 2021-04-20 EXT MHH OP Robbie, EXT MSRDP 1.2.840.114 1 [id number] [place] 00:00:00 00:00:00 Unruly LOCATION 350.1.13.58 H ealth 9.2.7.2.686 [id number] 0 2021-04-14 2021-04-14 Orders Ana Grullon [facility] 1.2.840.11 [id number] [place] 00:00:00 00:00:00 Only Ana Grullon [place] 350.1.13.58 Health MEDICAL 9.2.7.2.686 PLAZA 6 [id number] 5 2021-04-13 2021-04-13 Office Robbie [facility] 1.2.840.114 [id number] [place] 14:47:02 15:53:55 Visit Unruly CONVENIEN 350.1.13.58 Health T CARE 9.2.7.2.686 CENTER AT [id number] [address] 2021-04-13 2021-04-13 EXT [facility] OP Robbie, EXT MSRDP 1.2.840.114 [id number] [place] 00:00:00 00:00:00 Unruly LOCATION 350.1.13.58 H ealth 9.2.7.2.686 [id number] 2021-04-08 2021-04-08 Outpatient Ric MARTIN [facility] [id number] Univers 09:45:00 09:45:00 SALONI [id number] [facility] 2021-04-08 2021-04-08 Outpatient Ric MARTIN [facility] [id number] Univers 09:45:00 09:45:00 SALONI [facility] 2020-06-15 2020-06-15 Appointmen KESHIA CASEY Orthopedics [id number] [facility] 11:30:00 11:30:00 t; Joe CHURCH at [facility] Yessenia CASEY Medicine Physici M.D. [facility] [address] 2020-06-01 2020-06-01 Outpatient GC_SWHAOMC_ PRIV PRIV [id number] [facility] 10:16:00 10:16:00 Yang_Arleen [id number] [facility] 2020-04-29 2020-04-29 Appointmen ARTHUR [facility] Orthopedics [id number] Univers 11:00:00 11:00:00 t; MINESH, at [facility] ARTHUR, P.A. [facility] MINESH Medicine Physici P.AClara [facility] [address] 2020-04-01 2020-04-01 Appointmen ARTHUR [facility] Orthopedics [id number] Univers 15:45:00 15:45:00 [facility] MINESH Medicine Physici P.AClara [facility], [facility] A 2020-03-15 2020-03-15 [facility] [id number] [facility] 11:16:00 17:55:00 RANJIT [facility] 2020-03-15 2020-03-15 [facility] [id number] Univers 14:00:00 14:00:00 t; Joe CHURCH [place], [place] Jim CHURCH M.D. [facility] 2020-03-11 2020-03-11 Appointmen CELIO [facility] Orthopedics 69 [id number] Univers 13:15:00 13:15:00 t; Joe CHURCH at [facility] Jamilah CHURCH M.D. [facility], [facility] A 2020-03-04 2020-03-04 Appointmen CELIO [facility] Orthopedics 69 [id number] Univers 11:15:00 11:15:00 t; Joe CHURCH at [facility] Jamilah CHURCH M.D. [facility], [facility] A 2020-03-02 2020-03-02 Orders Doctor NIXON 1.2.840.114 [id number] Univers 00:00:00 00:00:00 Only [place]assigned[place] 350.1.13.10 ity of [place] [facility] 4.2.7.2.686 Jorge Luis as [id number] [address] 2020-03-02 2020-03-02 Orders Doctor TIFFANI 1.2.840.114 [id number] 00:00:00 00:00:00 Only [place]assigned[place] 350.1.13.10 [facility] 4.2.7.2.686 [id number] 2020-03-01 2020-03-01 Emergency E SAMIR, [facility] [id number] [facility] 13:12:00 22:01:00 JAQUELINE [facility] 2020-02-28 2020-02-28 Diego [facility] 1.2.840.114 [id number] Univers 00:00:00 00:00:00 Bon [employer] 350.1.13.10 it y of Surgical 4.2.7.2.686 Jorge Luis as Specialti [phone] Ma dical es 198 [facility] 2020-02-28 2020-02-28 [facility] 1.2.840.114 [id number] 00:00:00 00:00:00 Bon S Health 350.1.13.10 Surgical 4.2.7.2.686 Specialti [id number] es [address] [place] [address] 2020-02-19 2020-02-19 Office [facility] 1.2.843.380 [id number] [facility] 09:27:22 10:09:07 Visit [facility] [employer] 350.1.13.10 it y of Surgical 4.2.7.2.686 Jorge Luis as Specialti [id number] Me dical es 198 [facility] 2020-02-19 2020-02-19 Office [facility] 1.2.999.889 [id number] 09:27:22 10:09:07 Visit [facility] [employer] 350.1.13.10 Surgical 4.2.7.2.686 Specialti [id number] es [address] [place] [address] 2020-02-19 2020-02-19 Outpatient Ric MARTIN [facility] [id number] Univers 09:30:00 09:30:00 SALONI [id number] ity of [facility] 2020-02-19 2020-02-19 Outpatient Ric MARTIN [facility] [id number] Univers 09:30:00 09:30:00 SALONI ity [facility] 2020-02-19 2020-02-19 Orders Doctor NIXON 1.2.840.114 [id number] Univers 00:00:00 00:00:00 Only [place]igned[place] 350.1.13.10 ity of [place] [facility] 4.2.7.2.686 Jorge Luis as [id number] [address] 2020-02-19 2020-02-19 Orders Doctor TIFFANI 1.2.840.114 [id number] 00:00:00 00:00:00 Only [place]assigned, [place] 350.1.13.10 [facility] 4.2.7.2.686 [id number] [facility] 2020-02-17 2020-02-17 [facility] [id number] Univers 17:30:00 17:30:00 [facility] 2020-02-05 2020-02-05 Office [facility] 1.2.840.114 [id number] Univers 11:01:26 11:57:43 Visit Bon [facility] 350.1.13.10 it y of Surgical 4.2.7.2.686 Jorge Luis as Specialti [phone] Ma dical [address] 2020-02-05 2020-02-05 Outpatient [facility] [id number] Univers 11:30:00 11:30:00 SALONI ity [facility] 2020-02-05 2020-02-05 Out[facility] [id number] Univers 11:15:00 11:15:00 BON ity [facility] 2020-02-05 2020-02-05 Orders Doctor NIXON 1.2.840.114 [id number] Univers 00:00:00 00:00:00 Only [place] 350.1.13.10 ity [facility] [place] [facility] 4.2.7.2.686 Jorge Luis as [id number] [address] 2020-02-04 2020-02-04 Telephone Mario [facility] 1.2.840.114 [id number] Univers 00:00:00 00:00:00 Saloni [facility] 350.1.13.10 it y of Surgical 4.2.7.2.686 Jorge Luis as Specialti [id number] Ma dical es 198 [facility] 2020-02-03 2020-02-03 Diego [facility] 1.2.079.678 [id number] Univers 00:00:00 00:00:00 [facility] Health 350.1.13.10 it y of Surgical 4.2.7.2.686 Jorge Luis as Specialti [id number] Ma dical es 198 [facility] 2020-01-22 2020-01-22 [facility] [id number] [id number] Univers 00:00:00 00:00:00 [facility] Health 350.1.13.10 it y of Surgical 4.2.7.2.686 Jorge Luis as Specialti [phone] Ma dical es 198 [facility] 2020-01-22 2020-01-22 [facility] 1.2.523.246 [id number] Univers 00:00:00 00:00:00 [facility] Health 350.1.13.10 it y of Surgical 4.2.7.2.686 Jorge Luis as Specialti [id number] Ma dical es 198 [facility] 2020-01-21 2020-01-21 Orders Doctor TIFFANI 1.2.840.114 [id number] Univers 00:00:00 00:00:00 Only [place] 350.1.13.10 ity [facility] [place] [facility] 4.2.7.2.686 Jorge Luis as [id number] [address] 2020-01-20 2020-01-20 Office [facility] 1.2.840.114 [id number] Univers 09:59:27 16:42:22 Visit [facility] 350.1.13.10 it y of Surgical 4.2.7.2.686 Jorge Luis as Specialti [id number] Ma dical es 198 [facility] 2020-01-20 2020-01-20 Outpatient Ric BHARDWAJ [facility] [id number] Univers 10:00:00 10:00:00 BON ity [facility] 2020-01-20 2020-01-20 Outpatient Ric BHARDWAJ [facility] [id number] Univers 10:00:00 10:00:00 BON ity [facility] 2020-01-01 2020-01-01 Office [facility] 1.2.840.114 [id number] Univers 08:15:23 08:50:41 Visit Bon [facility] 350.1.13.10 it y of Surgical 4.2.7.2.686 Jorge Luis as Specialti [id number] Ma dical es 198 [facility] 2020-01-01 2020-01-01 Outpatient [facility] [id number] Univers 08:15:00 08:15:00 BON [id number] ity [facility] 2020-01-01 2020-01-01 Outpatient Ric [facility] [id number] Univers 08:15:00 08:15:00 BON ity [facility] 2019-12-19 2019-12-19 Outpatient [facility] [id number] Univers 08:00:00 08:00:00 BON ity [facility] 2019-12-19 2019-12-19 Outpatient [facility] [id number] Univers 08:00:00 08:00:00 BON ity [facility] 2019-12-16 2019-12-16 Outpatient [facility] [id number] Univers 08:15:00 08:15:00 BON ity [facility] 2019-12-16 2019-12-16 Outpatient Ric [facility] [id number] Univers 08:15:00 08:15:00 [facility] 2019-12-04 2019-12-04 Office [facility] [id number] Univers 08:10:44 08:23:17 Visit Saloni [facility] 350.1.13.10 it y of Surgical 4.2.7.2.686 Jorge Luis as Specialti [phone] Ma dical es 198 [facility] 2019-12-04 2019-12-04 Out[facility] [id number] Univers 08:00:00 08:00:00 SALONI [facility] 2019-11-11 2019-11-11 Orders Doctor NIXON 1.2.840.114 [id number] [facility] 00:00:00 00:00:00 Only Unassigned[place] 350.1.13.[address] [place] [facility] 4.2.7.2.686 [facility] as [phone] [facility] 009 Branch Results Test Test Test Results Result Source Description Time Comments Comments MR Shoulder wo 2020-02- PROCEDURE [facility] [id number] INFORMATION:Exam: MR Right Michael 17:13:00 Upper [...] inferior spurring.Tucker Pham MD On 03/11/2020 11:46:55; [id number] by: Tucker Pham MDDictated Date/time: 03/11/20 11:46Electronically Signed by: Tucker Pham MD 03/11/2011:46FINAL REPORT
[2021-09-23] MEDS ORDERED: DIAZEPAM 5 MG TABLET ONE (19:51)
[2021-09-23] MEDS ORDERED: HYDROCODONE/APAP 5/325 MG TAB ONE (19:52)
--- NOTE | 2021-09-23 20:14 | RAD REPORT ---
EXAM DESCRIPTION: RAD - Lumbar Spine 3 Views - 09/23/2021 7:57 pm CLINICAL HISTORY: Fall;Lower back pain COMPARISON: CT ABD PELVIS W CONTRAST dated 11/02/2013 FINDINGS: A three-view lumbar spine examination was performed. Lumbar bodies are normal in height. No acute compression fracture. No lytic or blastic change identif iable. Approximately 7 mm anterior subluxation of L4 on L5 noted. This appears to be secondary to sev ere facet joint degenerative change. Pars defects are not identifiable. There is very slight retrolis thesis of L2 on L3 and L3 on L4. Facet degenerative change appears minimal at these 2 levels. L4-5 and L5-S1 disc space narrowing seen. Degenerative gas present in the L5-S1 disc space. Severe L5 -S1 facet joint degenerative changes are present. No pars defects identified. No significant SI joint abnormality. IMPRESSION: No compression fracture or acute lumbar spine finding. Advanced facet joint degenerative change at L4-5 and L5-S1 are present with degenerative disc disease at both these levels. Severe L4-5 facet degenerative change results in anterior L4 subluxation. Concerns for disc herniation, central canal abnormality or occult bone process can be addressed with MR imaging.
--- NOTE | 2021-09-23 20:46 | EDPHYS ---
Physician Documentation [facility] Name: Amy Segura Age: 56 yrs Sex: Female : 1965 Arrival Date: 09/23/2021 Time: 18:35 Bed 11 Private MD: ED Physician Saw Alarcon HPI: 09/23 20:07 This 56 yrs old Female presents to ER via Ambulatory with complaints of Fall Injury. ms3 20:07 Details of fall: The patient fell from an upright position, while standing. Onset: The ms3 symptoms/episode began/occurred acutely, 4.5 hour(s) ago. Associated injuries: The patient sustained injury to the low back, pain. Severity of symptoms: At their worst the symptoms were moderate, in the emergency department the symptoms are unchanged. 56-year-old female with past medical history of depression presents for fall that occurred 4 and half hours prior to arrival. Patient states she is having lower back pain that she rates a 7/10 and describes the pain as spasming in her lower back on the right side greater than left. Patient denies alleviating or inciting factors. Patient denies incontinence or numbness. Patient states the fall occurred while trying to lift a heavy box of papers and losing her balance.. Historical: - Allergies: 18:52 No Known Allergies; ab2 - PMHx: 18:52 Depression; ab2 - PSHx: 18:52 None; ab2 - Immunization history:: Adult Immunizations up to date. - Social history:: Smoking status: Patient denies any tobacco usage or history of. ROS: 20:07 Constitutional: Negative for fever, and chills. Eyes: Negative for injury, pain, ms3 redness, and discharge, Neck: Negative for injury, pain, and swelling, Cardiovascular: Negative for chest pain, and palpitations. Respiratory: Negative for shortness of breath, cough, wheezing, and pleuritic chest pain, Abdomen/GI: Negative for abdominal pain, nausea, vomiting, diarrhea, and constipation, Skin: Negative for injury, rash, and discoloration, Neuro: Negative for headache, weakness, numbness, tingling. Psych: Negative for depression, anxiety, suicide ideation, homicidal ideation, and hallucinations. 20:07 MS/extremity: Positive for tenderness, of the low back area. Exam: 20:07 Constitutional: This is a well developed, well nourished patient who is awake, alert, ms3 and in no acute distress. Neck: Trachea midline, no cervical lymphadenopathy. Supple, full range of motion without nuchal rigidity, or vertebral point tenderness. No Meningismus. Chest/axilla: Normal chest wall appearance and motion. Nontender with no deformity. Cardiovascular: Regular rate and rhythm with a normal S1 and S2. No gallops, murmurs, or rubs. Normal PMI, no JVD. No pulse deficits. Respiratory: Lungs have equal breath sounds bilaterally, clear to auscultation and percussion. No rales, rhonchi or wheezes noted. No increased work of breathing, no retractions or nasal flaring. Abdomen/GI: Soft, non-tender, with normal bowel sounds. No distension or tympany. No guarding or rebound. No evidence of tenderness throughout. Skin: Warm, dry with normal turgor. Normal color with no rashes, no lesions, and no evidence of cellulitis. Psych: Awake, alert, with orientation to person, place and time. Behavior, mood, and affect are within normal limits. 20:07 Back: pain, that is moderate, of the right low back, ROM is normal, normal spinal alignment noted, vertebral tenderness, is not appreciated. 20:07 Musculoskeletal/extremity: Extremities: all appear grossly normal, with no appreciated pain with palpation, Circulation is intact in all extremities. Sensation intact. Vital Signs: 18:50 BP 112 / 74; Pulse 77; Resp 17; Temp 98.1; Pulse Ox 96% on R/A; Weight 97.52 kg; Height ab2 5 ft. 9 in. (175.26 cm); Pain 7/10; 18:50 Body Mass Index 31.75 (97.52 kg, 175.26 cm) ab2 MDM: 19:34 Patient medically screened. ms3 20:07 Differential diagnosis: contusion, fracture, sprain, strain. ms3 04 19:34 Order name: Lumbar Spine (3 Views) XRAY; Complete Time: 20:30 ms3 Administered Medications: 20:03 Drug: HYDROcodone-acetaminophen 5 mg-325 mg 1 tabs Route: PO; ll3 20:03 Drug: Valium (diazepam) 5 mg Route: PO; ll3 Disposition Summary: 09/23/21 20:45 Discharge Ordered Location: Home ms3 Problem: new ms3 Symptoms: have improved ms3 Condition: Stable ms3 Diagnosis - Fall on same level from slipping, tripping and stumbling without subsequent ms3 striking against object - Low back pain ms3 - Muscle spasm of back ms3 Discharge Instructions: - Discharge Summary Sheet ms3 - Acute Back Pain, Adult ms3 Forms: - Medication Reconciliation Form ms3 - Thank You Letter ms3 - Antibiotic Education ms3 - Prescription Opioid Use ms3 Prescriptions: - Cyclobenzaprine 10 mg Oral Tablet - take 1 tablet by ORAL route every 8 hours As needed; 20 tablet; Refills: 0, ms3 Product Selection Permitted Signatures: Dispatcher [employer] EDMS Saw Alarcon, DO ms3 Tosin Wiggins, RN RN ll3 Kamlesh Ellison Angela, RN RN ag7 Corrections: (The following items were deleted from the chart) 19:02 18:59 Sacrum And Coccyx+[id number] ordered. EDMS EDMS 20:10 20:07 Constitutional: Negative for fever, and chills. Eyes: Negative for injury, pain, ms3 redness, and discharge, Neck: Negative for injury, pain, and swelling, Cardiovascular: Negative for chest pain, and palpitations. Respiratory: Negative for shortness of breath, cough, wheezing, and pleuritic chest pain, Abdomen/GI: Negative for abdominal pain, nausea, vomiting, diarrhea, and constipation, MS/Extremity: Negative for injury and deformity, Skin: Negative for injury, rash, and discoloration, Neuro: Negative for headache, weakness, numbness, tingling. Psych: Negative for depression, anxiety, suicide ideation, homicidal ideation, and hallucinations, ms3 20:10 20:07 MS/extremity: Positive for tenderness, of the low back area, Paraspinal mm ms3 tenderness right side, ms3
--- NOTE | 2021-09-23 20:46 | ER ---
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 Pt c/o low back pain. Coronavirus screen: Vaccine status: Patient reports being unvaccinated. Client denies travel out of the [place] in the last 14 days. At this time, the client does not indicate any symptoms associated with coronavirus-19. Ebola Screen: Patient negative for fever greater than or equal to 101.5 degrees Fahrenheit, and additional compatible Ebola Virus Disease symptoms Patient denies exposure to infectious person. Patient denies travel to an Ebola-affected area in the 21 days before illness onset. No symptoms or risks identified at this time. Initial Sepsis Screen: Does the patient meet any 2 criteria? No. Patient's initial sepsis screen is negative. Does the patient have a suspected source of infection? No. Patient's initial sepsis screen is negative. Risk Assessment: Do you want to hurt yourself or someone else? Patient reports no desire to harm self or others. Onset of symptoms is unknown. 18:50 Method Of Arrival: Ambulatory ab2 18:50 Acuity: BETY 4 ab2 Triage Assessment: 18:52 General: Appears in no apparent distress. uncomfortable, Behavior is calm, cooperative, ab2 appropriate for age. Pain: Complains of pain in low back area Pain currently is 7 out of 10 on a pain scale. Neuro: Level of Consciousness is awake, alert, obeys commands, Oriented to person, place, time, situation, Appropriate for age Rectifying Attendant are equal bilaterally Moves all extremities. Gait is steady. Cardiovascular: No deficits noted. Denies chest pain, shortness of breath, Patient's skin is warm and dry. Respiratory: Airway is patent Respiratory effort is even, unlabored, Respiratory pattern is regular, symmetrical. GI: No deficits noted. No signs and/or symptoms were reported involving the gastrointestinal system. : No deficits noted. No signs and/or symptoms were reported regarding the genitourinary system. Musculoskeletal: Reports pain in low back area. Historical: - Allergies: 18:52 No Known Allergies; ab2 - PMHx: 18:52 Depression; ab2 - PSHx: 18:52 None; ab2 - Immunization history:: Adult Immunizations up to date. - Social history:: Smoking status: Patient denies any tobacco usage or history of. Screenin:38 Abuse screen: Denies threats or abuse. Nutritional screening: No deficits noted. ag7 Tuberculosis screening: No symptoms or risk factors identified. 20:39 Fall Risk Fall in past 12 months (25 points). No secondary diagnosis (0 pts). No IV (0 ag7 pts). Ambulatory Aid- None/Bed Rest/Nurse Assist (0 pts). Gait- Normal/Bed Rest/Wheelchair (0 pts) Mental Status- Oriented to own ability (0 pts). Total Rendon Fall Scale indicates No Risk (0-24 pts). Assessment: 19:20 General: Appears in no apparent distress. well developed, Behavior is calm, ag7 cooperative. Pain: Complains of pain in back Pain does not radiate. Pain currently is 7 out of 10 on a pain scale. Quality of pain is described as aching, Pain began suddenly, Is continuous, Alleviated by nothing. Aggravated by repositioning. Neuro: Level of Consciousness is awake, alert, obeys commands, Oriented to Appropriate for age. Cardiovascular: Heart tones S1 S2 present Patient's skin is warm and dry. Respiratory: Airway is patent Trachea midline Respiratory effort is even, unlabored, Respiratory pattern is regular, symmetrical, Breath sounds are clear bilaterally. Musculoskeletal: Reports pain in lumbar area. Vital Signs: 18:50 BP 112 / 74; Pulse 77; Resp 17; Temp 98.1; Pulse Ox 96% on R/A; Weight 97.52 kg; Height ab2 5 ft. 9 in. (175.26 cm); Pain 7/10; 18:50 Body Mass Index 31.75 (97.52 kg, 175.26 cm) ab2 ED Course: 18:35 Patient arrived in ED. mr 18:52 Triage completed. ab2 18:53 Arm band placed on right wrist. ab2 19:12 Saw Alarcon DO is Attending Physician. ms3 19:59 Lumbar Spine (3 Views) XRAY In Process Unspecified. EDMS 20:39 Patient has correct armband on for positive identification. Placed in gown. Bed in low ag7 position. Call light in reach. 20:59 Kaya Espitia, RN is Primary Nurse. ag7 21:08 No provider procedures requiring assistance completed. Patient did not have IV access ll3 during this emergency room visit. Administered Medications: 20:03 Drug: HYDROcodone-acetaminophen 5 mg-325 mg 1 tabs Route: PO; ll3 20:03 Drug: Valium (diazepam) 5 mg Route: PO; ll3 Outcome: 20:45 Discharge ordered by MD. ms3 21:08 Discharged to home ambulatory. ll3 21:08 Condition: stable 21:08 Discharge instructions given to patient, Instructed on discharge instructions, follow up and referral plans. medication usage, Demonstrated understanding of instructions, follow-up care, medications, Prescriptions given X 1. 21:08 Patient left the ED. ll3 Signatures: Dispatcher [employer] EDTN Terri Thomas Saw Alarcon DO DO ms3 Tosin Wiggins, RN RN ll3 Kamlesh Ellison ab2 Kaya Espitia, RN RN ag7
[2021-09-24 04:18] VITALS: BP 112/74; TEMP 98.1; O2SAT 96
== END 2021-09-23 21:08 | disposition home or self-care (01) ==
LOC: ER 18:32
DX: M62.830 Muscle spasm of back (principal); W18.30XA Fall on same level, unspecified, initial encounter
CPT/HCPCS: 72100; 99283

== ENCOUNTER 2021-11-21 20:45 | Emergency (ER) | payer OTHER ==
--- OUTSIDE RECORDS SUMMARY | 2021-11-21 20:51 | XMS REPORT | Continuity of Care Document ---
:1965 Author Organization [facility] t Address [address] [place] [place] [address] Care Team Providers Name Role Phone No Primary Care Physician Unavailable ROBBIE Attending Clinician Unavailable MCKENZIE_NORMAN_Richard_Zain Attending Clinician Unavailable Matias Ramos Attending Clinician [phone] MCKENZIE_FRANCISCO_Yang_Arleen Attending Clinician Unavailable Frankie Soria Attending Clinician [phone] USHA AVALOS Attending Clinician Unavailable Mitchel WU Attending Clinician Unavailable Jose MARTIN Attending Clinician Unavailable CELIO Attending Clinician Unavailable ARTHUR Attending Clinician Unavailable CARMELA CASEY Attending Clinician Unavailable Doctor Unassigned, Name Attending Clinician Unavailable ISREAL DAWSON Attending Clinician Unavailable Ernesot Rausch Attending Clinician Jose Martin MD Attending Clinician Ernesto BHARDWAJ Attending Clinician Unavailable TITI_Richard_Zain Admitting Clinician Unavailable VICKI_Leanne Admitting Clinician Unavailable Payers Payer Name Policy Type Policy Number Effective Date Expiration Date Ernesto leonard WEBTPA [id number] 2020 00:00:00 WEB-TPA - [employer]ET[employer] [id number] 2021 (PPO) 00:00:00 [employer]ETNA [id number] 2017 00:00:00 Problems Condition Condition Condition Status Onset Resolution Last Treating Co mments Source Name Details Category Date Date Treatment Clinician Date 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 [facility] tear of tear of 1-11 Health lateral lateral 00:00: meniscus meniscus 00 [...] nivers pain pain 0-28 ity of 00:00: [address] Rotator Rotator Problem Active [facility] cuff cuff Physici strain, strain, ans right, right, initial initial encounter encounter History of History of Problem Resolve [facility] arthritis arthritis d Phys ici ans History of History of Problem Resolve [facility] depression depression d Ph ysici ans History of History of Problem Resolve [facility] Gallbladde Gallbladde d Ph ysici r problem r problem ans History of History of Problem Resolve [facility] pancreatit pancreatit d Ph ysici is is ans Shoulder Shoulder Problem Active [facility] pain, pain, Physici right right ans Complete Complete Problem Active [facility] tear of tear of Physici right right ans rotator rotator cuff cuff Allergies, Adverse Reactions, Alerts Allergy Allergy Status Severity Reaction(s) Onset Inactive Treating Comm ents Source Name Type Date Date Clinician NO KNOWN Drug Active Univers ALLERGIE Class ity of [facility] Family History Family Member Diagnosis Comments Start Date Stop Date Source Unknown Family Family history of Other [facility] Member malignant neoplasm Unknown Family Family history of Other [facility] Member diabetes mellitus Unknown Family Family history of Other [facility] Member Heart trouble Unknown Family Family history of Other [facility] Member arthritis Social History Social Habit Start Date Stop Date Quantity Comments Source Exposure to Not sure [facility] SARS-CoV-2 (event) History [facility] o f Alcohol Std [place] [facility] History [facility] o f Alcohol Binge [place] [facility] Alcohol intake 2021-05-26 2021-05-26 Lifetime [facility] 00:00:00 00:00:00 non-drinker (finding) Tobacco use and 2021-04-13 2021-04-13 Smokeless tobacco [facility] exposure 00:00:00 00:00:00 non-user History [facility] 2019-12-04 2019-12-04 1 [facility] o f [facility] [place] Sex [facility]igned At [birth year] [facility] 00:00:00 00:00:00 Smoking Status Start Date Stop Date Source Never smoked tobacco [facility] Medications Ordered Filled Start Stop Current Ordering Indication Dosage Frequency Signature Comments Components Source Medication Medication Date Date Medication? Clinician (SIG) Name Name omeprazole 2020-06 Yes [id number] TAKE 1 UT (PriLOSEC) 1-18 9109 [facility] [address] 00:00: MOUTH 1 capsule 00 TIME EACH DAY. DO NOT CRUSH, CHEW, OR SPLIT. TAKE W/ NSAID omeprazole 2020-06 Yes [id number] TAKE 1 UT (PriLOSEC) 1-18 9109 [facility]SULE [facility] [address] 00:00: MOUTH 1 capsule 00 TIME EACH DAY. DO NOT CRUSH, CHEW, OR SPLIT. TAKE W/ NSAID aspirin 325 2020-06- No [id number] 325mg QD Take 1 UT MG EC 07-03 9108 tablet Health tablet 00:00: 05:59 (325 mg 00 :00 total) by mouth 1 (one) time each day. aspirin 325 2020-06- No [id number] 325mg QD Take 1 UT MG EC 07-03 9108 tablet Health tablet 00:00: 05:59 (325 mg 00 :00 total) by mouth 1 (one) time each day. naloxone 2020-06- No [id number] .4mg Administer UT (Narcan) 2 07-03 9109 0.4 mL Health MG/2ML 00:00: 05:59 (0.4 mg injection 00 :00 total) into affected nostril(s) if needed for opioid reversal. May repeat every 2-3 minutes as needed until medical assistance available. aspirin 325 2020-06- No [id number] 325mg QD Take 1 UT MG EC 07-03 9108 tablet Health tablet 00:00: 05:59 (325 mg 00 :00 total) by mouth 1 (one) time each day. naloxone 2020-06- No [id number] .4mg Administer UT (Narcan) 2 07-03 9109 0.4 mL Health MG/2ML 00:00: 05:59 (0.4 mg injection 00 :00 total) into affected nostril(s) if needed for opioid reversal. May repeat every 2-3 minutes as needed until medical assistance available. aspirin 325 2020-06- No [id number] 325mg QD Take 1 UT MG EC 07-03 9108 tablet Health tablet 00:00: 05:59 (325 mg 00 :00 total) by mouth 1 (one) time each day. naloxone 2020-06 No [id number] .4mg Administer UT (Narcan) 2 07-03 9109 0.4 mL Health MG/2ML 00:00: 05:59 (0.4 mg injection 00 :00 total) into affected nostril(s) if needed for opioid reversal. May repeat every 2-3 minutes as needed until medical assistance available. HYDROcodone 2020-06- No [id number] 1{tbl} Take 1 UT -acetaminop -16 07-03 9109 tablet by [facility] ([place]) 00:00: 05:59 mouth 10-325 MG 00 :00 every 4 tablet (four) hours if needed for severe pain (Pain). HYDROcodone 2020-06- No [id number] 1{tbl} Take 1 UT -acetaminop -16 07-03 9109 tablet by [facility] ([place]) 00:00: 05:59 mouth 10-325 MG 00 :00 every 4 tablet (four) hours if needed for severe pain (Pain). HYDROcodone 2020-06 No [id number] 1{tbl} Take 1 UT -acetaminop 07-0309 tablet by He alth hen ([place]) 00:00: 05:59 mouth 10-325 MG 00 :00 every 4 tablet (four) hours if needed for severe pain (Pain). ondansetron 2020-06- No [id number] 4mg Take 1 UT ODT (Zofran 07-03 9108 tablet (4 He alth ODT) 4 MG 00:00: 05:59 mg total) disintegrat 00 :00 by mouth ing tablet every 8 (eight) hours if needed for nausea or vomiting for up to 7 days. sulfamethox 2020-06- No [id number] 1{tbl} Q.5D Take 1 UT azole-trime 07-03 9108 tablet by He alth thoprim 00:00: 05:59 mouth 2 (Bactrim 00 :00 (two) DS) 800-160 times a MG tablet day for 7 days. ondansetron 2020-06- No [id number] 4mg Take 1 UT ODT (Zofran 07-03 9108 tablet (4 He alth ODT) 4 MG 00:00: 05:59 mg total) disintegrat 00 :00 by mouth ing tablet every 8 (eight) hours if needed for nausea or vomiting for up to 7 days. sulfamethox 2020-06- No [id number] 1{tbl} Q.5D Take 1 UT azole-trime 07-03 9108 tablet by He alth thoprim 00:00: 05:59 mouth 2 (Bactrim 00 :00 (two) DS) 800-160 times a MG tablet day for 7 days. ondansetron 2020-06- No [id number] 4mg Take 1 UT ODT (Zofran 07-03 9108 tablet (4 He alth ODT) 4 MG 00:00: 05:59 mg total) disintegrat 00 :00 by mouth ing tablet every 8 (eight) hours if needed for nausea or vomiting for up to 7 days. sulfamethox 2020-06- No [id number] 1{tbl} Q.5D Take 1 UT azole-trime 07-03 9108 tablet by He alth thoprim 00:00: 05:59 mouth 2 (Bactrim 00 :00 (two) DS) 800-160 times a MG tablet day for 7 days. meloxicam 2020-06- No [id number] 7.5mg Take 1 UT (Mobic) 7.5 06-22 9109 tablet Healt h MG tablet 00:00: 05:59 (7.5 mg 00 :00 total) by mouth 1 (one) time each day if needed (pain). meloxicam 2020-06- No [id number] 7.5mg Take 1 UT (Mobic) 7.5 06-22 9109 tablet Healt h MG tablet 00:00: 05:59 (7.5 mg 00 :00 total) by mouth 1 (one) time each day if needed (pain). meloxicam 2020-06- No [id number] 7.5mg Take 1 UT (Mobic) 7.5 06-22 9109 tablet Healt h MG tablet 00:00: 05:59 (7.5 mg 00 :00 total) by mouth 1 (one) time each day if needed (pain). meloxicam 2020-06- No [id number] 7.5mg Take 1 UT (Mobic) 7.5 06-22 9109 tablet Healt h MG tablet 00:00: 05:59 (7.5 mg 00 :00 total) by mouth 1 (one) time each day if needed (pain). meloxicam 2020-06- No [id number] 7.5mg Take 1 UT (Mobic) 7.5 06-22 9109 tablet Healt h MG tablet 00:00: 05:59 (7.5 mg 00 :00 total) by mouth 1 (one) time each day if needed (pain). meloxicam 2020-06- No [id number] 7.5mg Take 1 UT (Mobic) 7.5 06-22 9109 tablet Healt h MG tablet 00:00: 05:59 (7.5 mg 00 :00 total) by mouth 1 (one) time each day if needed (pain). meloxicam 2020-06- No [id number] 7.5mg Take 1 UT (Mobic) 7.5 06-22 12 9109 tablet Healt h MG tablet 00:00: 05:59 (7.5 mg 00 :00 total) by mouth 1 (one) time each day if needed (pain). methylPREDN 2020-06- No [id number] 4mg Take 1 UT ISolone 0-28 04-15 9108 tablet (4 Health (Medrol 00:00: 04:59 mg total) Dospak) 4 00 :00 by mouth 1 MG tablets (one) time for 1 dose. Use as directed by package instructio ns valACYclovi 2020-06 Yes valacyclov UT r (Valtrex) [...] ADMINISTER ED BY PHARMACIST FOR IMMUNIZATI ON ACYclovi 2020-06 Yes valacyclov UT r (Valtrex) 0-27 ir 1 gram Hea [facility]th 1 g tablet 15:20: tablet 10 TAKE 1 TABLET BY MOUTH EVERY DAY zoster 2020-06 Yes Shingrix UT vaccine-rec 027 (PF) 50 Healt h ombinant 15:20: mcg/0.5 mL adjuvanted 10 intramuscu (Shingrix) lar 50 suspension MCG/0.5ML , kit TO vaccine BE ADMINISTER ED BY PHARMACIST FOR IMMUNIZATI ON ACYclovi 2020-06 Yes valacyclov UT r (Valtrex) 0-27 ir 1 gram Hea [facility]th 1 g tablet 15:20: tablet 10 TAKE 1 TABLET BY MOUTH EVERY DAY zoster 2020-06 Yes Shingrix UT vaccine-rec 027 (PF) 50 Healt h ombinant 15:20: mcg/0.5 mL adjuvanted 10 intramuscu (Shingrix) lar 50 suspension MCG/0.5ML , kit TO vaccine BE ADMINISTER ED BY PHARMACIST FOR IMMUNIZATI ON ACYclovi 2020-06 Yes valacyclov UT r (Valtrex) [...] AREA TWICE A DAY omeprazole 2020-06- No [id number] 20mg QD Take 1 UT OTC 005-14 9109 tablet (20 Health (PriLOSEC 00:00: 05:59 mg total) OTC) 20 MG 00 :00 by mouth 1 EC tablet (one) time each day. Do not crush, chew, or split. Take w/ NSAID Diclofenac 2020-06- No [id number] Q.11216258 Apply UT Sodium 0- 9109 [id number] topically H ealth (Voltaren) 00:00: 05:59 3D 3 (three) 1 % 00 :00 times a external day if gel needed (pain). Apply 4 grams to affected area not to exceed 16 grams every day omeprazole 2020-06- No [id number] 20mg QD Take 1 UT OTC 005-14 9109 tablet (20 Health (PriLOSEC 00:00: 05:59 mg total) OTC) 20 MG 00 :00 by mouth 1 EC tablet (one) time each day. Do not crush, chew, or split. Take w/ NSAID Diclofenac 2020-06- No [id number] Q.03236315 Apply UT Sodium 0-14 05- 9109 [id number] topically H ealth (Voltaren) 00:00: 05:59 3D 3 (three) 1 % 00 :00 times a external day if gel needed (pain). Apply 4 grams to affected area not to exceed 16 grams every day omeprazole 2020-06- No [id number] 20mg QD Take 1 UT OTC 0-27 11- 9109 tablet (20 Health (PriLOSEC 00:00: 05:59 mg total) OTC) 20 MG 00 :00 by mouth 1 EC tablet (one) time each day. Do not crush, chew, or split. Take w/ NSAID Diclofenac 2020-06- No [id number] Q.[id number] Apply UT Sodium 0-27 11-27 9109 [id number] topically H ealth (Voltaren) 00:00: 05:59 3D 3 (three) 1 % 00 :00 times a external day if gel needed (pain). Apply 4 grams to affected area not to exceed 16 grams every day omeprazole 2020-06- No [id number] 20mg QD Take 1 UT OTC 0-14 05- 9109 tablet (20 Health (PriLOSEC 00:00: 05:59 mg total) OTC) 20 MG 00 :00 by mouth 1 EC tablet (one) time each day. Do not crush, chew, or split. Take w/ NSAID Diclofenac 2020-06- No [id number] Q.[id number] Apply UT Sodium 0-27 11- 9109 [id number] topically H ealth (Voltaren) 00:00: 05:59 3D 3 (three) 1 % 00 :00 times a external day if gel needed (pain). Apply 4 grams to affected area not to exceed 16 grams every day omeprazole 2020-06- No [id number] 20mg QD Take 1 UT OTC 0-27 11- 9109 tablet (20 Health (PriLOSEC 00:00: 05:59 mg total) OTC) 20 MG 00 :00 by mouth 1 EC tablet (one) time each day. Do not crush, chew, or split. Take w/ NSAID Diclofenac 2020-06- No [id number] Q.[id number] Apply UT Sodium 0-27 11-27 9109 [id number] topically H ealth (Voltaren) 00:00: 05:59 3D 3 (three) 1 % 00 :00 times a external day if gel needed (pain). Apply 4 grams to affected area not to exceed 16 grams every day omeprazole 2020-06- No [id number] 20mg QD Take 1 UT OTC 0-14 05- 9109 tablet (20 Health (PriLOSEC 00:00: 05:59 mg total) OTC) 20 MG 00 :00 by mouth 1 EC tablet (one) time each day. Do not crush, chew, or split. Take w/ NSAID Diclofenac 2020-06- No [id number] Q.[id number] Apply UT Sodium 0-27 11- 9109 [id number] topically H ealth (Voltaren) 00:00: 05:59 3D 3 (three) 1 % 00 :00 times a external day if gel needed (pain). Apply 4 grams to affected area not to exceed 16 grams every day Diclofenac 2020-06- No [id number] Q.45778057 Apply UT Sodium 0-27 11- 9109 [id number] topically H ealth (Voltaren) 00:00: 05:59 3D 3 (three) 1 % 00 :00 times a external day if gel needed (pain). Apply 4 grams to affected area not to exceed 16 grams every day Diclofenac 2020-06- No [id number] Q.[id number] Apply UT Sodium 0-27 11- 9109 [id number] topically H ealth (Voltaren) 00:00: 05:59 3D 3 (three) 1 % 00 :00 times a external day if gel needed (pain). Apply 4 grams to affected area not to exceed 16 grams every day omeprazole 2020-06- No [id number] 20mg QD Take 1 UT OTC 0-14 05- 9109 tablet (20 Health (PriLOSEC 00:00: 05:59 mg total) OTC) 20 MG 00 :00 by mouth 1 EC tablet (one) time each day. Do not crush, chew, or split. Take w/ NSAID Diclofenac 2020-06- No [id number] Q.[id number] Apply UT Sodium 0-27 - 9109 [id number] topically H ealth (Voltaren) 00:00: 05:59 3D 3 (three) 1 % 00 :00 times a external day if gel needed (pain). Apply 4 grams to affected area not to exceed 16 grams every day meloxicam 2020-06- No [id number] 7.5mg Take 1 UT (Mobic) 7.5 05-14 9109 tablet Healt h MG tablet 00:00: 05:59 (7.5 mg 00 :00 total) by mouth 1 (one) time each day if needed (pain). omeprazole 2020-06- No [id number] 20mg QD Take 1 UT OTC 05-14 9109 tablet (20 Health (PriLOSEC 00:00: 05:59 mg total) OTC) 20 MG 00 :00 by mouth 1 EC tablet (one) time each day. Do not crush, chew, or split. Take w/ NSAID Diclofenac 2020-06- No [id number] Q.[id number] Apply UT Sodium 05-14 9109 [id number] topically H ealth (Voltaren) 00:00: 05:59 3D 3 (three) 1 % 00 :00 times a external day if gel needed (pain). Apply 4 grams to affected area not to exceed 16 grams every day meloxicam 2020-06- No [id number] 7.5mg Take 1 UT (Mobic) 7.5 05-14 9109 tablet Healt h MG tablet 00:00: 05:59 (7.5 mg 00 :00 total) by mouth 1 (one) time each day if needed (pain). omeprazole 2020-06- No [id number] 20mg QD Take 1 UT OTC 05-14 9109 tablet (20 Health (PriLOSEC 00:00: 05:59 mg total) OTC) 20 MG 00 :00 by mouth 1 EC tablet (one) time each day. Do not crush, chew, or split. Take w/ NSAID Diclofenac 2020-06- No [id number] Q.[id number] Apply UT Sodium 005-14 9109 [id number] topically H ealth (Voltaren) 00:00: 05:59 3D 3 (three) 1 % 00 :00 times a external day if gel needed (pain). Apply 4 grams to affected area not to exceed 16 grams every day omeprazole 2020-06- No [id number] 20mg QD Take 1 UT OTC 05-0509 tablet (20 Health (PriLOSEC 00:00: 00:00 mg total) OTC) 20 MG 00 :00 by mouth 1 EC tablet (one) time each day. Do not crush, chew, or split. Take w/ NSAID meloxicam 2020-06- No [id number] 7.5mg Take 1 UT (Mobic) 7.5 04-22 [...] 300 MG 00 24 hr tablet FLUoxetine Yes UT (PROzac) 40 8-24 Health MG capsule 00:00: 00 buPROPion 0 Yes UT XL 8-24 [...] 8-24 Health MG capsule 00:00: 00 chlorhexidi 2019- Yes UT ne 2-29 Health (Peridex) 00:00: [...] Meloxicam Meloxicam 2019-06 Yes RANJIT TAKE 1 UT 15 MG Oral 15 MG Oral 1-12 CELIO TABLET BY Physici Tablet Tablet 00:00: M.D. MOUTH ans 00 EVERY DAY NEEDED Tylenol 8 Tylenol 8 2019-0 Yes RANJIT TAKE 1 UT Hour Hour 9-28 CELIO TABLET BY Physici Arthritis Arthritis 00:00: M.D. MOUTH an s Pain 650 MG Pain 650 MG 00 EVERY 4-6 Oral Tablet Oral Tablet HOURS Extended Extended NEEDED FOR Release Release PAIN traMADol traMADol 2019-0 Yes RANJIT TAKE 1 UT HCl - 50 MG HCl - 50 MG 9- CELIO TABLET Physici Oral Tablet Oral Tablet 00:00: M.D. EVERY 4 TO ans 00 6 HOURS NEEDED. Cyclobenzap Cyclobenzap 2019-0 Yes RANJIT Q0.3333D TAKE 1 UT rine HCl - rine HCl - 9- CELIO TABLET 3 Physici 5 MG Oral 5 MG Oral 00:00: M.D. TIMES an s Tablet Tablet 00 DAILY NEEDED. diclofenac 2020-0 Yes 1{tbl} Take 1 UT (Voltaren) 9-15 tablet by [facility] th 75 MG EC 00:00: mouth 2 tablet 00 (two) times a day with meals. diclofenac 2020-0 Yes 1{tbl} Take 1 UT (Voltaren) 9-15 tablet by [facility] th 75 MG EC 00:00: mouth 2 tablet 00 (two) times a day with meals. diclofenac 2020-0 Yes 1{tbl} Take 1 UT (Voltaren) 9-15 tablet by [facility] th 75 MG EC 00:00: mouth 2 tablet 00 (two) times a day with meals. diclofenac 2020-0 Yes 1{tbl} Take 1 UT (Voltaren) 9-15 tablet by [facility] th 75 MG EC 00:00: mouth 2 tablet 00 (two) times a day with meals. diclofenac 2020-0 Yes 1{tbl} Take 1 UT (Voltaren) 9-15 tablet by [facility] 75 MG EC 00:00: mouth 2 tablet 00 (two) times a day with meals. diclofenac 2020-0 Yes 1{tbl} Take 1 UT (Voltaren) 9-15 tablet by [facility] 75 MG EC 00:00: mouth 2 tablet 00 (two) times a day with meals. diclofenac 2020-0 Yes 1{tbl} Take 1 UT (Voltaren) 9-15 tablet by [facility] th 75 MG EC 00:00: mouth 2 tablet 00 (two) times a day with meals. diclofenac 2020-0 Yes 1{tbl} Take 1 UT (Voltaren) 9-15 tablet by [facility] 75 MG EC 00:00: mouth 2 tablet 00 (two) times a day with meals. diclofenac 2020-0 Yes 1{tbl} Take 1 UT (Voltaren) 9-15 tablet by [facility] 75 MG EC 00:00: mouth 2 tablet 00 (two) times a day with meals. diclofenac 2020-0 Yes 1{tbl} Take 1 UT (Voltaren) 9-15 tablet by [facility] th 75 MG EC 00:00: mouth 2 tablet 00 (two) times a day with meals. DICLOFENAC 2020-0 Yes [id number] TAKE 1 Univers 75 mg EC 9-15 TABLET BY ity of tablet 00:00: MOUTH [place] 00 TWICE A Medical DAY WITH A Branch MEAL diclofenac 2020-0 Yes 1{tbl} Take 1 UT (Voltaren) 9-15 tablet by Heal th 75 MG EC 00:00: mouth 2 tablet 00 (two) times a day with meals. diclofenac 2020-0 Yes 1{tbl} Take 1 UT (Voltaren) 9-15 tablet by Heal th 75 MG EC 00:00: mouth 2 tablet 00 (two) times a day with meals. MELOXICAM 2020-0 Yes [id number] TAKE 1 Univers 15 mg 8-20 9102 TABLET BY ity of tablet 00:00: MOUTH [place] 00 EVERY DAY Medical Branch MELOXICAM 2020-0 Yes [id number] TAKE 1 Univers 15 mg 8-20 9102 TABLET BY ity of tablet 00:00: MOUTH [place] 00 EVERY DAY Medical Branch methylPREDN 2020-0 Yes [id number] 84mg Take 21 Univers ISolone 8-20 tablets by ity of (MEDROL, 00:00: mouth [place] JOSEFA,) 4 mg 00 SEE-INSTRU Med ical tablets CTIONS. Branch follow package directions MELOXICAM 2020-0 Yes [id number] TAKE 1 Univers 15 mg 8-20 9102 TABLET BY ity of tablet 00:00: MOUTH [place] 00 EVERY DAY Medical Branch methylPREDN 2020-0 Yes [id number] 84mg Take 21 Univers ISolone 8-20 tablets by ity of (MEDROL, 00:00: mouth [place] JOSEFA,) 4 mg 00 SEE-INSTRU Med ical tablets CTIONS. Branch follow package directions MELOXICAM 2020-0 Yes [id number] TAKE 1 Univers 15 mg 8-20 9102 TABLET BY ity of tablet 00:00: MOUTH [place] 00 EVERY DAY Medical Branch methylPREDN 2020-0 Yes [id number] 84mg Take 21 Univers ISolone 8-20 tablets by ity of (MEDROL, 00:00: mouth [place] JOSEFA,) 4 mg 00 SEE-INSTRU Med ical tablets CTIONS. Branch follow package directions MELOXICAM 2020-0 Yes [id number] TAKE 1 Univers 15 mg 8-20 9102 TABLET BY ity of tablet 00:00: MOUTH [place] 00 EVERY DAY Medical Branch methylPREDN 2020-0 Yes [id number] 84mg Take 21 Univers ISolone 8-20 tablets by ity of (MEDROL, 00:00: mouth [place] JOSEFA,) 4 mg 00 SEE-INSTRU Med ical tablets CTIONS. Branch follow package directions MELOXICAM 2020-0 Yes [id number] TAKE 1 Univers 15 mg 8-20 9102 TABLET BY ity of tablet 00:00: MOUTH [place] 00 EVERY DAY Medical Branch methylPREDN 2020-0 Yes [id number] 84mg Take 21 Univers ISolone 8-20 tablets by ity of (MEDROL, 00:00: mouth [place] JOSEFA,) 4 mg 00 SEE-INSTRU Med ical tablets CTIONS. Branch follow package directions MELOXICAM 2020-0 Yes [id number] TAKE 1 Univers 15 mg 8-20 9102 TABLET BY ity of tablet 00:00: MOUTH [place] 00 EVERY DAY Medical Branch methylPREDN 2020-0 Yes [id number] 84mg Take 21 Univers ISolone 8-20 tablets by ity of (MEDROL, 00:00: mouth [place] JOSEFA,) 4 mg 00 SEE-INSTRU Med ical tablets CTIONS. Branch follow package directions MELOXICAM 2020-0 Yes [id number] TAKE 1 Univers 15 mg 8-20 9102 TABLET BY ity of tablet 00:00: MOUTH [place] EVERY DAY Medical Branch methylPREDN 2020-0 Yes [id number] 84mg Take 21 Univers ISolone 8-20 tablets by ity of (MEDROL, 00:00: mouth [place] JOSEFA,) 4 mg 00 SEE-INSTRU Med ical tablets CTIONS. Branch follow package directions MELOXICAM 2020-0 Yes [id number] TAKE 1 Univers 15 mg 8-20 9102 TABLET BY ity of tablet 00:00: MOUTH [place] 00 EVERY DAY Medical Branch methylPREDN 2020-0 Yes [id number] 84mg Take 21 Univers ISolone 8-20 tablets by ity of (MEDROL, 00:00: mouth [place] JOSEFA,) 4 mg 00 SEE-INSTRU Med ical tablets CTIONS. Branch follow package directions MELOXICAM 2020-0 Yes [id number] TAKE 1 Univers 15 mg 8-20 9102 TABLET BY ity of tablet 00:00: MOUTH [place] 00 EVERY DAY Medical Branch methylPREDN 2020-0 Yes [id number] 84mg Take 21 Univers ISolone 8-20 tablets by ity of (MEDROL, 00:00: mouth [place] JOSEFA,) 4 mg 00 SEE-INSTRU Med ical tablets CTIONS. Branch follow package directions diclofenac 2020-0 2020- No [id number] 75mg Take 1 Univers 75 mg EC 8-20 09-20 tablet by ity o f tablet 00:00: 04:59 mouth 2 [place] 00 :00 (two) Medical times Branch daily with meals for 30 days. diclofenac 2020-0 2020- No [id number] 75mg Take 1 Univers 75 mg EC 8-20 09-20 tablet by ity o f tablet 00:00: 04:59 mouth 2 [place] 00 :00 (two) Medical times Branch daily with meals for 30 days. diclofenac 2020-0 2020- No [id number] 75mg Take 1 Univers 75 mg EC 8-20 09-20 tablet by ity o f tablet 00:00: 04:59 mouth 2 [place] 00 :00 (two) Medical times Branch daily with meals for 30 days. diclofenac 2020-0 2020- No [id number] 75mg Take 1 Univers 75 mg EC 8-20 09-20 tablet by ity o f tablet 00:00: 04:59 mouth 2 [place] 00 :00 (two) Medical times Branch daily with meals for 30 days. diclofenac 2020-0 2020- No [id number] 75mg Take 1 Univers 75 mg EC 8-20 09-20 tablet by ity o f tablet 00:00: 04:59 mouth 2 [place] 00 :00 (two) Medical times Branch daily with meals for 30 days. diclofenac 2020-0 2020- No [id number] 75mg Take 1 Univers 75 mg EC 8-20 09-20 tablet by ity o f tablet 00:00: 04:59 mouth 2 [place] 00 :00 (two) Medical times Branch daily with meals for 30 days. diclofenac 2020-0 2020- No [id number] 75mg Take 1 Univers 75 mg EC 8-20 09-20 tablet by ity o f tablet 00:00: 04:59 mouth 2 [place] 00 :00 (two) Medical times Branch daily with meals for 30 days. diclofenac 2020-0 2020- No [id number] 75mg Take 1 Univers 75 mg EC 8-20 09-20 tablet by ity o f tablet 00:00: 04:59 mouth 2 [place] 00 :00 (two) Medical times Branch daily with meals for 30 days. diclofenac 2020-0 2020- No [id number] 75mg Take 1 Univers 75 mg EC 8-20 09-15 tablet by ity o f tablet 00:00: 00:00 mouth 2 [place] 00 :00 (two) Medical times Branch daily with meals for 30 days. diazePAM 2019-0 2020- No [id number] 10mg Take 1 U nivers (VALIUM) 10 [...] mg tablet 00:00: mouth [place] 00 daily. [facility] meloxicam 2019-0 2020- No 15mg Take 1 Unive rs (MOBIC) 15 8-10 08-20 tablet by ity of mg tablet 00:00: 00:00 mouth [place] 00 :00 daily. [facility] meloxicam 2020-0 2020- No 15mg Take 1 Unive rs (MOBIC) 15 8-10 08-20 tablet by ity of mg tablet 00:00: 00:00 mouth [place] 00 :00 daily. [facility] meloxicam 2019-0 2020- No [id number] 15mg Take 1 U nivers 15 mg 7-16 08-16 tablet by ity of tablet 00:00: 04:59 mouth [place] 00 :00 daily for Medical 30 days. [place] meloxicam 2019-0 2020- No [id number] 15mg Take 1 U nivers 15 mg 7-16 08-16 tablet by ity of tablet 00:00: 04:59 mouth [place] 00 :00 daily for Medical 30 days. [place] meloxicam 2019-0 2020- No [id number] 15mg Take 1 U nivers 15 mg 7-16 08-16 tablet by ity of tablet 00:00: 04:59 mouth [place] 00 :00 daily for Medical 30 days. [place] meloxicam 2020-0 2020- No [id number] 15mg Take 1 [facility]ivers 15 mg 7-16 08-16 tablet by ity of tablet 00:00: 04:59 mouth [place] 00 :00 daily for Medical 30 days. [place] meloxicam 2020-0 2020- No [id number] 15mg Take 1 U nivers 15 mg 7-16 08-16 tablet by ity of tablet 00:00: 04:59 mouth [place] 00 :00 daily for Medical 30 days. [place] meloxicam 2019-0 2020- No [id number] 15mg Take 1 U nivers 15 mg 7-16 08-16 tablet by ity of tablet 00:00: 04:59 mouth [place] 00 :00 daily for Medical 30 days. Branch meloxicam 2020-0 2020- No [id number] 15mg Take 1 U nivers 15 mg 7-16 08-16 tablet by ity of tablet 00:00: 04:59 mouth [place] 00 :00 daily for Medical 30 days. Branch meloxicam 2020-0 2020- No [id number] 15mg Take 1 [facility] nivers 15 mg 7-16 08-16 tablet by ity of tablet 00:00: 04:59 mouth [place] 00 :00 daily for Medical 30 days. Branch meloxicam 2020-0 2020- No [id number] 15mg Take 1 [facility]ivers 15 mg 7-16 08-16 tablet by ity of tablet 00:00: 04:59 mouth [place] 00 :00 daily for Medical 30 days. Branch methylPREDN 2020-0 Yes Take by Un siobhan [...] mouth ity of mg tablet 00:00: daily. [address] medroxyPROG 2020-0 Yes 10mg Take 10 mg Univers ESTERone 10 6-03 by mouth ity of mg tablet 00:00: daily. [address] medroxyPROG 2020-0 Yes 10mg Take 10 mg Univers ESTERone 10 6-03 by mouth ity of mg tablet 00:00: daily. [address] medroxyPROG 2020-0 Yes 10mg Take 10 mg Univers ESTERone 10 6-03 by mouth ity of mg tablet 00:00: daily. [place] [facility] medroxyPROG 2020-0 Yes 10mg Take 10 mg Univers ESTERone 10 6-03 by mouth ity of mg tablet 00:00: daily. [place] [facility] medroxyPROG 2020-0 Yes 10mg Take 10 mg Univers ESTERone 10 6-03 by mouth ity of mg tablet 00:00: daily. [place] [facility] medroxyPROG 2020-0 Yes 10mg Take 10 mg Univers ESTERone 10 6-03 by mouth ity of mg tablet 00:00: daily. [place] [facility] medroxyPROG 2020-0 Yes 10mg Take 10 mg Univers ESTERone 10 6-03 by mouth ity of mg tablet 00:00: daily. [place] [facility] medroxyPROG 2020-0 Yes 10mg Take 10 mg Univers ESTERone 10 6-03 by mouth ity of mg tablet 00:00: daily. [place] [facility] medroxyPROG 2020-0 Yes 10mg Take 10 mg Univers ESTERone 10 6-03 by mouth ity of mg tablet 00:00: daily. [place] [facility] medroxyPROG 2020-0 Yes 10mg Take 10 mg Univers ESTERone 10 6-03 by mouth ity of mg tablet 00:00: daily. [place] [facility] medroxyPROG 2020-0 Yes 10mg Take 10 mg Univers ESTERone 10 6-03 by mouth ity of mg tablet 00:00: daily. [place] [facility] medroxyPROG 2020-0 Yes 10mg Take 10 mg Univers ESTERone 10 6-03 by mouth ity of mg tablet 00:00: daily. [place] [facility] medroxyPROG 2020-0 Yes 10mg Take 10 mg Univers ESTERone 10 6-03 by mouth ity of mg tablet 00:00: daily. [place] [facility] medroxyPROG 2020-0 Yes 10mg Take 10 mg Univers ESTERone 10 6-03 by mouth ity of mg tablet 00:00: daily. [place] [facility] medroxyPROG 2020-0 Yes 10mg Take 10 mg Univers ESTERone 10 6-03 by mouth ity of mg tablet 00:00: daily. [place] [facility] medroxyPROG 2020-0 Yes 10mg Take 10 mg Univers ESTERone 10 6-03 by mouth ity of mg tablet 00:00: daily. [place] [facility] medroxyPROG 2020-0 Yes 10mg Take [...] of mg tablet 00:00: daily. Medical Branch cyclobenzap 2020-0 Yes TAKE 1 Univ ers rine 10 mg 5-26 TABLET BY ity of tablet 00:00: MOUTH AT [place] BEDTIME Medical NEEDED FOR Branch SPASM. WILL CAUSE SLEEPINESS , NO DRIVING cyclobenzap 2020-0 Yes TAKE 1 Univ ers rine 10 mg 5-26 TABLET BY ity of tablet 00:00: MOUTH AT [place] [address] BEDTIME Medical NEEDED FOR Branch SPASM. WILL CAUSE SLEEPINESS , NO DRIVING cyclobenzap 2020-0 Yes TAKE 1 Univ ers rine 10 mg 5-26 TABLET BY ity of tablet 00:00: MOUTH AT [place] BEDTIME Medical NEEDED FOR Branch SPASM. WILL CAUSE SLEEPINESS , NO DRIVING cyclobenzap 2020-0 Yes TAKE 1 Univ ers rine 10 mg 5-26 TABLET BY ity of tablet 00:00: MOUTH AT [place] BEDTIME Medical NEEDED FOR Branch SPASM. WILL CAUSE SLEEPINESS , NO DRIVING cyclobenzap 2020-0 Yes TAKE 1 Univ ers rine 10 mg 5-26 TABLET BY ity of tablet 00:00: MOUTH AT [place] 00 BEDTIME Medical NEEDED FOR Branch SPASM. WILL CAUSE SLEEPINESS , NO DRIVING cyclobenzap 2020-0 Yes TAKE 1 Univ ers rine 10 mg 5-26 TABLET BY ity of tablet 00:00: MOUTH AT [place] 00 BEDTIME Medical NEEDED FOR Branch SPASM. WILL CAUSE SLEEPINESS , NO DRIVING cyclobenzap 2020-0 Yes TAKE 1 Univ ers rine 10 mg 5-26 TABLET BY ity of tablet 00:00: MOUTH AT [place] [address] BEDTIME Medical NEEDED FOR Branch SPASM. WILL CAUSE SLEEPINESS , NO DRIVING cyclobenzap 2020-0 Yes TAKE 1 Univ ers rine 10 mg 5-26 TABLET BY ity of tablet 00:00: MOUTH AT [place] 00 BEDTIME Medical NEEDED FOR Branch SPASM. WILL CAUSE SLEEPINESS , NO DRIVING cyclobenzap 2020-0 Yes TAKE 1 Univ ers rine 10 mg 5-26 TABLET BY ity of tablet 00:00: MOUTH AT [place] 00 BEDTIME Medical NEEDED FOR Branch SPASM. WILL CAUSE SLEEPINESS , NO DRIVING cyclobenzap 2020-0 Yes TAKE 1 Univ ers rine 10 mg 5-26 TABLET BY ity of tablet 00:00: MOUTH AT [place] 00 BEDTIME Medical NEEDED FOR Branch SPASM. WILL CAUSE SLEEPINESS , NO DRIVING cyclobenzap 2020-0 Yes TAKE 1 Univ ers rine 10 mg 5-26 TABLET BY ity of tablet 00:00: MOUTH AT [place] 00 BEDTIME Medical NEEDED FOR Branch SPASM. WILL CAUSE SLEEPINESS , NO DRIVING cyclobenzap 2020-0 Yes TAKE 1 Univ ers rine 10 mg 5-26 TABLET BY ity of tablet 00:00: MOUTH AT [place] 00 BEDTIME Medical NEEDED FOR Branch SPASM. WILL CAUSE SLEEPINESS , NO DRIVING cyclobenzap 2020-0 Yes TAKE 1 Univ ers rine 10 mg 5-26 TABLET BY ity of tablet 00:00: MOUTH AT [place] 00 BEDTIME Medical NEEDED FOR Branch SPASM. WILL CAUSE SLEEPINESS , NO DRIVING cyclobenzap 2020-0 Yes TAKE 1 Univ ers rine 10 mg 5-26 TABLET BY ity of tablet 00:00: MOUTH AT [place] 00 BEDTIME Medical NEEDED FOR Branch SPASM. WILL CAUSE SLEEPINESS , NO DRIVING cyclobenzap 2020-0 Yes TAKE 1 Univ ers rine 10 mg 5-26 TABLET BY ity of tablet 00:00: MOUTH AT [place] 00 BEDTIME Medical NEEDED FOR Branch SPASM. WILL CAUSE SLEEPINESS , NO DRIVING cyclobenzap 2020-0 Yes TAKE 1 Univ ers rine 10 mg 5-26 TABLET BY ity of tablet 00:00: MOUTH AT [place] 00 BEDTIME Medical NEEDED FOR Branch SPASM. WILL CAUSE SLEEPINESS , NO DRIVING cyclobenzap 2020-0 Yes TAKE 1 Univ ers rine 10 mg 5-26 TABLET BY ity of tablet 00:00: MOUTH AT [place] 00 BEDTIME Medical NEEDED FOR Branch SPASM. WILL CAUSE SLEEPINESS , NO DRIVING cyclobenzap 2020-0 Yes TAKE 1 Univ ers rine 10 mg 5-26 TABLET BY ity of tablet 00:00: MOUTH AT [place] 00 BEDTIME Medical NEEDED FOR Branch SPASM. WILL CAUSE SLEEPINESS , NO DRIVING cyclobenzap Yes TAKE 1 Univ ers rine 10 mg 5-26 TABLET BY ity of tablet 00:00: MOUTH AT [place] 00 BEDTIME Medical NEEDED FOR Branch SPASM. WILL CAUSE SLEEPINESS , NO DRIVING cyclobenzap Yes TAKE 1 Univ ers rine 10 mg 5-26 TABLET BY ity of tablet 00:00: MOUTH AT [place] 00 BEDTIME Medical NEEDED FOR Branch SPASM. WILL CAUSE SLEEPINESS , NO DRIVING cyclobenzap Yes TAKE 1 Univ ers rine 10 mg 5-26 TABLET BY ity of tablet 00:00: MOUTH AT [place] 00 BEDTIME Medical NEEDED FOR Branch SPASM. WILL CAUSE SLEEPINESS , NO DRIVING cyclobenzap Yes TAKE 1 Univ ers rine 10 mg 5-26 TABLET BY ity of tablet 00:00: MOUTH AT [place] 00 BEDTIME Medical NEEDED FOR Branch SPASM. WILL CAUSE SLEEPINESS , NO DRIVING rizatriptan Yes rizatripta [facility] 5-18 n 10 mg Health ([employer] [employer] 00:00: disintegra ) 10 MG 00 ting disintegrat tablet ing tablet TAKE 1 TABLET BY MOUTH EVERY DAY rizatriptan Yes rizatripta [facility] 5-18 n 10 mg Health ([employer] 00:00: disintegra ) 10 MG 00 ting disintegrat tablet ing tablet TAKE 1 TABLET BY MOUTH EVERY DAY rizatriptan Yes rizatripta [facility] 5-18 n 10 mg Health ([employer] 00:00: disintegra ) 10 MG 00 ting disintegrat tablet ing tablet TAKE 1 TABLET BY MOUTH EVERY DAY rizatriptan 2019-0 Yes rizatripta [facility] 5-18 n 10 mg Health ([employer] 00:00: disintegra ) 10 MG 00 ting disintegrat tablet ing tablet TAKE 1 TABLET BY MOUTH EVERY DAY rizatriptan 2019-0 Yes rizatripta [facility] 5-18 n 10 mg Health ([employer] 00:00: disintegra ) 10 MG 00 ting disintegrat tablet ing tablet TAKE 1 TABLET BY MOUTH EVERY DAY rizatriptan 2019-0 Yes rizatripta [facility] 5-18 n 10 mg Health ([employer] 00:00: disintegra ) 10 MG 00 ting disintegrat tablet ing tablet TAKE 1 TABLET BY MOUTH EVERY DAY rizatriptan 2019-0 Yes rizatripta [facility] 5-18 n 10 mg Health ([employer] 00:00: disintegra ) 10 MG 00 ting disintegrat tablet ing tablet TAKE 1 TABLET BY MOUTH EVERY DAY rizatriptan 0 Yes rizatripta [facility] 5-18 n 10 mg Health ([employer] 00:00: disintegra ) 10 MG 00 ting disintegrat tablet ing tablet TAKE 1 TABLET BY MOUTH EVERY DAY rizatriptan Yes rizatripta [facility] 5-18 n 10 mg Health ([employer] 00:00: disintegra ) 10 MG 00 ting disintegrat tablet ing tablet TAKE 1 TABLET BY MOUTH EVERY DAY rizatriptan Yes rizatripta [facility] 5-18 n 10 mg Health ([employer] 00:00: disintegra ) 10 MG 00 ting disintegrat tablet ing tablet TAKE 1 TABLET BY MOUTH EVERY DAY rizatriptan Yes rizatripta [facility] 5-18 n 10 mg Health ([employer] 00:00: disintegra ) 10 MG 00 ting disintegrat tablet ing tablet TAKE 1 TABLET BY MOUTH EVERY DAY rizatriptan Yes rizatripta [facility] 5-18 n 10 mg Health ([employer] 00:00: disintegra ) 10 MG 00 ting disintegrat tablet ing tablet TAKE 1 TABLET BY MOUTH EVERY DAY rizatriptan 0 Yes 10mg Take 10 mg [facility] 10 mg 5-18 by mouth [place] disintegrat 00:[place] 00 [facility] rizatriptan Yes 10mg Take 10 mg Univers 10 mg 5-18 by mouth [facility]y of disintegrat 00:00: [place] 00 [facility] rizatriptan Yes 10mg Take 10 mg Univers 10 mg 5-18 by mouth ity of disintegrat 00:00: [place] 00 [facility] rizatriptan 2020-0 Yes 10mg Take 10 mg Univers 10 mg 5-18 by mouth ity of disintegrat 00:00: [place] [facility] rizatriptan 2019-0 Yes 10mg Take 10 mg Univers 10 mg 5-18 by mouth ity of disintegrat 00:00: [place] [facility] rizatriptan 2019-0 Yes 10mg Take 10 mg Univers 10 mg 5-18 by mouth ity of disintegrat 00:00: [place]. [place] [facility] rizatriptan 2019-0 Yes 10mg Take 10 mg Univers 10 mg 5-18 by mouth ity of disintegrat 00:00: [place]. [place] [facility] rizatriptan 0 Yes 10mg Take 10 mg Univers 10 mg 5-18 by mouth ity of disintegrat 00:00: [place]. [place] [facility] rizatriptan 0 Yes 10mg Take 10 mg Univers 10 mg 5-18 by mouth ity of disintegrat 00:00: [place]. [place] [facility] rizatriptan 0 Yes 10mg Take 10 mg Univers 10 mg 5-18 by mouth ity of disintegrat 00:00: [place]. [place] [facility] rizatriptan 0 Yes 10mg Take 10 mg Univers 10 mg 5-18 by mouth ity of disintegrat 00:00: [place]. [place] [facility] rizatriptan 2019-0 Yes 10mg Take 10 mg Univers 10 mg 5-18 by mouth ity of disintegrat 00:00: [place]. [place] [facility] rizatriptan 2019-0 Yes 10mg Take 10 mg Univers 10 mg 5-18 by mouth [facility]y of disintegrat 00:00: [place]. [place] [facility] rizatriptan 2019-0 Yes 10mg Take 10 mg Univers 10 mg 5-18 by mouth ity of disintegrat 00:00: [place]. [place] [facility] rizatriptan 2019-0 Yes 10mg Take 10 mg Univers 10 mg 5-18 by mouth ity of disintegrat 00:00: [place]. [place] [facility] rizatriptan 2020-0 Yes 10mg Take 10 mg Univers 10 mg 5-18 by mouth ity of disintegrat 00:00: [place]. [place] [facility] rizatriptan 2020-0 Yes 10mg Take 10 mg [facility] 10 mg 5-18 by mouth ity of disintegrat 00:00: [place]. [place] [facility] rizatriptan 2020-0 Yes 10mg Take 10 mg [facility] 10 mg 5-18 by mouth ity of disintegrat 00:00: [place]. [place] [facility] rizatriptan 2020-0 Yes 10mg Take 10 mg [facility] 10 mg 5-18 by mouth ity of disintegrat 00:00: [place]. [place] [facility] rizatriptan 2020-0 Yes 10mg Take 10 mg [facility] 10 mg 5-18 by mouth ity of disintegrat 00:00: [place]. [place] [facility] rizatriptan 2020-0 Yes 10mg Take 10 mg Univers 10 mg 5-18 by mouth ity of disintegrat 00:00: [place]. [place] [facility] rizatriptan 2020-0 Yes 10mg Take 10 mg Univers 10 mg 5-18 by mouth [place]y of disintegrat 00:00: [place]. [place] [facility] FLUoxetine 2020-0 Yes 20mg Take 20 mg U nivers 20 mg 4-05 by mouth ity of capsule 00:00: daily. [address] FLUoxetine 2020-0 Yes 20mg Take 20 mg U nivers 20 mg 4-05 by mouth ity of capsule 00:00: daily. [address] FLUoxetine 2020-0 Yes 20mg Take 20 mg U nivers 20 mg 4-05 by mouth ity of capsule 00:00: daily. [address] FLUoxetine 2020-0 Yes 20mg Take 20 mg U nivers 20 mg 4-05 by mouth ity of capsule 00:00: daily. [address] FLUoxetine 2020-0 Yes 20mg Take 20 mg U nivers 20 mg 4-05 by mouth ity of capsule 00:00: daily. [address] FLUoxetine 2020-0 Yes 20mg Take 20 mg U nivers 20 mg 4-05 by mouth ity of capsule 00:00: daily. [address] FLUoxetine 2020-0 Yes 20mg Take 20 mg U nivers 20 mg 4-05 by mouth ity of capsule 00:00: daily. [place] [facility] FLUoxetine 2020-0 Yes 20mg Take 20 mg U nivers 20 mg 4-05 by mouth ity of capsule 00:00: daily. [place] [facility] FLUoxetine 2020-0 Yes 20mg Take 20 mg U nivers 20 mg 4-05 by mouth ity of capsule 00:00: daily. [place] [facility] FLUoxetine 2020-0 Yes 20mg Take 20 mg U nivers 20 mg 4-05 by mouth ity of capsule 00:00: daily. [place] [facility] FLUoxetine 2020-0 Yes 20mg Take 20 mg U nivers 20 mg 4-05 by mouth ity of capsule 00:00: daily. [place] [facility] FLUoxetine 2020-0 Yes 20mg Take 20 mg U nivers 20 mg 4-05 by mouth ity of capsule 00:00: daily. [place] [facility] FLUoxetine 2020-0 Yes 20mg Take 20 mg U nivers 20 mg 4-05 by mouth ity of capsule 00:00: daily. [place] [facility] FLUoxetine 2020-0 Yes 20mg Take 20 mg U nivers 20 mg 4-05 by mouth ity of capsule 00:00: daily. [place] [facility] FLUoxetine 2020-0 Yes 20mg Take 20 mg U nivers 20 mg 4-05 by mouth ity of capsule 00:00: daily. [place] [facility] FLUoxetine 2020-0 Yes 20mg Take 20 mg U nivers 20 mg 4-05 by mouth ity of capsule 00:00: daily. [place] [facility] FLUoxetine 2020-0 Yes 20mg Take 20 mg U nivers 20 mg 4-05 by mouth ity of capsule 00:00: daily. [place] [facility] FLUoxetine 2020-0 Yes 20mg Take 20 mg U nivers 20 mg 4-05 by mouth ity of capsule 00:00: daily. [place] [facility] FLUoxetine 2020-0 Yes 20mg Take 20 mg U nivers 20 mg 4-05 by mouth ity of capsule 00:00: daily. [address] FLUoxetine 2020-0 Yes 20mg Take 20 mg U nivers 20 mg 4-05 by mouth ity of capsule 00:00: daily. [address] FLUoxetine 2020-0 Yes 20mg Take 20 mg U nivers 20 mg 4-05 by mouth ity of capsule 00:00: daily. [address] FLUoxetine 2020-0 Yes 20mg Take 20 mg U nivers 20 mg 4-05 by mouth ity of capsule 00:00: daily. [place] [facility] estradiol 2 2020-0 Yes 2mg Take 2 mg U nivers mg tablet 4-04 by mouth ity of 00:00: daily. [place] [facility] estradiol 2 2020-0 Yes 2mg Take 2 mg U nivers mg tablet 4-04 by mouth ity of 00:00: daily. [place] [facility] estradiol 2 2020-0 Yes 2mg Take 2 mg U nivers mg tablet 4-04 by mouth ity of 00:00: daily. [place] [facility] estradiol 2 2020-0 Yes 2mg Take 2 mg U nivers mg tablet 4-04 by mouth ity of 00:00: daily. [place] [facility] estradiol 2 2020-0 Yes 2mg Take 2 mg U nivers mg tablet 4-04 by mouth ity of 00:00: daily. [place] [facility] estradiol 2 2020-0 Yes 2mg Take 2 mg U nivers mg tablet 4-04 by mouth ity of 00:00: daily. [place] [facility] estradiol 2 2020-0 Yes 2mg Take 2 mg U nivers mg tablet 4-04 by mouth ity of 00:00: daily. [place] [facility] estradiol 2 2020-0 Yes 2mg Take 2 mg U nivers mg tablet 4-04 by mouth ity of 00:00: daily. [place] [facility] estradiol 2 2020-0 Yes 2mg Take 2 mg U nivers mg tablet 4-04 by mouth ity of 00:00: daily. [place] [facility] estradiol 2 2020-0 Yes 2mg Take 2 mg U nivers mg tablet 4-04 by mouth ity of 00:00: daily. [place] [facility] estradiol 2 2020-0 Yes 2mg Take 2 mg U nivers mg tablet 4-04 by mouth ity of 00:00: daily. [place] [facility] estradiol 2 2020-0 Yes 2mg Take 2 mg U nivers mg tablet 4-04 by mouth ity of 00:00: daily. [address] estradiol 2 2020-0 Yes 2mg Take 2 mg U nivers mg tablet 4-04 by mouth ity of 00:00: daily. [address] estradiol 2 2020-0 Yes 2mg Take 2 mg U nivers mg tablet 4-04 by mouth ity of 00:00: daily. [place] [facility] estradiol 2 2020-0 Yes 2mg Take 2 mg U nivers mg tablet 4-04 by mouth ity of 00:00: daily. [place] [facility] estradiol 2 2020-0 Yes 2mg Take 2 mg U nivers mg tablet 4-04 by mouth ity of 00:00: daily. [place] [facility] estradiol 2 2020-0 Yes 2mg Take 2 mg U nivers mg tablet 4-04 by mouth ity of 00:00: daily. [place] [facility] estradiol 2 2020-0 Yes 2mg Take 2 mg U nivers mg tablet 4-04 by mouth ity of 00:00: daily. [place] [facility] estradiol 2 2020-0 Yes 2mg Take 2 mg U nivers mg tablet 4-04 by mouth ity of 00:00: daily. [place] [facility] estradiol 2 2020-0 Yes 2mg Take 2 mg U nivers mg tablet 4-04 by mouth ity of 00:00: daily. [place] [facility] estradiol 2 2020-0 Yes 2mg Take 2 mg U nivers mg tablet 4-04 by mouth ity of 00:00: daily. [place] [facility] estradiol 2 2020-0 Yes 2mg Take 2 mg U nivers mg tablet 4-04 by mouth ity of 00:00: daily. [place] [facility] zolpidem 2014-06 Yes Univers (AMBIEN CR) 0-26 ity of 12.5 mg CR 00:00: [place] tablet [facility] zolpidem 2014-06 Yes Univers (AMBIEN CR) 0-26 ity of 12.5 mg CR 00:00: [place] tablet [facility] zolpidem 2014-06 Yes Univers (AMBIEN CR) 0-26 ity of 12.5 mg CR 00:00: [place] tablet [facility] zolpidem 2014-06 Yes Univers (AMBIEN CR) 0-26 ity of 12.5 mg CR 00:00: [place] tablet [facility] zolpidem 2014-06 Yes Univers (AMBIEN CR) 0-26 ity of 12.5 mg CR 00:00: [place] tablet [facility] zolpidem 2014-06 Yes Univers (AMBIEN CR) 0-26 ity of 12.5 mg CR 00:00: [place] tablet [facility] zolpidem 2014-06 Yes Univers (AMBIEN CR) 0-26 ity of 12.5 mg CR 00:00: [place] tablet 00 [facility] zolpide 2014-06 Yes Univers (AMBIEN CR) 0-26 ity of 12.5 mg CR 00:00: [place] tablet 00 [facility] [place] zolpide 2014-06 Yes Univers (AMBIEN CR) 0-26 ity of 12.5 mg CR 00:00: [place] tablet 00 [facility] zolpide 2014-06 Yes Univers (AMBIEN CR) 0-26 ity of 12.5 mg CR 00:00: [place] tablet [facility] zolpide 2014-06 Yes Univers (AMBIEN CR) 0-26 ity of 12.5 mg CR 00:00: [place] tablet Medical [place] zolpide 2014-06 Yes Univers (AMBIEN CR) 0-26 ity of 12.5 mg CR 00:00: [place] tablet [facility] zolpide 2014-06 Yes Univers (AMBIEN CR) 0-26 ity of 12.5 mg CR 00:00: [place] tablet [facility] Yes Univers (AMBIEN CR) 0-26 ity of 12.5 mg CR 00:00: [place] tablet [facility] Yes Univers (AMBIEN CR) 0-26 ity of 12.5 mg CR 00:00: [place] tablet [facility] Yes Univers (AMBIEN CR) 0-26 ity of 12.5 mg CR 00:00: [place] tablet [facility] Yes Univers (AMBIEN CR) 0-26 ity of 12.5 mg CR 00:00: [place] tablet [facility] zolpide 2014-06 Yes Univers (AMBIEN CR) 0-26 ity of 12.5 mg CR 00:00: [place] tablet 00 [facility] zolpide 2014-06 Yes Univers (AMBIEN CR) 0-26 ity of 12.5 mg CR 00:00: [place] tablet 00 [facility] zolpide 2014-06 Yes Univers (AMBIEN CR) 0-26 ity of 12.5 mg CR 00:00: [place] tablet 00 [facility] zolpide 2014-06 Yes Univers (AMBIEN CR) 0-26 ity of 12.5 mg CR 00:00: [place] tablet [facility] zolpide 2014-06 Yes Univers (AMBIEN CR) 0-26 [...] mg 00:00: [place] capsule 00 [facility] ALPRAZolam 2014-06 Yes Univers (XANAX) 0.5 0-02 ity of mg tablet 00:00: [place] [facility] ALPRAZolam 2014-06 Yes Univers (XANAX) 0.5 0-02 ity of mg tablet 00:00: [place] [facility] ALPRAZolam 2014-06 Yes Univers (XANAX) 0.5 0-02 ity of mg tablet 00:00: [place] [facility] ALPRAZolam 2014-06 Yes Univers (XANAX) 0.5 0-02 ity of mg tablet 00:00: [place] [facility] ALPRAZolam 2014-06 Yes Univers (XANAX) 0.5 0-02 ity of mg tablet 00:00: [place] [facility] 2014[facility] Yes Univers (XANAX) 0.5 0-02 ity of mg tablet 00:00: [place] [facility] Yes Univers (XANAX) 0.5 0-02 ity of mg tablet 00:00: [place] [facility] Yes Univers (XANAX) 0.5 0-02 ity of mg tablet 00:00: [place] [facility] Yes Univers (XANAX) 0.5 0-02 ity of mg tablet 00:00: [place] [facility] Yes Univers (XANAX) 0.5 0-02 ity of mg tablet 00:00: [place] [facility] Yes Univers (XANAX) 0.5 0-02 ity of mg tablet 00:00: [place] [facility]06 Yes Univers (XANAX) 0.5 0-02 ity of mg tablet 00:00: [place] [facility] ALPRAZolam 2014-06 Yes Univers (XANAX) 0.5 0-02 ity of mg tablet 00:00: [place] [facility] ALPRAZolam 2014-06 Yes Univers (XANAX) 0.5 0-02 ity of mg tablet 00:00: [place] [facility] Univers (XANAX) 0.5 0-02 ity of mg tablet 00:00: [place] [facility] Yes Univers (XANAX) 0.5 0-02 ity [...] blood 2020-02-19 14:52:00 132 mm[Hg] [facility] [place] pressure [facility] Diastolic blood 2020-02-19 14:52:00 84 mm[Hg] [facility] Heart rate 2020-02-19 14:52:00 60 /min Universi ty [facility] [place] [facility] Systolic blood 2020-02-19 14:52:00 132 mm[Hg] [facility]iver [facility] Diastolic blood 2020-02-19 14:52:00 84 mm[Hg] [facility] Heart rate 2020-02-19 14:52:00 60 /min Universi ty [facility] [place] [facility] Systolic blood 2020-02-05 16:13:00 128 mm[Hg] [facility] [place] pressure [facility] [facility] Diastolic blood 2020-02-05 16:13:00 87 mm[Hg] [facility] Heart rate 2020-02-05 16:13:00 81 /min Universi ty [facility] Body height 2020-02-05 16:13:00 177.8 cm Universi ty [facility] Body weight 2020-02-05 16:13:00 95.255 kg Universi ty [facility] BMI 2020-02-05 16:13:00 30.13 kg/m2 [facility] Systolic blood 2020-01-20 15:26:00 115 mm[Hg] [facility] [place] [facility] Diastolic blood 2020-01-20 15:26:00 78 mm[Hg] [facility] [place] [facility] Heart rate 2020-01-20 15:26:00 78 /min Universi ty of [facility] Body height 2020-01-20 15:26:00 177.8 cm [facility] [place] [facility] Body weight 2020-01-20 15:26:00 95.255 kg Universi ty [facility] BMI 2020-01-20 15:26:00 30.13 kg/m2 Universi ty [facility] Systolic blood 2020-01-01 13:21:00 123 mm[Hg] [facility] [place] [facility] Diastolic blood 2020-01-01 13:21:00 70 mm[Hg] Unive [facility] Heart rate 2020-01-01 13:21:00 83 /min Universi ty of [facility] Body height 2020-01-01 13:21:00 177.8 cm [facility] Body weight 2020-01-01 13:21:00 95.255 kg [facility] [place] [facility] BMI 2020-01-01 13:21:00 30.13 kg/m2 [facility] Systolic blood 2019-12-04 13:14:00 129 mm[Hg] [facility] [place] [facility] Diastolic blood 2019-12-04 13:14:00 80 mm[Hg] Unive rsity of [facility] Heart rate 2019-12-04 13:14:00 85 /min [facility] Body height 2019-12-04 13:14:00 177.8 cm [facility] Body weight 2019-12-04 13:14:00 95.255 kg [facility] [place] [facility] BMI 2019-12-04 13:14:00 30.13 kg/m2 Universi ty [facility] Procedures Procedure Date / Time Performed Performing Clinician Sourc e XR KNEE 4+ VIEWS LEFT 2021-04-13 19:55:00 Unruly Avalos [facility] Promis 29 2020-03-31 00:00:00 [place] [facility] Survey MR Shoulder wo 2020-03-04 00:00:00 [place] Physician s contrast [id number] EXTERNAL PROVIDER 2020-03-02 05:01:00 Doctor Unassigned, No [facility] [place] RECORDS Name Medical Branch REFERRAL- 2020-02-19 05:01:00 Doctor Unassigned, No [facility] [place] REQUEST/RESPONSE Name Medical Branch REFERRAL- 2020-02-05 05:01:00 Doctor Unassigned, No [facility] [place] REQUEST/RESPONSE Name Medical Branch EXTERNAL PROVIDER 2020-01-21 05:01:00 Doctor Unassigned, No [facility] [place] RECORDS Name Medical Branch EXTERNAL PROVIDER 2019-11-11 05:01:00 Doctor Unassigned, No [facility] [place] RECORDS Name Medical Branch Encounters Start End Encounter Admission Attending Care Care Encounter Source Date/Time Date/Time Type Type Clinicians Facility Department ID 2021-08-12 Outpatient ROBBIEHCA [facility] [id number] [place] 01:01:39 [facility] 2021-05-26 Outpatient ROBBIEHCA [facility] [id number] [place] 11:11:27 [facility] 2021-09-26 2021-09-26 Outpatient GC_SWHAWPRC PRIV PRIV [id number] [facility] 12:48:00 12:48:00 _Fisher_H [id number] [facility] 2021-08-29 2021-08-29 Outpatient GC_SWHAWPRC PRIV PRIV [id number] [facility] 12:51:00 12:51:00 _Fisher_H [id number] [facility] 2021-08-03 2021-08-03 Outpatient GC_SWHAWPRC PRIV PRIV [id number] [facility] 02:58:00 02:58:00 _Fisher_H [id number] [facility] 2021-08-03 2021-08-03 Outpatient GC_SWHAWPRC PRIV PRIV [id number] [facility] 02:58:00 02:58:00 _Fisher_H [id number] [facility] 2021-08-02 2021-08-02 Outpatient GC_SWHAWPRC PRIV PRIV [id number] [facility] 02:09:00 02:09:00 _Fisher_H [id number] [facility] 2021-07-28 2021-07-28 Outpatient GC_SWHAWPRC PRIV PRIV [id number] [facility] 03:49:00 03:49:00 _Fisher_H [id number] [facility] yoan 2021-07-27 2021-07-27 Outpatient GC_SWHAWPRC PRIV PRIV [id number] [facility] 05:32:00 05:32:00 _Fisher_H [id number] [facility] 2021-07-27 2021-07-27 Outpatient Richard PRIV PRIV [id number] 00:00:00 00:00:00 Natty [id number] Matias [id number] 2021-05-31 2021-05-31 Outpatient GC_SWHAOMC_ PRIV PRIV [id number] [facility] 03:30:00 03:30:00 Leanne [id number] [facility] 2021-05-26 2021-05-26 Office KESHIA AVALOS [facility] 1.2.840.114 [id number] [place] 10:15:00 10:30:00 Visit UNRULY TAYLOR 350.1.13.58 H [facility] 9.2.7.2.686 PLAZA 4 [id number] 5 2021-05-24 2021-05-24 Outpatient GC_SWROMÁNPRC PRIV PRIV [id number] [facility] 03:44:00 03:44:00 _Fisher_H [id number] [facility] 2021-05-24 2021-05-24 Outpatient Yang PRIV PRIV [id number] 00:00:00 00:00:00 Celio [id number] Frankie [id number] 2021-05-23 2021-05-23 Outpatient GC_SWDIGNAOMC_ PRIV PRIV [id number] [facility] 04:56:00 04:56:00 Leanne [id number] [facility] 2021-05-13 2021-05-13 Outpatient ANUPAM AVALOS [facility] [id number] 05:22:00 10:50:00 [facility] 2021-05-05 2021-05-05 Refill KESHIA Avalos 1.2.840.114 [id number] [place] 00:00:00 00:00:00 Unruly PAYNEABRAZO [facility] 350.1.13.58 [facility] 9.2.7.2.686 CENTER AT [id number] [place] Alatorre [facility] 2021-05-03 2021-05-03 Refill Ana Grullon [facility] 1.2.840.11 [id number] [place] 00:00:00 00:00:00 Ana Grullon 350.1.13.58 Health MEDICAL 9.2.7.2.686 PLAZA 4 [id number] 5 2021-05-03 2021-05-03 Refill Ana Grullon [facility] 1.2.840.11 [id number] [place] 00:00:00 00:00:00 Ana Grullon 350.1.13.58 Health MEDICAL 9.2.7.2.686 PLAZA 6 [id number] 5 2021-05-02 2021-05-02 Orders Ana Grullon [facility] 1.2.840.11 [id number] [place] 00:00:00 00:00:00 Only Ana Grullon 350.1.13.58 Health MEDICAL 9.2.7.2.686 PLAZA 6 [id number] 5 2021-05-02 2021-05-02 EXT [facility] OP Robbie, EXT MSRDP 1.2.840.114 [id number] [place] 00:00:00 00:00:00 [facility].1.13.58 [facility] ealth 9.2.7.2.686 [id number] 2021-04-28 2021-04-28 Office KESHIA Avalos [facility] 1.2.840.114 [id number] [place] 08:42:47 09:54:20 Visit Unruly CHAMBERINO 350.1.13.58 H ealth MEDICAL 9.2.7.2.686 PLAZA 6 [id number] 5 2021-04-22 2021-04-22 Refill Ana Grullon [facility] 1.2.840.11 [id number] [place] 00:00:00 00:00:00 Ana Grullon 350.1.13.58 Health MEDICAL 9.2.7.2.686 PLAZA 9 [id number] 5 2021-04-20 2021-04-20 EXT H OP Robbie, EXT [facility] 1.2.840.114 1 [id number] [place] 00:00:00 00:00:00 Unruly LOCATION 350.1.13.58 H ealth 9.2.7.2.686 [id number] 0 2021-04-14 2021-04-14 Orders Ana Grullon [facility] 1.2.840.11 [id number] [place] 00:00:00 00:00:00 Only Ana Grullon [place] 350.1.13.58 Health MEDICAL 9.2.7.2.686 PLAZA 7 [id number] 5 2021-04-13 2021-04-13 Office Avalos [facility] 1.2.840.114 [id number] [place] 14:47:02 15:53:55 Visit Unruly CONVENIEN 350.1.13.58 Health T CARE 9.2.7.2.686 CENTER AT [id number] [facility] 2021-04-13 2021-04-13 EXT [facility] OP Robbie, EXT [facility] 1.2.840.114 [id number] [place] 00:00:00 00:00:00 Unruly LOCATION 350.1.13.58 H ealth 9.2.7.2.686 [id number] 2021-04-08 2021-04-08 Outpatient Ric MARTIN [facility] [id number] Univers 09:45:00 09:45:00 SALONI [id number] [facility] 2021-04-08 2021-04-08 Outpatient Ric MARTIN [facility] [id number] Univers 09:45:00 09:45:00 SALONI [facility] 2020-06-15 2020-06-15 Appointmen KESHIA CASEY [facility] [id number] [place] 11:30:00 11:30:00 t; Joe CHURCH at [facility] David Yessenia CASEY Medicine M.D. [facility], [address] 2020-06-01 2020-06-01 Outpatient GC_SWHAOMC_ PRIV PRIV [id number] [facility] 10:16:00 10:16:00 Leanne [id number] [facility] 2020-04-29 2020-04-29 Appointmen ARTHUR [facility] Orthopedics 69 [id number] [place] 11:00:00 11:00:00 t; MINESH, at [facility] ARTHUR, P.A. Sports ans MINESH, Medicine P.A. [facility], [address] 2020-04-01 2020-04-01 Appointmen ARTHUR [facility] Orthopedics 69 [id number] [place] 15:45:00 15:45:00 t; MINESH, at [facility] ARTHUR, P.A. Sports ans MINESH, [facility], [address] 2020-03-15 2020-03-15 Manjit CASEY [facility] [id number] [facility] 11:16:00 17:55:00 RANJIT [facility] 2020-03-15 2020-03-15 Appointlairsa CASEY [facility] [id number] [place] 14:00:00 14:00:00 t; Joe CHURCH [facility] Joe CHURCH 2020-03-11 2020-03-11 Appointalrisa CASEY [facility] Orthopedics 69 [id number] [place] 13:15:00 13:15:00 t; Joe CHURCH at [facility] CELIO [facility] Jamilah Padilla M.D. [facility], [address] 2020-03-04 2020-03-04 Appointlarisa CASEY [facility] Orthopedics 69 [id number] [place] 11:15:00 11:15:00 t; Joe CHURCH at [facility] CELIO [facility] Jamilah Padilla M.D. [facility], [address] 2020-03-02 2020-03-02 Orders Doctor NIXON 1.2.840.114 [id number] Univers 00:00:00 00:00:00 Only Unassigned, [place] 350.1.13.10 ity of [place] [facility] 4.2.7.2.686 Jorge Luis as [phone] [facility] 009 Branch 2020-03-02 2020-03-02 Orders Doctor TIFFANI 1.2.840.114 [id number] 00:00:00 00:00:00 Only Unassigned[place] 350.1.13.10 [place] 4.2.7.2.686 [id number] 2020-03-01 2020-03-01 Emergency E SAMIR, [facility] [id number] [facility] 13:12:00 22:01:00 JAQUELINE [facility] 2020-02-28 2020-02-28 [facility] 1.2.840.114 [id number] Univers 00:00:00 00:00:00 [facility] 350.1.13.10 it y of Surgical 4.2.7.2.686 Jorge Luis as Specialti [phone] Me dical es 198 [facility] 2020-02-28 2020-02-28 [facility] 1.2.840.114 [id number] 00:00:00 00:00:00 [facility] 350.1.13.10 Surgical 4.2.7.2.686 Specialti [id number] es [address] [place] [address] 2020-02-19 2020-02-19 Office [facility] [id number] [id number] [facility] 09:27:22 10:09:07 Visit [facility] 350.1.13.10 it y of Surgical 4.2.7.2.686 Jorge Luis as Specialti [id number] Me dical es 198 [facility] 2020-02-19 2020-02-19 Office [facility] 1.2.041.890 [id number] 09:27:22 10:09:07 Visit [facility] 350.1.13.10 Surgical 4.2.7.2.686 Specialti [id number] es [address] [place] [address] 2020-02-19 2020-02-19 Outpatient Ric MARTIN [facility] [id number] Univers 09:30:00 09:30:00 SALONI [id number] [facility] 2020-02-19 2020-02-19 [facility] [id number] Univers 09:30:00 09:30:00 SALONI [facility] 2020-02-19 2020-02-19 Orders Doctor NIXON 1.2.840.114 [id number] Univers 00:00:00 00:00:00 Only Unassigned[place] 350.1.13.10 ity of [place] [facility] 4.2.7.2.686 Jorge Luis as [id number] [address] 2020-02-19 2020-02-19 Orders Doctor TIFFANI 1.2.840.114 [id number] 00:00:00 00:00:00 Only Unassigned[place] 350.1.13.10 [facility] 4.2.7.2.686 [id number] 2020-02-17 2020-02-17 Outpatient [facility] [id number] Univers 17:30:00 17:30:00 SALONI ity [facility] 2020-02-05 2020-02-05 Office [facility] 1.2.840.114 [id number] Univers 11:01:26 11:57:43 Visit Bon [facility] 350.1.13.10 it y of Surgical 4.2.7.2.686 Jorge Luis as Specialti [phone] Oh dical es 198 [facility] 2020-02-05 2020-02-05 Outpatient [facility] [id number] Univers 11:30:00 11:30:00 SALONI ity [facility] 2020-02-05 2020-02-05 Out[facility] [id number] Univers 11:15:00 11:15:00 BON ity [facility] 2020-02-05 2020-02-05 Orders Doctor TIFFANI 1.2.840.114 [id number] Univers 00:00:00 00:00:00 Only Unassigned[place] 350.1.13.10 ity of [place] [facility] 4.2.7.2.686 Jorge Luis as [id number] [address] 2020-02-04 2020-02-04 Telephone [facility] 1.2.840.114 [id number] Univers 00:00:00 00:00:00 Saloni [facility] 350.1.13.10 it y of Surgical 4.2.7.2.686 Jorge Luis as Specialti [id number] Oh dical es 198 [facility] 2020-02-03 2020-02-03 Refill [facility] 1.2.336.750 [id number] Univers 00:00:00 00:00:00 Saloni L Health 350.1.13.10 it y of Surgical 4.2.7.2.686 Jorge Luis as Specialti [id number] Oh dical es 198 [facility] 2020-01-22 2020-01-22 Telephone [facility] 1.2.337.684 [id number] Univers 00:00:00 00:00:00 [facility] 350.1.13.10 it y of Surgical 4.2.7.2.686 Jorge Luis as Specialti [phone] Me dical es 198 [facility] 2020-01-22 2020-01-22 [facility] 1.2.384.078 [id number] Univers 00:00:00 00:00:00 [facility] 350.1.13.10 it y of Surgical 4.2.7.2.686 Jorge Luis as Specialti [phone] Oh dical es 198 [facility] 2020-01-21 2020-01-21 Orders Doctor TIFFANI 1.2.840.114 [id number] Univers 00:00:00 00:00:00 Only Unassigned[place] 350.1.13.10 ity of [place] [facility] 4.2.7.2.686 Jorge Luis as [phone] [address] 2020-01-20 2020-01-20 Office [facility] 1.2.840.114 [id number] Univers 09:59:27 16:42:22 Visit [facility] 350.1.13.10 it y of Surgical 4.2.7.2.686 Jorge Luis as Specialti [phone] Oh dical es 198 [facility] 2020-01-20 2020-01-20 Outpatient [facility] [id number] Univers 10:00:00 10:00:00 BON ity [facility] 2020-01-20 2020-01-20 Outpatient [facility] [id number] Univers 10:00:00 10:00:00 BON [id number] ity [facility] 2020-01-01 2020-01-01 Office [facility] 1.2.840.114 [id number] Univers 08:15:23 08:50:41 Visit Bon [facility] 350.1.13.10 it y of Surgical 4.2.7.2.686 Jorge Luis as Specialti [phone] Oh dical es 198 [facility] 2020-01-01 2020-01-01 Outpatient Ric BHARDWAJ [facility] [id number] Univers 08:15:00 08:15:00 BON [id number] ity [facility] 2020-01-01 2020-01-01 Outpatient [facility] [id number] Univers 08:15:00 08:15:00 BON ity [facility] 2019-12-19 2019-12-19 Outpatient Ric BHARDWAJ [facility] [id number] Univers 08:00:00 08:00:00 BON ity [facility] 2019-12-19 2019-12-19 Outpatient [facility] [id number] Univers 08:00:00 08:00:00 [facility] 2019-12-16 2019-12-16 Outpatient Ric BHARDWAJ [facility] [id number] Univers 08:15:00 08:15:00 BON [id number] ity [facility] 2019-12-16 2019-12-16 Outpatient [facility] [id number] Univers 08:15:00 08:15:00 [facility] 2019-12-04 2019-12-04 [facility] [id number] Univers 08:10:44 08:23:17 Visit [facility] 350.1.13.10 it y of Surgical 4.2.7.2.686 Jorge Luis as Specialti [phone] Oh dical es 198 [facility] 2019-12-04 2019-12-04 [facility] [id number] Univers 08:00:00 08:00:00 [facility] 2019-11-11 2019-11-11 Orders Doctor NIXON 1.2.840.114 [id number] Univers 00:00:00 00:00:00 Only Unassigned[place] 350.1.13.10 ity of [place] [facility] 4.2.7.2.686 Jorge Luis as [phone] [facility] yoan 009 Branch Results Test Test Test Results Result Source Description Time Comments Comments MR Shoulder wo 2020-02- PROCEDURE [place] Phys[place] contrast [id number] INFORMATION:Exam: MR Right 17:13:00 Upper Extremity Joint Without Contrast; ShoulderExam date [...] inferior spurring.Tucker Pham MD On 03/11/2020 11:46:55; [id number]--Viud by: Tucker Pham MDDictated Date/time: 03/11/20 11:46Electronically Signed by: Tucker Pham MD 03/11/2011:46FINAL REPORT
--- NOTE | 2021-11-21 21:11 | ER ---
Nurse's Notes [facility] Name: Amy Segura Age: 56 yrs Sex: Female : 1965 Arrival Date: 11/21/2021 Time: 20:45 Bed Waiting Private MD: Diagnosis: ED Course: 11/21 20:45 Patient arrived in ED. ag3 21:04 Maria Teresa Muñiz [facility] aj[facility] 21:04 Mc Yarbrough MD is Attending Physician. aj3 Administered Medications: No medications were administered Outcome: 21:10 Patient left the ED. ld1 Signatures: Khadra Crawford ag3 Ana Cristina Block RN RN ld1 Maria Teresa Muñiz NP MATCHING MACHINE OPERATOR aj3
== END 2021-11-21 21:10 | disposition left against medical advice (07) ==
LOC: ER 20:45
DX: Z02.9 Encounter for administrative examinations, unspecified (principal)